=== PATIENT | female | born 1950 | race Caucasian/White ===

== ENCOUNTER 2024-06-01 09:15 | Day surgery (SDC) | payer MEDICARE, MEDICAID, SELFPAY ==
[2024-05-26 15:29] VITALS: BMI 18.2
[2024-05-27 08:31] VITALS: BMI 18.2
--- OUTSIDE RECORDS SUMMARY | 2024-06-01 09:17 | XMS_ITS | Continuity of Care Document ---
Author Organization [facility] Address [address] [place] [id number]- Care Team Providers Care [employer] History Teacher Name Role Phone Chaparro Mann MD Primary Care Physician Encounter [facility] [place] Date(s): 10/27/20 - 11/03/20 [facility] [address] [place] [id number] Attending Physician: Otto Gamino MD Admitting Physician: Otto Gamino MD Allergies, Adverse Reactions, Alerts Substance Reaction Severity Status carbamazepine double vision. vertigo Acti ve Haldol Active Immunizations Given and Recorded Vaccine Date Status Refusal Reason Influenza Virus Vaccine (oldterm) 08/21/06 Given influenza virus vaccine, inactivated 07/17/05 Give n tetanus-diphtheria toxoids (Td) 11/04/00 Given Medications Abilify 15 mg oral tablet 15 mg, 1, tablet, By Mouth, Daily, # 30 tablet, Refills 0, Maintenance, 04/14/19 17:11:10 EDT, at nightime Start Date: 04/14/19 Status: Ordered aspirin 81 mg oral delayed release tablet 81 mg, 1, tablet, By Mouth, Daily, Refills 0, Maintenance, 06/01/20 9:13:00 EDT Start Date: 06/01/20 Status: Ordered atorvastatin 10 mg oral tablet 1 tablet = 10 mg, By Mouth, Daily, # 30 tablet, 0 Refills, Maintenance, 06/10/19 11:51:22 EDT Start Date: 06/10/19 Status: Ordered buPROPion 100 mg/12 hours (SR) oral tablet, extended release 2 tablet = 200 mg, By Mouth, Daily, 0 Refills, Maintenance, 04/14/19 17:10:34 EDT Start Date: 04/14/19 Status: Ordered Duoneb Inhalation Solution 1, vials, Neb, Every 4 hours, PRN, Refills 0, Maintenance, 04/17/19 13:02:10 EDT, Inhalation Solution Start Date: 04/17/19 Status: Ordered elppa CoQ10 = 120 mg, By Mouth, Daily, 0 Refills, Maintenance, 03/07/15 14:21:56 EDT Start Date: 03/07/15 Status: Ordered Fish Oil 1200 mg oral capsule 1 capsule = 1,200 mg, By Mouth, Daily, 0 Refills, Maintenance, 03/07/15 14:23:59 EDT Start Date: 03/07/15 Status: Ordered Icaps AREDS By Mouth, Daily, 0 Refills, Maintenance, 10/27/20 15:50:00 EST, Partial fill upon patient request if the prescription is for a schedule II opioid drug. Start Date: 10/27/20 Status: Ordered Incruse Ellipta 62.5 mcg/inh inhalation powder 1 each, Inhalation, Every 24 hours, doses should be taken at least 24 hours apart, # 30 each, 0 Refills, Maintenance, 04/18/19 8:04:04 EDT, Powder Start Date: 04/18/19 Status: Ordered isosorbide mononitrate 30 mg oral tablet, extended release 30 mg, 1, tablet, By Mouth, Daily in AM, # 90 tablet, Refills 1, Tot. Refills 1, Maintenance, 08/16/20 15:10:00 EST, Route to Pharmacy Electronically, [facility]/pharmacy #[id number], Partial fill upon patient request, 159, cm, 07/08/20 6:37:00 EDT, Height, 49, kg... Start Date: 08/16/20 Stop Date: 02/12/21 Status: Ordered Metamucil 3.4 gm/5.2 gm oral powder for reconstitution = 3.4 Gm, By Mouth, Daily, 0 Refills, Maintenance, 03/25/20 8:37:00 EDT Start Date: 03/25/20 Status: Ordered metoprolol 25 mg oral tablet 12.5 mg, 0.5, tablet, By Mouth, 2 times a day, Dispense Tartrate, # 90 tablet, Refills 3, Tot. Refills 3, Maintenance, 11/25/19 10:23:00 EDT, Route to Pharmacy Electronically, [facility]/pharmacy #[id number], 162, cm, 09/21/19 15:36:00 EST, Height, 48.8, kg, 04/24... Start Date: 11/25/19 Stop Date: 11/19/20 Status: Ordered Myrbetriq 25 mg oral tablet, extended release 1 tablet = 25 mg, By Mouth, Daily, do not crush or chew, # 30 tablet, 0 Refills, Maintenance, 09/21/19 15:39:00 EST, ER Tablet Start Date: 09/21/19 Status: Ordered risperiDONE 1 mg oral tablet 1.5 mg, By Mouth, Daily at bedtime, Refills 0, Maintenance, 04/17/19 14:26:18 EDT Start Date: 04/17/19 Status: Ordered Synthroid 0.112 mg oral tablet 1 tablet = 112 mcg, By Mouth, Daily, NAME BRAND ONLY, # 90 tablet, 0 Refills, Maintenance, 07/21/1913:41:30 EST, Tablet Start Date: 07/21/19 Status: Ordered TEGretol XR 100 mg oral tablet, extended release 200 mg, By Mouth, 2 times a day, Refills 0, Maintenance, 04/20/19 15:28:29 EDT Start Date: 04/20/19 Status: Ordered TEGretol XR 400 mg oral tablet, extended release 400 mg, By Mouth, Daily at bedtime, Refills 0, Maintenance, 04/20/19 15:28:40 EDT Start Date: 04/20/19 Status: Ordered Problem List Condition Effective Dates Status Health Status Inform ant Bipolar depression(Confirmed) Active Chronic obstructive airway disease(Confirmed) Active CKD (chronic kidney disease)(Confirmed) Active Diabetes mellitus - adult onset(Confirmed) Active ParaplannerJuan Jose Villanueva(Confirmed) Active Hypothyroidism(Confirmed) Active Osteoporosis(Confirmed) Active Systolic dysfunction(Confirmed) Active PVCs (premature ventricular contractions)(Confirmed) Active Vital Signs Most recent to oldest [Reference Range]: 1 Height 162.5 cm (10/27/20 3:17 PM) Weight 51 kg (10/27/20 3:17 PM) Pulse Rate [55-90 bpm] 64 bpm (10/27/20 3:17 PM) Body Mass Index [18.5-24.99] 19.31 (10/27/20 3:17 PM) Blood Pressure [90-138/55-84 mm Hg] 124/ 70mm Hg (10/27/20 3:17 PM) Mode of Delivery (Oxygen) Room air (10/27/20 3:17 PM) Blood pressure sites Arm, left (10/27/20 3:17 PM) Weight Obtained Via Patient/family state d (10/27/20 3:17 PM) Social History Social History Type Response Smoking Status Former smoker, quit more than 30 days ago; Other: quit 5 yrs ago 04/19/2015; entered on: 05/12/20 Sex
--- OUTSIDE RECORDS SUMMARY | 2024-06-01 09:17 | XMS_ITS | Continuity of Care Document ---
Author Organization [facility] Address [address] [place] [address]- Care Team Providers Care Title Examiner Name Role Phone Chaparro Mann MD Primary Care Physician Encounter [facility] [place] Date(s): 08/13/23 - 09/12/23 [facility] [address] [place] [address]- Attending Physician: Vikram Pierce Admitting Physician: Vikram Pierce Referring Physician: Vikram Pierce Allergies, Adverse Reactions, Alerts Substance Reaction Severity Status carbamazepine double vision. vertigo Acti ve Haldol Active Immunizations Given and Recorded Vaccine Date Status Refusal Reason hepatitis B adult vaccine 09/13/22 Recorded hepatitis B adult vaccine 08/13/22 Recorded [id number] 12y+ bivalent booster vax 07/13/22 Recorded SARS-CoV-2 (COVID-19) mRNA BNT-162b2 vac 12/27/21 Recorded SARS-CoV-2 (COVID-19) mRNA BNT-162b2 vac 08/04/21 Recorded SARS-CoV-2 (COVID-19) mRNA BNT-162b2 vac 12/21/20 Recorded SARS-CoV-2 (COVID-19) mRNA BNT-162b2 vac 11/29/20 Recorded Influenza Virus Vaccine (oldterm) 08/21/06 Given influenza virus vaccine, inactivated 07/17/05 Give n tetanus-diphtheria toxoids (Td) 11/04/00 Given Medications Abilify 15 mg oral tablet 15 mg, 1, tablet, By Mouth, Daily, # 30 tablet, Refills 0, Maintenance, 04/14/19 17:11:10 EDT, at nightime Start Date: 04/14/19 Status: Ordered Albuterol (Eqv-ProAir HFA) 90 mcg/inh inhalation aerosol 2 puffs, Inhalation, Every 6 hours, PRN Wheezing/Shortness of Breath, # 6.7 Gm, 11 Refills, Maintenance, 03/04/23 11:27:00 EDT, [facility]/pharmacy #[id number], Partial fill upon patient request if the prescription is for a schedule II opioid drug., 2 puffs Inhala... Start Date: 03/04/23 Status: Ordered amLODIPine 5 mg oral tablet 5 mg, 1, tablet, By Mouth, Daily, # 30 tablet, Refills 0, Maintenance, 08/14/22 14:55:00 EST, Partial fill upon patient request if the prescription is for a schedule II opioid drug. Start Date: 08/14/22 Status: Ordered atorvastatin 10 mg oral tablet 1 tablet = 10 mg, By Mouth, Daily, # 30 tablet, 0 Refills, Maintenance, 06/10/19 11:51:22 EDT Start Date: 06/10/19 Status: Ordered azelastine 137 mcg/inh (0.1%) nasal spray 2 sprays, Nares, Both, Daily, PRN Other Allergies, # 30 mL, 11 Refills, Maintenance, 03/04/23 11:27:00 EDT, [place], [facility]/pharmacy #[id number], Partial fill upon patient request if the prescription is for aschedule II opioid drug., 2 sprays Nares, Both Kisha... Start Date: 03/04/23 Status: Ordered buPROPion 100 mg/12 hours (SR) oral tablet, extended release 2 tablet = 200 mg, By Mouth, Daily, 0 Refills, Maintenance, 04/14/19 17:10:34 EDT Start Date: 04/14/19 Status: Ordered elppa CoQ10 = 120 mg, By Mouth, Daily, 0 Refills, Maintenance, 03/07/15 14:21:56 EDT Start Date: 03/07/15 Status: Ordered Fish Oil 1200 mg oral capsule 1 capsule = 1,200 mg, By Mouth, Daily, 0 Refills, Maintenance, 03/07/15 14:23:59 EDT Start Date: 03/07/15 Status: Ordered Incruse Ellipta 62.5 mcg/inh inhalation powder 1 each = 62.5 mcg, Inhalation, Every 24 hours, doses should be taken at least 24 hours apart, # 1 each, 11 Refills, Maintenance, 03/04/23 11:28:00 EDT, Powder, [facility]/pharmacy #[id number], Partial fill upon patient request if the prescription is for a schedule... Start Date: 03/04/23 Status: Ordered metoprolol 25 mg oral tablet, extended release 25 mg, 1, tablet, By Mouth, Daily, # 90 tablet, Refills 3, Tot. Refills 3, Maintenance, 08/15/23 11:52:00 EST, [id number], 161, cm, 07/22/23 12:23:00 EST, Height, 46.6, kg, 07/15/23 16:43:00 EST, Dry Weight Start Date: 08/15/23 Stop Date: 08/09/24 Status: Ordered PreserVision AREDS 2 oral capsule By Mouth, Daily, BID, 0 Refills, Maintenance, 12/07/20 13:34:00 EDT, Partial fill upon patient request if the prescription is for a schedule II opioid drug. Start Date: 12/07/20 Status: Ordered Rayaldee 30 mcg oral capsule, extended release 1 capsule = 30 mcg, By Mouth, Daily at bedtime, 0 Refills, Maintenance, 03/23/22 13:47:00 EDT, Partial fill upon patient request if the prescription is for a schedule II opioid drug. Start Date: 03/23/22 Status: Ordered risperiDONE 1 mg oral tablet 1.5 mg, By Mouth, Daily at bedtime, Refills 0, Maintenance, 04/17/19 14:26:18 EDT Start Date: 04/17/19 Status: Ordered Synthroid 0.112 mg oral tablet 1 tablet = 112 mcg, By Mouth, Daily, NAME BRAND ONLY, # 90 tablet, 0 Refills, Maintenance, 07/21/1913:41:30 EST, Tablet Start Date: 07/21/19 Status: Ordered TEGretol XR 200 mg oral tablet, extended release 1 tablet = 200 mg, By Mouth, 2 times a day, brand name only, # 60 tablet, 5 Refills, Maintenance, 03/06/22 12:05:00 EDT, ER Tablet, Partial fill upon patient request if the prescription is for a schedule II opioid drug. Start Date: 03/06/22 Status: Ordered Problem List Condition Confirmation Course Effective Dates Status H ealth Status Informant Bipolar depression Confirmed Active Chronic obstructive airway disease Confirmed Active CKD (chronic kidney disease) Confirmed Active Diabetes mellitus - adult onset Confirmed Active Grazing Aide-Johanny Villanueva Confirmed Active Hypothyroidism Confirmed Active Osteoporosis Confirmed Active Systolic dysfunction Confirmed Active PVCs (premature ventricular contractions) Confirmed Active Social History Social History Type Response Smoking Status Former smoker, quit more than 30 days ago; Other: quit 5 yrs ago 04/19/2015; entered on: 05/12/20 Sex Patient Care team information Care Team Personnel Name: Vera Mccauley Position: [facility] Outreach Member Role: Lifetime Consulting Physician Name: Susan Smith RN Position: [facility] ED RN W/OE and Tasks Member Role: Primary Care Nurse Name: Juan Carlos Chapa RN Position: [facility] RN Member Role: Primary Care Nurse Name: Barbara Chapa RN Position: [facility] AMB Nurse Member Role: Primary Care Nurse Name: Maryuri Cesar MD Position: [facility] Renal MD Member Role: Lifetime Consulting Physician Address: Address: [address] [place] [address] [place] [address]- Name: Gaye Mondragon RN Position: [facility] RN Supv Member Role: Primary Care Nurse Name: Qi Ordaz RN Position: [facility] SN RN Member Role: Primary Care Nurse Name: Chaparro Mann MD Position: [facility] Physician - Primary Care Member Role: PCP Address: Address: [address] [place] [address], [place] [address]- Care Team Related Persons Name: SUSAN TAM Address: home [address] [place] [address] Name: NANCIE WELLS Address: [address] [place] [address]
--- OUTSIDE RECORDS SUMMARY | 2024-06-01 09:17 | XMS_ITS | Continuity of Care Document ---
Author Organization [facility] Address [address] [place] [address]- Care Team Providers Care Link Trainer Operator Name Role Phone Chaparro Mann MD Primary Care Physician [phone] Encounter [facility] [place] Date(s): 01/30/23 - 03/01/23 [facility] [address] [place] [address]- Attending Physician: Vikram Pierce Admitting Physician: AdmVikram gracia Referring Physician: Vikram Pierce Allergies, Adverse Reactions, Alerts Substance Reaction Severity Status carbamazepine double vision. vertigo Acti ve Haldol Active Immunizations Given and Recorded Vaccine Date Status Refusal Reason hepatitis B adult vaccine 09/13/22 Recorded hepatitis B adult vaccine 08/13/22 Recorded [id number] 12y+ bivalent booster vax 07/13/22 Recorded SARS-CoV-2 [...] at nightime Start Date: 04/14/19 Status: Ordered amLODIPine 5 mg oral tablet [...] EDT, Powder Start Date: 04/18/19 Status: Ordered metoprolol 25 mg oral tablet, extended release 25 mg, 1, tablet, By Mouth, Daily, # 90 tablet, Refills 3, Tot. Refills 3, Maintenance, 10/31/22 16:31:00 EST, Route to Pharmacy Electronically, [facility]/pharmacy #[id number], 161, cm, 08/15/22 8:56:00 EST, Height, 51, kg, 07/28/21 7:20:00 EST, Dry Weight Start Date: 10/31/22 Stop Date: 10/26/23 Status: Ordered PreserVision AREDS 2 oral capsule [...] Diabetes mellitus - adult onset Confirmed Active Daub Color Mixer-Johanny Villanueva Confirmed Active Hypothyroidism Confirmed Active Osteoporosis Confirmed Active Systolic dysfunction Confirmed Active PVCs (premature ventricular contractions) Confirmed Active Social History Social History Type Response Smoking Status Former smoker, quit more than 30 days ago; Other: quit 5 yrs ago 04/19/2015; entered on: 05/12/20 Sex EKG study * Event Display: EKG Authored Date: Patient Care team information Care Team Personnel Name: Vera Mccauley Position: [facility] Outreach Member Role: Lifetime Consulting Physician Name: Susna Smith RN Position: [facility] ED RN W/OE and Tasks Member Role: Primary Care Nurse Name: Teri Salazar RN Position: [facility] RN Member Role: Primary Care Nurse Name: Juan Carlos Chapa RN Position: [facility] RN Member Role: Primary Care Nurse Name: Barbara Chapa RN Position: [facility] RN Member Role: Primary Care Nurse Name: Gaye Mondragon RN Position: [facility] RN Supv Member Role: Primary Care Nurse Name: Qi Ordaz RN Position: [facility] SN RN Member Role: Primary Care Nurse Name: Chaparro Mann MD Position: [facility] Physician - Primary Care Member Role: PCP Address: Address: [address] [place] [id number]- Care Team Related Persons Name: SUSAN TAM Address: home [address] [place] [address] Name: NANCIE WELLS Address: [address] [place] [address]
--- OUTSIDE RECORDS SUMMARY | 2024-06-01 09:17 | XMS_ITS | Continuity of Care Document ---
Author Organization [facility] Address [address] [place] [address]- Care Team Providers Care Flat Sorting Machine Clerk Name Role Phone Chaparro Mann MD Primary Care Physician Encounter [facility] [place](s): 07/31/21 - 08/30/21 [facility] [address] [place] [id number]- [place] Allergies, Adverse Reactions, Alerts Substance Reaction Severity [...] EDT, Powder Start Date: 04/18/19 Status: Ordered Metamucil 3.4 gm/5.2 gm oral powder for reconstitution = 3.4 Gm, By Mouth, Daily, 0 Refills, Maintenance, 03/25/20 8:37:00 EDT Start Date: 03/25/20 Status: Ordered metoprolol 25 mg oral tablet 12.5 mg, 0.5, tablet, By Mouth, 2 times a day, Dispense Tartrate, # 90 tablet, Refills 3, Tot. Refills 3, Maintenance, 11/14/20 16:22:00 EST, Route to Pharmacy Electronically, [facility]/pharmacy #[id number], 162.5, cm, 10/27/20 15:17:00 EST, Height, 49, kg, 07/08... Start Date: 11/14/20 Stop Date: 11/09/21 Status: Ordered Myrbetriq 25 mg oral tablet, extended release 1 tablet = 25 mg, By Mouth, Daily, do not crush or chew, # 30 tablet, 0 Refills, Maintenance, 09/21/19 15:39:00 EST, ER Tablet Start Date: 09/21/19 Status: Ordered PreserVision AREDS 2 oral capsule By Mouth, Daily, BID, 0 Refills, Maintenance, 12/07/20 13:34:00 EDT, Partial fill upon patient request if the prescription is for a schedule II opioid drug. Start Date: 12/07/20 Status: Ordered Rayaldee 30 mcg oral capsule, extended release 1 capsule = 30 mcg, By Mouth, Daily, 0 Refills, Maintenance, 07/28/21 7:15:00 EST, Partial fill upon patient request if the prescription is for a schedule II opioid drug. Start Date: 07/28/21 Status: Ordered risperiDONE 1 mg oral tablet [...] 15:28:40 EDT Start Date: 04/20/19 Status: Ordered TEGretol XR 400 mg oral tablet, extended release 400 mg, 1, tablet, By Mouth, 2 times a day, pt takes 1 tab in the am ,1 tab in the after noon and 2tabs at night., Refills 0, Maintenance, 12/21/20 9:25:00 EDT, Partial fill upon patient request if the prescription is for a schedule II opioid drug. Start Date: 12/21/20 Status: Ordered Ubiquinone = 100 mg, By Mouth, Daily, 0 Refills, Maintenance, 12/07/20 13:34:00 EDT, Partial fill upon patientrequest if the prescription is for a schedule II opioid drug. Start Date: 12/07/20 Status: Ordered Problem List Condition Effective Dates Status Health Status Inform ant Bipolar depression(Confirmed) Active Chronic obstructive airway disease(Confirmed) Active CKD (chronic kidney disease)(Confirmed) Active Diabetes mellitus - adult onset(Confirmed) Active Vessel Traffic OfficerJuan Jose 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
--- OUTSIDE RECORDS SUMMARY | 2024-06-01 09:17 | XMS_ITS | Continuity of Care Document ---
Author Organization [facility] Address [address] [place] [address]- Care Team Providers Care Call Center Team Leader Name Role Phone Chaparro Mann MD Primary Care Physician Encounter [facility] [place] Date(s): 05/11/20 - 06/10/20 [facility] [address] [place] [id number]- [facility] Allergies, Adverse Reactions, Alerts Substance Reaction Severity [...] 17:10:34 EDT Start Date: 04/14/19 Status: Ordered calcium (as citrate)-vitamin D 200 mg-250 intl units oral tablet See Instructions, 1 tablet By Mouth daily, # 100 tablet, 6 Refills, Maintenance, 04/10/17 11:39:51,Tablet Start Date: 04/10/17 Status: Ordered Docusate 0 Refills, Maintenance, 06/01/20 9:13:00 EDT Start Date: 06/01/20 Status: Ordered Duoneb Inhalation Solution 1, vials, [...] EDT, Powder Start Date: 04/18/19 Status: Ordered Keppra 500 mg oral tablet = 500 mg, By Mouth, 2 times a day, 0 Refills, Maintenance, 04/20/19 15:28:56 EDT, Tablet Start Date: 04/20/19 Status: Ordered Metamucil 3.4 gm/5.2 gm oral powder for reconstitution = 3.4 Gm, By Mouth, Daily, 0 Refills, Maintenance, 03/25/20 8:37:00 EDT Start Date: 03/25/20 Status: Ordered metoprolol 25 mg oral tablet 12.5 mg, 0.5, tablet, By Mouth, 2 times a day, Dispense Tartrate, # 90 tablet, Refills 3, Tot. Refills 3, Maintenance, 11/25/19 10:23:00 EDT, Route to Pharmacy Electronically, [facility]/pharmacy #[id number], 162, cm, 09/21/19 15:36:00 EST, Height, 48.8, kg, 04/24... Start Date: 11/25/19 Stop Date: 11/19/20 Status: Ordered Myrbetriq 25 mg oral tablet, extended release 1 tablet = 25 mg, By Mouth, Daily, do not crush or chew, # 30 tablet, 0 Refills, Maintenance, 09/21/19 15:39:00 EST, ER Tablet Start Date: 09/21/19 Status: Ordered PrednisoLONE = 10 mg, By Mouth, Daily, 0 Refills, Maintenance, 03/25/20 8:34:00 EDT Start Date: 03/25/20 Status: Ordered PreserVision AREDS 2 oral capsule 1 capsule, By Mouth, 2 times a day, 0 Refills, Maintenance, 04/14/19 1:21:46 EDT Start Date: 04/14/19 Status: Ordered risperiDONE 1 mg oral tablet [...] Start Date: 04/20/19 Status: Ordered TEGretol XR 200 mg oral tablet, extended release 1 tablet = 200 mg, By Mouth, 4 times a day, 0 Refills, Maintenance, 03/25/20 8:35:00 EDT Start Date: 03/25/20 Status: Ordered TEGretol XR 400 mg oral tablet, extended release 400 mg, By Mouth, Daily at bedtime, Refills 0, Maintenance, 04/20/19 15:28:40 EDT Start Date: 04/20/19 Status: Ordered VESIcare 10 mg oral tablet 1 tablet = 10 mg, By Mouth, Daily, # 30 tablet, 0 Refills, Maintenance, 03/07/15 14:21:42, Tablet Start Date: 03/07/15 Status: Ordered Problem List Condition Effective Dates Status Health Status Inform ant Bipolar depression(Confirmed) Active Chronic obstructive airway disease(Confirmed) Active CKD (chronic kidney disease)(Confirmed) Active Diabetes mellitus - adult onset(Confirmed) Active 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
--- OUTSIDE RECORDS SUMMARY | 2024-06-01 09:17 | XMS_ITS | Continuity of Care Document ---
Author Organization [facility] Address [address] [place] [address]- Care Team Providers Care Knock Out Hand Name Role Phone Chaparro Mann MD Primary Care Physician [phone] Encounter [facility] [place] Date(s): 10/26/21 - 11/25/21 [facility] [address] [place] [id number]- Attending Physician: Vikram Pierce Admitting Physician: Vikram Pierce Referring Physician: Admtr, Ar8 Allergies, Adverse Reactions, Alerts Substance Reaction Severity [...] at nightime Start Date: 04/14/19 Status: Ordered atorvastatin 10 mg oral tablet [...] 8:37:00 EDT Start Date: 03/25/20 Status: Ordered Metoprolol Tartrate 25 mg oral tablet 0.5 tablet, By Mouth, 2 times a day, # 90 tablet, 3 Refills, [id number], 162.5, cm, 10/26/21 12:37:00 EST, Height, 51, kg, 07/28/21 7:20:00 EST, Dry Weight Start Date: 11/06/21 Status: Ordered Myrbetriq 25 mg oral tablet, [...] Active Diabetes mellitus - adult onset(Confirmed) Active 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
--- OUTSIDE RECORDS SUMMARY | 2024-06-01 09:17 | XMS_ITS | Continuity of Care Document ---
Author Organization [facility] Address [address] [place] [address]- Care Team Providers Care Air Drier Machine Operator Name Role Phone Chaparro Mann MD Primary Care Physician [phone] [place] [facility] [place](s[place] 10/29/23 - 11/28/23 [facility] [address] [place] [address]- [place] Allergies, Adverse Reactions, Alerts Substance Reaction Severity Status carbamazepine double vision. vertigo Acti ve Haldol Active Immunizations Given and Recorded Vaccine Date Status Refusal Reason hepatitis B adult vaccine 09/13/22 Recorded hepatitis B adult vaccine 08/13/22 Recorded [id number] 12y+ bivalent booster vax 07/13/22 Recorded SARS-CoV-2 [...] Gm, 11 Refills, Maintenance, 03/04/23 11:27:00 EDT, [facility]/pharmacy #[id number], Partial fill upon patient request if [...] mL, 11 Refills, Maintenance, 03/04/23 11:27:00 EDT, [place], [facility]/pharmacy #[id number], Partial fill upon patient request if [...] 11 Refills, Maintenance, 03/04/23 11:28:00 EDT, [place], [facility]/pharmacy #[id number], Partial fill upon patient request if the prescription is for a schedule... Start Date: 03/04/23 Status: Ordered metoprolol 25 mg oral tablet, extended release 25 mg, 1, tablet, By Mouth, Daily, # 90 tablet, Refills 3, Tot. Refills 3, Maintenance, 08/15/23 11:52:00 EST, Route to Pharmacy Electronically, [facility]/pharmacy #[id number], 161, cm, 07/22/23 12:23:00 EST, Height, [...] Diabetes mellitus - adult onset Confirmed Active Manager Inventory ControlJuan Jose Villanueva Confirmed Active Hypothyroidism Confirmed Active Osteoporosis Confirmed Active Systolic dysfunction Confirmed Active PVCs (premature ventricular contractions) Confirmed Active Social History Social History Type Response Smoking Status Former smoker, quit more than 30 days ago; Other: quit 5 yrs ago 04/19/2015; entered on: 05/12/20 Sex Patient Care team information Care Team Personnel Name: Vera Mccauley Position: [facility] Outreach Member Role: Lifetime Consulting Physician Name: Susan Smith RN Position: [facility] ED RN W/OE and Tasks Member Role: Primary Care Nurse Name: Martin Lopez RN Position: [facility] SN RN Member Role: Primary Care Nurse Name: Juan Carlos Chapa RN Position: [facility] RN Member Role: Primary Care Nurse Name: Barbara Chapa RN Position: [facility] AMB Nurse Member Role: Primary Care Nurse Name: Maryuri Cesar MD Position: [facility] Renal MD Member Role: Lifetime Consulting Physician Address: Address: [address] [place] [address] [place] [address]- Name: Gaye Mondragon RN Position: [facility] RN Supv Member Role: Primary Care Nurse Name: Qi Ordaz RN Position: [facility] SN RN Member Role: Primary Care Nurse Name: Chaparro Mann MD Position: [facility] Physician - Primary Care Member Role: PCP Address: Address: [address] [place] [address], [place] [address]- Care Team Related Persons Name: SUSAN TAM Address: home [address] [place] [address] Name: NANCIE WELLS Address: home [address] [place] [address]
--- OUTSIDE RECORDS SUMMARY | 2024-06-01 09:17 | XMS_ITS | Continuity of Care Document ---
Author Organization [facility] Address [address] [place] [address]- Care Team Providers Care Grid Inspector Name Role Phone Chaparro Mann MD Primary Care Physician [phone] Encounter [facility] [place] Date(s): 06/09/20 - 07/09/20 [facility] [address] [place] [address]- [facility] Allergies, Adverse Reactions, Alerts Substance Reaction [...] 11/25/19 10:23:00 EDT, Route to Pharmacy Electronically, [facility]/pharmacy #[id number], 162, cm, 09/21/19 15:36:00 EST, Height, 48.8, [...] Active Diabetes mellitus - adult onset(Confirmed) Active Toy Stuffer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
--- OUTSIDE RECORDS SUMMARY | 2024-06-01 09:18 | XMS_ITS | Continuity of Care Document ---
Author Organization [facility] Address [address] [place] [address]- Care Team Providers Care Ditching Machine Operator Name Role Phone Chaparro Mann MD Primary Care Physician [place] [facility] [place]15/23 - 09/14/23 [facility] [address] [place] [address]- Allergies, Adverse Reactions, Alerts Substance Reaction Severity Status carbamazepine double vision. vertigo Acti ve Haldol Active Immunizations Given and Recorded Vaccine Date Status Refusal Reason hepatitis B adult vaccine 09/13/22 Recorded hepatitis B adult vaccine 08/13/22 Recorded [id number] 12y+ bivalent booster vax 07/13/22 Recorded SARS-CoV-2 [...] Gm, 11 Refills, Maintenance, 03/04/23 11:27:00 EDT, [id number], Partial fill upon patient request if [...] mL, 11 Refills, Maintenance, 03/04/23 11:27:00 EDT, [place], [facility]/pharmacy #[id number], Partial fill upon patient request [...] 11 Refills, Maintenance, 03/04/23 11:28:00 EDT, [place], [facility]/pharmacy #[id number], Partial fill upon patient request if the prescription is for a schedule... Start Date: 03/04/23 Status: Ordered metoprolol 25 mg oral tablet, extended release 25 mg, 1, tablet, By Mouth, Daily, # 90 tablet, Refills 3, Tot. 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 Hypothyroidism Confirmed Active Osteoporosis Confirmed Active Systolic dysfunction Confirmed Active PVCs (premature ventricular contractions) Confirmed Active Social History Social History Type Response Smoking Status Former smoker, quit more than 30 days ago; Other: quit 5 yrs ago 04/19/2015; entered on: 05/12/20 Sex Patient Care team information Care Team Personnel Name: Vera Mccauley Position: [facility] Outreach Member Role: Lifetime Consulting Physician Name: Luis GUZMÁN, Susan Position: [facility] ED RN W/OE and Tasks Member Role: Primary Care Nurse Name: Juan Carlos Chapa RN Position: [facility] RN Member Role: Primary Care Nurse Name: Barbara Chapa RN Position: [facility] AMB Nurse Member Role: Primary Care Nurse Name: Maryuri Cesar MD Position: [facility] Renal MD Member Role: Lifetime Consulting Physician Address: Address: [address] [place] [address] Renal and Transplant [facility], [place] [address]- Name: Gaye Mondragon RN Position: [facility] RN Supv Member Role: Primary Care Nurse Name: Qi Ordaz RN Position: [facility] SN RN Member Role: Primary Care Nurse Name: Chaparro Mann MD Position: [facility] Physician - Primary Care Member Role: PCP Address: Address: [address] [place] [address], [place] [address]- Care Team Related Persons Name: SUSAN TAM Address: home [address] [place] [address] Name: NANCIE WELLS Address: [address] [place] [address]
--- OUTSIDE RECORDS SUMMARY | 2024-06-01 09:18 | XMS_ITS | Continuity of Care Document ---
Author Organization [facility] Address [address] [place] [address]- Care Team Providers Care Speech And Language Clinician Name Role Phone Johnathan CAMERON, Chaparro West Primary Care Physician [phone] [place] [facility] [place] - 04/20/21 [facility] [address] [place] [address] Allergies, Adverse Reactions, Alerts Substance Reaction Severity [...] 11/14/20 16:22:00 EST, Route to Pharmacy Electronically, [facility]/pharmacy #[id number], 162.5, cm, 10/27/20 15:17:00 EST, Height, [...] opioid drug. 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
--- OUTSIDE RECORDS SUMMARY | 2024-06-01 09:18 | XMS_ITS | Continuity of Care Document ---
Author Organization [facility] Address [address] [place] [address]- Care Team Providers Care Oil Well Logging Engineer Name Role Phone Chaparro Mann MD Primary Care Physician En[place] [facility] [place](s): 09/08/20 - 01/06/21 [facility] [address] [place] [id number] Attending Physician: Riky Garza MD Admitting Physician: Riky Garza MD Referring Physician: Chaparro Mann MD Allergies, Adverse Reactions, Alerts Substance Reaction [...] 08/16/20 15:10:00 EST, Route to Pharmacy Electronically, [facility]/pharmacy #[id number], Partial fill upon patient request, 159, cm, [...] 16:22:00 EST, Route to Pharmacy Electronically, [facility]/pharmacy #[id number], 162.5, cm, 10/27/20 15:17:00 EST, [...] Active Diabetes mellitus - adult onset(Confirmed) Active Log Buyer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
--- OUTSIDE RECORDS SUMMARY | 2024-06-01 09:18 | XMS_ITS | Continuity of Care Document ---
Author Organization [facility] Address [address] [place] [address]- Care Team Providers Care Research Physiologist Name Role Phone Chaparro Mann MD Primary Care Physician [place] [facility] [place]/04/21 - 08/03/[address] [address] Attending Physician: Admbasil, Vikram Admitting Physician: Admtr, Vikram Referring Physician: Admtr, Ar8 Allergies, Adverse Reactions, [...] 11/14/20 16:22:00 EST, Route to Pharmacy Electronically, [facility]/pharmacy #[id number], 162.5, cm, 10/27/20 15:17:00 EST, [...] Active Diabetes mellitus - adult onset(Confirmed) Active 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
--- OUTSIDE RECORDS SUMMARY | 2024-06-01 09:18 | XMS_ITS | Continuity of Care Document ---
Author Organization [facility] Address [address] [place] [address]- Care Team Providers Care Car Wash Attendant Name Role Phone Chaparro Mann MD Primary Care Physician Encounter [facility] [place] Date(s): 08/11/19 - 09/26/19 [facility] [address] [place] [address]- [facility] Attending Physician: Not on Staff, Attending MD Allergies, Adverse Reactions, Alerts Substance Reaction [...] 04/10/17 11:39:51,Tablet Start Date: 04/10/17 Status: Ordered Duoneb Inhalation Solution 1, vials, [...] EDT, Tablet Start Date: 04/20/19 Status: Ordered metoprolol succinate 50 mg oral capsule, extended release 1 capsule = 50 mg, By Mouth, Daily, # 30 capsule, 3 Refills, Maintenance, 08/13/19 9:25:00 EST, ER Capsule, Dry Weight Start Date: 08/13/19 Stop Date: 12/11/19 Status: Ordered Myrbetriq 25 mg oral tablet, [...] Effective Dates Status Health Status Inform ant Chronic obstructive airway disease(Confirmed) Active CKD (chronic kidney disease)(Confirmed) Active Diabetes mellitus - adult onset(Confirmed) Active Grain Manager-Johanny Villanueva(Confirmed) Active Hypothyroidism(Confirmed) Active Osteoporosis(Confirmed) Active Social History Social History Type Response Smoking Status Former smoker, quit more than 30 days ago entered on: 05/12/19 Sex
--- OUTSIDE RECORDS SUMMARY | 2024-06-01 09:18 | XMS_ITS | Continuity of Care Document ---
Author Organization [facility] Address [address] [place] [address]- Care Team Providers Care Tool Grinder Set Up Operator Gear Name Role Phone Chaparro Mann MD Primary Care Physician [phone] [place] [facility] [place] Date(s): 02/14/24 - 03/15/24 [facility] [address] [place] [address]- Attending Physician: Vikram Pierce Admitting Physician: AdmtrVikram Referring Physician: Admtr, Vikram Allergies, Adverse Reactions, Alerts Substance Reaction Severity Status carbamazepine double vision. vertigo Acti ve Haldol Active Immunizations Given and Recorded Vaccine Date Status Refusal Reason hepatitis B adult vaccine 09/13/22 Recorded hepatitis B adult vaccine 08/13/22 Recorded [id number] 12y+ bivalent booster vax 07/13/22 Recorded SARS-CoV-2 [...] Gm, 11 Refills, Maintenance, 03/04/23 11:27:00 EDT, [facility]/pharmacy #[id number], Partial fill upon patient request if the prescription is for a schedule II opioid drug., 2 puffs Inhala... Start Date: 03/04/23 Status: Ordered Albuterol (Eqv-Ventolin HFA) 90 mcg/inh inhalation aerosol 2 puffs, Inhalation, Every 6 hours, 0 Refills, Maintenance, 02/14/24 12:32:00 EDT, Partial fill upon patient request if the prescription is for a schedule II opioid drug. Start Date: 02/14/24 Status: Ordered amLODIPine 5 mg oral tablet [...] mL, 11 Refills, Maintenance, 03/04/23 11:27:00 EDT, [place], [facility]/pharmacy #[id number], Partial fill upon patient request if the prescription is for aschedule II opioid drug., 2 sprays Nares, Both Kisha... Start Date: 03/04/23 Status: Ordered buPROPion 100 mg/12 hours (SR) oral tablet, extended release 2 tablet = 200 mg, By Mouth, Daily, 0 Refills, Maintenance, 04/14/19 17:10:34 EDT Start Date: 04/14/19 Status: Ordered CoQ10 100 mg oral capsule 1 capsule = 100 mg, By Mouth, Daily, 0 Refills, Maintenance, 02/14/24 12:31:00 EDT, Partial fill upon patient request if the prescription is for a schedule II opioid drug. Start Date: 02/14/24 Status: Ordered elppa CoQ10 = 120 mg, [...] 11 Refills, Maintenance, 03/04/23 11:28:00 EDT, [place], [facility]/pharmacy #[id number], Partial fill upon patient request if the prescription is for a schedule... Start Date: 03/04/23 Status: Ordered metoprolol 25 mg oral tablet, extended release 25 mg, 1, tablet, By Mouth, Daily, # 90 tablet, Refills 3, Tot. Refills 3, Maintenance, 08/15/23 11:52:00 EST, Route to Pharmacy Electronically, [facility]/pharmacy #[id number], 161, cm, 07/22/23 12:23:00 EST, Height, [...] Status: Ordered risperiDONE 1 mg oral tablet 1 mg, 1, tablet, By Mouth, 2 times a day, Refills 0, Maintenance, 02/14/24 12:31:00 EDT, Partial fill upon patient request if the prescription is for a schedule II opioid drug. Start Date: 02/14/24 Status: Ordered risperiDONE 1 mg oral tablet [...] opioid drug. Start Date: 03/06/22 Status: Ordered Trelegy Ellipta Inhalation, Daily, 0 Refills, Maintenance, 02/14/24 12:31:00 EDT, Partial fill upon patient requestif the prescription is for a schedule II opioid drug. 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 Active Hypothyroidism Confirmed Active Osteoporosis Confirmed Active Systolic dysfunction Confirmed Active PVCs (premature ventricular contractions) Confirmed Active Social History Social History Type Response Smoking Status Former smoker, quit more than 30 days ago; Other: quit 5 yrs ago 04/19/2015; entered on: 05/12/20 Sex Patient Care team information Care Team Personnel Name: Vera Mccauley Position: [facility] Outreach Member Role: Lifetime Consulting Physician Name: Susan Smith RN Position: [facility] ED RN W/OE and Tasks Member Role: Primary Care Nurse Name: Martin Lopez RN Position: [facility] SN RN Member Role: Primary Care Nurse Name: Teri Salazar RN Position: [facility] SN RN Member Role: Primary Care Nurse Name: Juan Carlos Chapa RN Position: [facility] RN Member Role: Primary Care Nurse Name: Maryuri Cesar MD Position: [facility] Renal MD Member Role: Lifetime Consulting Physician Address: Address: [address] [place] [address] [facility] [address] Name: Gaye Mondragon RN Position: S RN Supv Member Role: Primary Care Nurse Name: Qi Ordaz RN Position: S RN Member Role: Primary Care Nurse Name: Chaparro Mann MD Position: [facility] Physician - Primary Care Member Role: PCP Address: Address: [address] [place] [address]- Care Team Related Persons Name: SUSAN TAM Address: home [address] [place] [address] Name: NANCIE WELLS Address: [address] [place] [address]
--- OUTSIDE RECORDS SUMMARY | 2024-06-01 09:18 | XMS_ITS | Continuity of Care Document ---
Author Organization [facility] Address [address] [address]- Care Team Providers Care Commercial Relationship Manager Name Role Phone Chaparro Mann MD Primary Care Physician [phone] Encounter [facility] [place] Date(s): 03/17/24 - 04/16/24 [facility] [address] [place] [address] Attending Physician: AdmVikram gracia Admitting Physician: Admtr, Ar8 Referring Physician: Admtr, Ar8 Allergies, Adverse Reactions, Alerts Substance Reaction Severity Status carbamazepine double vision. vertigo Acti ve Haldol Active Immunizations Given and Recorded Vaccine Date Status Refusal Reason hepatitis B adult vaccine 09/13/22 Recorded hepatitis B adult vaccine 08/13/22 Recorded [id number] 12y+ bivalent booster vax 07/13/22 Recorded SARS-CoV-2 [...] Gm, 11 Refills, Maintenance, 03/04/23 11:27:00 EDT, [facility]/pharmacy #[id number], Partial fill upon patient request [...] mL, 11 Refills, Maintenance, 03/04/23 11:27:00 EDT, [place], [facility]/pharmacy #[id number], Partial fill upon patient request [...] 11 Refills, Maintenance, 03/04/23 11:28:00 EDT, [place], [facility]/pharmacy #[id number], Partial fill upon patient request if the prescription is for a schedule... Start Date: 03/04/23 Status: Ordered metoprolol 25 mg oral tablet, extended release 25 mg, 1, tablet, By Mouth, Daily, # 90 tablet, Refills 3, Tot. 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 Hypothyroidism Confirmed Active Osteoporosis Confirmed Active Systolic dysfunction Confirmed Active PVCs (premature ventricular contractions) Confirmed Active Social History Social History Type Response Smoking Status Former smoker, quit more than 30 days ago; Other: quit 5 yrs ago 04/19/2015; entered on: 05/12/20 Sex Radiology * Event Display: CT Scan Abdomen, Non- Authored Date: Patient Care team information Care Team Personnel Name: Garrick , Vera Position: [facility] Outreach Member Role: Lifetime Consulting Physician Name: Charli Smith RN Position: [facility] ED RN W/OE and Tasks Member Role: Primary Care Nurse Name: Martin Lopez RN Position: [facility] SN RN Member Role: Primary Care Nurse Name: Teri Salazar RN Position: [facility] SN RN Member Role: Primary Care Nurse Name: Juan Carlos Chapa RN Position: [facility] RN Member Role: Primary Care Nurse Name: Tali CAMERON, Maryuri Position: [facility] Renal MD Member Role: Lifetime Consulting Physician Address: Address: [address] [facility] [place] [address]- Name: Gaye Mondragon RN Position: [facility] RN Supv Member Role: Primary Care Nurse Name: Sushma GUZMÁN, Qi Position: [facility] SN RN Member Role: Primary Care Nurse Name: Chaparro Mann MD Position: [facility] Physician - Primary Care Member Role: PCP Address: Address: [address] [place] [address]- Care Team Related Persons Name: YONATAN CHARLI Address: [address] [place] [address] Name: NANCIE WELLS Address: home [address] [place] [address]
--- OUTSIDE RECORDS SUMMARY | 2024-06-01 09:18 | XMS_ITS | Continuity of Care Document ---
Author Organization [facility] Address [address] [place] [address]- Care Team Providers Care Staff Development Manager Name Role Phone Chaparro Mann MD Primary Care Physician En[place] [facility] [place] Date(s): 06/16/21 - 07/16/21 [facility] [address] [place] [address]- [place] Allergies, Adverse Reactions, Alerts Substance Reaction [...] 11/14/20 16:22:00 EST, Route to Pharmacy Electronically, [facility]/pharmacy #[id number], 162.5, cm, 10/27/20 15:17:00 EST, [...] Active Diabetes mellitus - adult onset(Confirmed) Active 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
--- OUTSIDE RECORDS SUMMARY | 2024-06-01 09:18 | XMS_ITS | Continuity of Care Document ---
Author Organization [facility] Address [address] [place] [address]- Care Team Providers Care Supervisor Drawing Name Role Phone Chaparro Mann MD Primary Care Physician [place] [facility] [place] 02[place]/20 [facility] [address] [place] [address]- [facility] Attending Physician: Vikram Pierce Admitting Physician: AdmtrVikram Referring Physician: AdmtrVikram Allergies, Adverse Reactions, Alerts Substance Reaction Severity [...] Tablet Start Date: 04/20/19 Status: Ordered metoprolol 25 mg oral tablet 12.5 mg, 0.5, tablet, By Mouth, 2 times a day, Dispense Tartrate, # 90 tablet, Refills 3, Tot. Refills 3, Maintenance, 11/25/19 10:23:00 EDT, Route to Pharmacy Electronically, [facility]/pharmacy #[id number], 162, cm, 09/21/19 15:36:00 EST, Height, [...] Active Diabetes mellitus - adult onset(Confirmed) Active Heliarc WelderJuan Jose Villanueva(Confirmed) Active Hypothyroidism(Confirmed) Active Osteoporosis(Confirmed) Active Systolic dysfunction(Confirmed) Active PVCs (premature ventricular contractions)(Confirmed) Active Social History Social History Type Response Smoking Status Former smoker, quit more than 30 days ago entered on: 05/12/19 Sex
--- OUTSIDE RECORDS SUMMARY | 2024-06-01 09:18 | XMS_ITS | Continuity of Care Document ---
Author Organization [facility] Address [address] [place] [address]- Care Team Providers Care Signal Operator Name Role Phone Chaparro Mann MD Primary Care Physician [phone] [place] [facility] [place] - 09/04/[address] [address] Attending Physician: AdmVikram gracia Admitting Physician: Admtr, Joshua8 Referring Physician: Admtr, Ar8 Allergies, Adverse Reactions, Alerts Substance Reaction Severity Status carbamazepine double vision. vertigo Acti ve Haldol Active Immunizations Given and Recorded Vaccine Date Status Refusal Reason hepatitis B adult vaccine 09/13/22 Recorded hepatitis B adult vaccine 08/13/22 Recorded [id number] 12y+ bivalent booster vax 07/13/22 Recorded SARS-CoV-2 [...] Gm, 11 Refills, Maintenance, 03/04/23 11:27:00 EDT, [facility]/pharmacy #[id number], Partial fill upon patient request [...] mL, 11 Refills, Maintenance, 03/04/23 11:27:00 EDT, [place], [facility]/pharmacy #[id number], Partial fill upon patient request [...] 11 Refills, Maintenance, 03/04/23 11:28:00 EDT, [place], [facility]/pharmacy #[id number], Partial fill upon patient request if the prescription is for a schedule... Start Date: 03/04/23 Status: Ordered metoprolol 25 mg oral tablet, extended release 25 mg, 1, tablet, By Mouth, Daily, # 90 tablet, Refills 3, Tot. Refills 3, Maintenance, 08/15/23 11:52:00 EST, Route to Pharmacy Electronically, [facility]/pharmacy #[id number], 161, cm, 07/22/23 12:23:00 EST, Height, 46.6, [...] Diabetes mellitus - adult onset Confirmed Active Diamond Sizer-Johanny Villanueva Confirmed Active Hypothyroidism Confirmed Active Osteoporosis Confirmed Active Systolic dysfunction Confirmed Active PVCs (premature ventricular contractions) Confirmed Active Social History Social History Type Response Smoking Status Former smoker, quit more than 30 days ago; Other: quit 5 yrs ago 04/19/2015; entered on: 05/12/20 Sex Patient Care team information Care Team Personnel Name: Vera Mccauley Position: [facility] Outreach Member Role: Lifetime Consulting Physician Name: Susan Smith RN Position: [facility] ED RN W/OE and Tasks Member Role: Primary Care Nurse Name: Juan Carlos Chapa RN Position: [facility] RN Member Role: Primary Care Nurse Name: Barbara Chapa RN Position: [facility] AMB Nurse Member Role: Primary Care Nurse Name: Maryuri Cesar MD Position: [facility] Renal MD Member Role: Lifetime Consulting Physician Address: Address: [address] [place] [address] [place] [address]- Name: Gaye Mondragon RN Position: [facility] RN Supv Member Role: Primary Care Nurse Name: Qi Ordaz RN Position: [facility] SN RN Member Role: Primary Care Nurse Name: Chaparro Mann MD Position: [facility] Physician - Primary Care Member Role: PCP Address: Address: [address] [place] [address]- Care Team Related Persons Name: SUSAN TAM Address: [address] [place] [address] Name: NANCIE WELLS Address: home [address] [place] [address]
--- OUTSIDE RECORDS SUMMARY | 2024-06-01 09:18 | XMS_ITS | Continuity of Care Document ---
Author Organization [facility] Address [address] [place] [address]- Care Team Providers Care Activities Officer Name Role Phone Chaparro Mann MD Primary Care Physician [phone] [place] [facility] [place] Date(s): 02/05/24 - 03/06/24 [facility] [address] [place] [id number] Allergies, Adverse Reactions, Alerts Substance Reaction Severity Status carbamazepine double vision. vertigo Acti ve Haldol Active Immunizations Given and Recorded Vaccine Date Status Refusal Reason hepatitis B adult vaccine 09/13/22 Recorded hepatitis B adult vaccine 08/13/22 Recorded [id number] 12y+ bivalent booster vax 07/13/22 Recorded SARS-CoV-2 [...] Gm, 11 Refills, Maintenance, 03/04/23 11:27:00 EDT, [facility]/pharmacy #[id number], Partial fill upon patient [...] mL, 11 Refills, Maintenance, 03/04/23 11:27:00 EDT, [place], [facility]/pharmacy #[id number], Partial fill upon patient [...] 11 Refills, Maintenance, 03/04/23 11:28:00 EDT, [place], [facility]/pharmacy #[id number], Partial fill upon patient request if the prescription is for a schedule... Start Date: 03/04/23 Status: Ordered metoprolol 25 mg oral tablet, extended release 25 mg, 1, tablet, By Mouth, Daily, # 90 tablet, Refills 3, Tot. 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 Hypothyroidism Confirmed Active Osteoporosis Confirmed Active Systolic dysfunction Confirmed Active PVCs (premature ventricular contractions) Confirmed Active Social History Social History Type Response Smoking Status Former smoker, quit more than 30 days ago; Other: quit 5 yrs ago 04/19/2015; entered on: 05/12/20 Sex Patient Care team information Care Team Personnel Name: Garrick Vera Position: [facility] Outreach Member Role: Lifetime Consulting Physician Name: Susan Smith RN Position: [facility] ED RN W/OE and Tasks Member Role: Primary Care Nurse Name: Martin Lopez RN Position: [facility] SN RN Member Role: Primary Care Nurse Name: Teri Salazar RN Position: [facility] SN RN Member Role: Primary Care Nurse Name: Juan Carlos Chapa RN Position: [facility] RN Member Role: Primary Care Nurse Name: Maryuri Cesar MD Position: [facility] Renal MD Member Role: Lifetime Consulting Physician Address: Address: [address] [place] [address] [facility] [address] Name: Gaye Mondragon RN Position: S RN Supv Member Role: Primary Care Nurse Name: Sushma GUZMÁN, Qi Position: S SN RN Member Role: Primary Care Nurse Name: Chaparro Mann MD Position: [facility] Physician - Primary Care Member Role: PCP Address: Address: [address] [place] [address]- Care Team Related Persons Name: YONATANSUSAN Address: home [address] [place] [address] Name: NANCIE WELLS Address: home [address] [place] [address]
--- OUTSIDE RECORDS SUMMARY | 2024-06-01 09:18 | XMS_ITS | Continuity of Care Document ---
Author Organization [facility] Address [address] [place] [address]- Care Team Providers Care Cruise Staff Member Name Role Phone Chaparro Mann MD Primary Care Physician Encounter [facility] [place] Date(s): 09/21/20 - 10/21/20 [facility] [address] [place], [place] [address] Attending Physician: Vikram Pierce Admitting Physician: AdmtrVikram Referring Physician: Admtr, Ar8 Allergies, Adverse Reactions, [...] 15:10:00 EST, Route to Pharmacy Electronically, [facility]/pharmacy #[id number], Partial fill upon patient request, 159, cm, [...] 11/25/19 10:23:00 EDT, Route to Pharmacy Electronically, [facility]/pharmacy #[id number], 162, cm, 09/21/19 15:36:00 [...] Active Diabetes mellitus - adult onset(Confirmed) Active Pressure Tester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
--- OUTSIDE RECORDS SUMMARY | 2024-06-01 09:18 | XMS_ITS | Continuity of Care Document ---
Author Organization [facility] Address [address] [place] [address]- Care Team Providers Care Employment Director Name Role Phone Chaparro Mann MD Primary Care Physician [place] [facility] [place] - 04/29/24 [facility] [address] [place] [id number] Allergies, Adverse Reactions, Alerts Substance Reaction Severity Status carbamazepine double vision. vertigo Acti ve Haldol Active Immunizations Given and Recorded Vaccine Date Status Refusal Reason hepatitis B adult vaccine 09/13/22 Recorded hepatitis B adult vaccine 08/13/22 Recorded [id number] 12y+ bivalent booster vax 07/13/22 Recorded SARS-CoV-2 [...] Gm, 11 Refills, Maintenance, 03/04/23 11:27:00 EDT, [facility]/pharmacy #[id number], Partial fill upon patient [...] mL, 11 Refills, Maintenance, 03/04/23 11:27:00 EDT, [place], [facility]/pharmacy #[id number], Partial fill upon patient [...] 11 Refills, Maintenance, 03/04/23 11:28:00 EDT, [place], [facility]/pharmacy #[id number], Partial fill upon patient request if the prescription is for a schedule... Start Date: 03/04/23 Status: Ordered metoprolol 25 mg oral tablet, extended release 25 mg, 1, tablet, By Mouth, Daily, # 90 tablet, Refills 3, Tot. 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 Outreach Member Role: Lifetime Consulting Physician Name: Susan Smith RN Position: [facility] ED RN W/OE and Tasks Member Role: Primary Care Nurse Name: Martin Lopez RN Position: [facility] SN RN Member Role: Primary Care Nurse Name: Teri Salazar RN Position: [facility] SN RN Member Role: Primary Care Nurse Name: Juan Carlos Chapa RN Position: [facility] RN Member Role: Primary Care Nurse Name: Maryuri Cesar MD Position: [facility] Renal MD Member Role: Lifetime Consulting Physician Address: Address: [address] [place] [address] [facility] [address] Name: Gaye Mondragon RN Position: [facility] RN Supv Member Role: Primary Care Nurse Name: Qi Ordaz RN Position: S RN Member Role: Primary Care Nurse Name: Chaparro Mann MD Position: [facility] Physician - Primary Care Member Role: PCP Address: Address: [address] [place] [address]- Care Team Related Persons Name: SUSAN TAM Address: home [address] [place] [address] Name: NANCIE WELLS Address: [address] [place] [address]
--- OUTSIDE RECORDS SUMMARY | 2024-06-01 09:18 | XMS_ITS | Continuity of Care Document ---
Author Organization [facility] Address [address] [place] [address]- Care Team Providers Care Retail Sales Advisor Name Role Phone Chaparro Mann MD Primary Care Physician [phone] [place] [facility] [place] 08/05/21 [facility] [address] [place] [address]- Attending Physician: Otto Gamino MD Admitting Physician: [...] 16:22:00 EST, Route to Pharmacy Electronically, [facility]/pharmacy #[id number], 162.5, cm, 10/27/20 15:17:00 EST, Height, [...] Active Diabetes mellitus - adult onset(Confirmed) Active Facility AssistantJuan Jose 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
--- OUTSIDE RECORDS SUMMARY | 2024-06-01 09:18 | XMS_ITS | Continuity of Care Document ---
Author Organization [facility] Address [address] [place] [address]- Care Team Providers Care Metal Tester Name Role Phone Chaparro Mann MD Primary Care Physician [phone] Encounter [facility] [place] Date(s): 01/09/24 - 02/08/[address] [address] Attending Physician: AdmVikram gracia Admitting Physician: Admtr, Joshua8 Referring Physician: Admtr, Ar8 Allergies, Adverse Reactions, Alerts Substance Reaction Severity Status carbamazepine double vision. vertigo Acti ve Haldol Active Immunizations Given and Recorded Vaccine Date Status Refusal Reason hepatitis B adult vaccine 09/13/22 Recorded hepatitis B adult vaccine 08/13/22 Recorded [id number] 12y+ bivalent booster vax 07/13/22 Recorded SARS-CoV-2 [...] Gm, 11 Refills, Maintenance, 03/04/23 11:27:00 EDT, [facility]/pharmacy #[id number], Partial fill upon patient request if [...] mL, 11 Refills, Maintenance, 03/04/23 11:27:00 EDT, [place], [facility]/pharmacy #[id number], Partial fill upon patient request if [...] 11 Refills, Maintenance, 03/04/23 11:28:00 EDT, [place], [facility]/pharmacy #[id number], Partial fill upon patient request if the prescription is for a schedule... Start Date: 03/04/23 Status: Ordered metoprolol 25 mg oral tablet, extended release 25 mg, 1, tablet, By Mouth, Daily, # 90 tablet, Refills 3, Tot. Refills 3, Maintenance, 08/15/23 11:52:00 EST, Route to Pharmacy Electronically, [facility]/pharmacy #[id number], 161, cm, 07/22/23 12:23:00 EST, Height, 46.6, [...] Diabetes mellitus - adult onset Confirmed Active Gang Rider-Johanny Villanueva Confirmed Active Hypothyroidism Confirmed Active Osteoporosis Confirmed Active Systolic dysfunction Confirmed Active PVCs (premature ventricular contractions) Confirmed Active Social History Social History Type Response Smoking Status Former smoker, quit more than 30 days ago; Other: quit 5 yrs ago 04/19/2015; entered on: 05/12/20 Sex Patient Care team information Care Team Personnel Name: Vera Mccauley Position: [facility] Outreach Member Role: Lifetime Consulting Physician Name: Susan Smith RN Position: [facility] ED RN W/OE and Tasks Member Role: Primary Care Nurse Name: Martin Lopez RN Position: [facility] SN RN Member Role: Primary Care Nurse Name: Teri Salazar RN Position: [facility] SN RN Member Role: Primary Care Nurse Name: Juan Carlos Chapa RN Position: [facility] RN Member Role: Primary Care Nurse Name: Maryuri Cesar MD Position: [facility] Renal MD Member Role: Lifetime Consulting Physician Address: Address: [address] [place] [address] [place] [address]- Name: Gaye Mondragon RN Position: [facility] RN Supv Member Role: Primary Care Nurse Name: Qi Ordaz RN Position: [facility] SN RN Member Role: Primary Care Nurse Name: Chaparro Mann MD Position: [facility] Physician - Primary Care Member Role: PCP Address: Address: [address] [place] [address], [place] [address]- Care Team Related Persons Name: SUSAN TAM Address: home [address] [place] [address] Name: NANICE WELLS Address: [address] [place] [address]
--- OUTSIDE RECORDS SUMMARY | 2024-06-01 09:18 | XMS_ITS | Continuity of Care Document ---
Author Organization [facility] Address [address] [place] [address]- Care Team Providers Care Allied Health Instructor Name Role Phone Chaparro Mann MD Primary Care Physician [phone] Encounter [facility] [place] Date(s): 09/13/20 - 09/14/[address] [address] Discharge Disposition: A-D/C Home Attending Physician: Otto Gamino MD Admitting Physician: Otto Gamino MD Referring Physician: Otto Gamino MD Allergies, Adverse Reactions, [...] 08/16/20 15:10:00 EST, Route to Pharmacy Electronically, [facility]/pharmacy #[id number], Partial fill upon patient request, 159, cm, 07/08/20 6:37:00 EDT, Height, 49, kg... Start Date: 08/16/20 Stop Date: 02/12/21 Status: Ordered Metamucil 3.4 gm/5.2 gm oral powder for reconstitution = 3.4 Gm, By Mouth, Daily, 0 Refills, Maintenance, 03/25/20 8:37:00 EDT Start Date: 03/25/20 Status: Ordered metoprolol 25 mg oral tablet 12.5 mg, Tablet, By Mouth, 09/14/20 9:00:00 EST Start Date: 09/14/20 Stop Date: 09/14/20 Status: Completed metoprolol 25 mg oral tablet 12.5 mg, 0.5, tablet, By Mouth, 2 times a day, Dispense Tartrate, # 90 tablet, Refills 3, Tot. Refills 3, Maintenance, 11/25/19 10:23:00 EDT, Route to Pharmacy Electronically, [facility]/pharmacy #[id number], 162, cm, 09/21/19 15:36:00 EST, Height, [...] Active Diabetes mellitus - adult onset(Confirmed) Active Head Baggage PorterJuan Jose Villanueva(Confirmed) Active Hypothyroidism(Confirmed) Active Osteoporosis(Confirmed) Active Systolic dysfunction(Confirmed) Active PVCs (premature ventricular contractions)(Confirmed) Active Vital Signs Most recent to oldest [Reference Range]: 1 2 3 Height 162.5 cm (09/14/20 8:21 AM) 162.5 cm (09/14/20 4:02 AM) 162.5 cm (09/13/20 8:00 PM) Weight 49.5 kg (09/13/20 1:08 PM) 50 kg (09/13/20 6:15 AM) Oxygen Saturation [94-100 %] 96 % (09/14/20 8:21 AM) 97 % (09/14/20 4:02 AM) 97 % (09/13/20 8:00 PM) Pulse Rate [55-90 bpm] 87 bpm (09/14/20 10:05 AM) 94 bpm *H* (09/14/20 8:21 AM) 93 bpm *H* (09/14/20 4:02 AM) Blood Pressure [90-138/55-84 mm Hg] 130/64mm Hg (09/14/20 10:05 AM) 130/64mm Hg (09/14/20 8:21 AM) 128/75mm Hg (09/14/20 4:02 AM) Respiratory Rate [16-30 br/min] 18 br/min (09/14/20 8:21 AM) 16 br/min (09/14/20 4:02 AM) 16 br/min (09/13/20 8:00 PM) Temperature [96.8-100.4 DegF] 98.6 DegF (09/14/20 8:21 AM) 98.8 DegF (09/14/20 4:02 AM) 98.2 DegF (09/13/20 8:00 PM) Mode of Delivery (Oxygen) Room air (09/14/20 8:21 AM) Room air (09/14/20 4:02 AM) Room air (09/13/20 8:00 PM) Blood pressure sites Arm, right (09/14/20 8:21 AM) Arm, right (09/14/20 4:02 AM) Arm, right (09/13/20 8:00 PM) Temperature Route Temporal (09/14/20 8:21 AM) Temporal (09/14/20 4:02 AM) Temporal (09/13/20 8:00 PM) Social History Social History Type Response Smoking Status Former smoker, quit more than 30 days ago; Other: quit 5 yrs ago 04/19/2015; entered on: 05/12/20 Sex
--- OUTSIDE RECORDS SUMMARY | 2024-06-01 09:19 | XMS_ITS | Continuity of Care Document ---
Author Organization [facility] Address [address] [place] [address]- Care Team Providers Care Pole Setter Name Role Phone Chaparro Mann MD Primary Care Physician [place] [facility] [place]04[place]23 - 04/03/23 [facility] [address] [place] [id number] Allergies, Adverse Reactions, Alerts Substance Reaction Severity Status carbamazepine double vision. vertigo Acti ve Haldol Active Immunizations Given and Recorded Vaccine Date Status Refusal Reason hepatitis B adult vaccine 09/13/22 Recorded hepatitis B adult vaccine 08/13/22 Recorded [id number] 12y+ bivalent booster vax 07/13/22 Recorded SARS-CoV-2 [...] Gm, 11 Refills, Maintenance, 03/04/23 11:27:00 EDT, [facility]/pharmacy #[id number], Partial fill upon patient request [...] mL, 11 Refills, Maintenance, 03/04/23 11:27:00 EDT, [place], [facility]/pharmacy #[id number], Partial fill upon patient request [...] 11 Refills, Maintenance, 03/04/23 11:28:00 EDT, [place], [facility]/pharmacy #[id number], Partial fill upon patient request if the prescription is for a schedule... Start Date: 03/04/23 Status: Ordered metoprolol 25 mg oral tablet, extended release 25 mg, 1, tablet, By Mouth, Daily, # 90 tablet, Refills 3, Tot. 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 Hypothyroidism Confirmed Active Osteoporosis [...] Care Nurse Name: Teri Salazar RN Position: [facility] RN Member Role: Primary Care Nurse Name: Juan Carlos Chapa RN Position: [facility] RN Member Role: Primary Care Nurse Name: Barbara Chapa RN Position: [facility] AMB Nurse Member Role: Primary Care Nurse Name: Gaye Mondragon RN Position: [facility] RN Supv Member Role: Primary Care Nurse Name: Qi Ordaz RN Position: [facility] SN RN Member Role: Primary Care Nurse Name: Chaparro Mann MD Position: [facility] Physician - Primary Care Member Role: PCP Address: Address: [address] [place] [address], [place] [address]- Care Team Related Persons Name: SUSAN TAM Address: [address] [place] [address] Name: NANCIE WELLS Address: [address] [place] [address]
--- OUTSIDE RECORDS SUMMARY | 2024-06-01 09:19 | XMS_ITS | Continuity of Care Document ---
Author Organization [facility] Address [address] [place] [id number]- Care Team Providers Care Folded Cloth Taper Name Role Phone Chaparro Mann MD Primary Care Physician [phone] Encounter [facility] [place] Date(s): 11/14/20 - 12/14/20 [facility] [address] [place] [id number] Allergies, Adverse Reactions, Alerts Substance Reaction Severity [...] 08/16/20 15:10:00 EST, Route to Pharmacy Electronically, [facility]/pharmacy #[id number], Partial fill upon patient request, 159, cm, [...] 11/14/20 16:22:00 EST, Route to Pharmacy Electronically, [facility]/pharmacy #[id number], 162.5, cm, 10/27/20 15:17:00 EST, Height, 49, [...] 15:28:40 EDT Start Date: 04/20/19 Status: Ordered Ubiquinone = 100 mg, By Mouth, Daily, 0 Refills, Maintenance, 12/07/20 13:34:00 EDT, Partial fill upon patientrequest if the prescription is for a schedule II opioid drug. Start Date: 12/07/20 Status: Ordered Problem List Condition Effective Dates Status Health Status Inform ant Bipolar depression(Confirmed) Active Chronic obstructive airway disease(Confirmed) Active CKD (chronic kidney disease)(Confirmed) Active Diabetes mellitus - adult onset(Confirmed) Active Car SupervisorJuan Jose 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
--- OUTSIDE RECORDS SUMMARY | 2024-06-01 09:19 | XMS_ITS | Continuity of Care Document ---
Author Organization [facility] Address [address] [place] [id number]- Care Team Providers Care Geriatric Nursing Assistant Name Role Phone Chaparro Mann MD Primary Care Physician [place] [facility] [place] 10[place]/19 [facility] [address] [place] [address]- [facility] Attending Physician: Admtr, Joshua8 Admitting Physician: Admtr, Ar8 Referring Physician: Admtr, [...] Active Diabetes mellitus - adult onset(Confirmed) Active Senior Reservoir EngineerJuan Jose Villanueva(Confirmed) Active Hypothyroidism(Confirmed) Active Osteoporosis(Confirmed) Active Social History Social History Type Response Smoking Status Former smoker, quit more than 30 days ago entered on: 05/12/19 Sex
--- OUTSIDE RECORDS SUMMARY | 2024-06-01 09:19 | XMS_ITS | Continuity of Care Document ---
Author Organization [facility] Address [address] [place] [address]- Care Team Providers Care Sludge Control Operator Name Role Phone Chaparro Mann MD Primary Care Physician [place] [facility] [place](s): 06/05/21 - 07/05/21 [facility] [address] [place] [id number] Attending Physician: Vikram Pierce Admitting Physician: AdmVikram gracia Referring Physician: AdmtrVikram Allergies, Adverse Reactions, Alerts [...] 11/14/20 16:22:00 EST, Route to Pharmacy Electronically, [facility]/pharmacy #[id number], 162.5, cm, 10/27/20 15:17:00 EST, Height, 49, [...] Active Diabetes mellitus - adult onset(Confirmed) Active Janitor Head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
--- OUTSIDE RECORDS SUMMARY | 2024-06-01 09:19 | XMS_ITS | Continuity of Care Document ---
Author Organization [facility] Address [address] [place] [id number]- Care Team Providers Care Diesel Service Technician Name Role Phone Chaparro Mann MD Primary Care Physician Encounter [facility] [place] Date(s): 11/03/21 - 12/03/[address] [address] Attending Physician: Admtr, Vikram Admitting Physician: Admtr, Ar8 Referring Physician: Admtr, [...] a day, # 90 tablet, 3 Refills, [id number], 162.5, cm, 10/26/21 12:37:00 EST, Height, 51, [...] Active Diabetes mellitus - adult onset(Confirmed) Active Pediatric Intensive PhysicianJuan Jose 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
--- OUTSIDE RECORDS SUMMARY | 2024-06-01 09:19 | XMS_ITS | Continuity of Care Document ---
Author Organization [facility] Address [address] [place] [address] [address]ra cobos, [address] [place] [address]- Care Team Providers Care Jerker Name Role Phone Johnathan CAMERON, Chaparro West Primary Care Physician Encounter [facility] Date(s): 05/29/19 - 09/25/19 [facility] [address] [place] [address] Drive, [address] [place] [address]- [facility] Attending Physician: Ganesh Arguello MD Referring Physician: Gideon Buck Allergies, Adverse Reactions, Alerts Substance Reaction Severity [...] Active Diabetes mellitus - adult onset(Confirmed) Active 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
--- OUTSIDE RECORDS SUMMARY | 2024-06-01 09:19 | XMS_ITS | Continuity of Care Document ---
Author Organization [facility] Address [address] [place] [address]- Care Team Providers Care Bottom Cementer Name Role Phone Chaparro Mann MD Primary Care Physician [place] [facility] [place](s[place] 11/24/20 - 12/24/[address] [address] Attending Physician: Admbasil, Vikram Admitting Physician: Admtr, [...] 08/16/20 15:10:00 EST, Route to Pharmacy Electronically, [facility]/pharmacy #[id number], Partial fill upon patient request, 159, cm, [...] 11/14/20 16:22:00 EST, Route to Pharmacy Electronically, [facility]/pharmacy #[id number], 162.5, cm, 10/27/20 15:17:00 EST, Height, [...] Active Diabetes mellitus - adult onset(Confirmed) Active 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
--- OUTSIDE RECORDS SUMMARY | 2024-06-01 09:19 | XMS_ITS | Continuity of Care Document ---
Author Organization [employer] ter Address [address] [place] [address]- Care Team Providers Care Ticket Puller Name Role Phone Johnathan CAMERON, [place] Primary Care Physician [phone] [place]counter [facility] [place](s): 07/15/23 - 07/15/[address] [address] Discharge Disposition: A-D/C Home Attending Physician: Willis Benton MD Admitting Physician: Willis Benton MD Referring Physician: Willis Benton MD Allergies, Adverse Reactions, Alerts Substance Reaction Severity Status carbamazepine double vision. vertigo Acti ve Haldol Active Immunizations Given and Recorded Vaccine Date Status Refusal Reason hepatitis B adult vaccine 09/13/22 Recorded hepatitis B adult vaccine 08/13/22 Recorded [id number] 12y+ bivalent booster vax 07/13/22 Recorded SARS-CoV-2 [...] mL, 11 Refills, Maintenance, 03/04/23 11:27:00 EDT, [place], [facility]/pharmacy #[id number], Partial fill [...] 11 Refills, Maintenance, 03/04/23 11:28:00 EDT, [id number] Partial fill upon patient request if the prescription is for a schedule... Start Date: 03/04/23 Status: Ordered metoprolol 25 mg oral tablet, extended release 25 mg, 1, tablet, By Mouth, Daily, # 90 tablet, Refills 3, Tot. Refills 3, Maintenance, 10/31/22 16:31:00 EST, [id number], 161, cm, 08/15/22 8:56:00 EST, Height, [...] Diabetes mellitus - adult onset Confirmed Active Marketing Segment ManagerJuan Jose Villanueva Confirmed Active Hypothyroidism Confirmed Active Osteoporosis Confirmed Active Systolic dysfunction Confirmed Active PVCs (premature ventricular contractions) Confirmed Active Vital Signs Most recent to oldest [Reference Range]: 1 2 3 Weight 46.6 kg (07/15/23 4:10 PM) Oxygen Saturation [94-100 %] 96 % (07/15/23 7:15 PM) 96 % (07/15/23 7:00 PM) 98 % (07/15/23 6:45 PM) Pulse Rate [55-90 bpm] 78 bpm (07/15/23 5:45 PM) 79 bpm (07/15/23 5:15 PM) 73 bpm (07/15/23 4:10 PM) Blood Pressure [90-138/55-84 mm Hg] 150/68mm Hg *H* (07/15/23 6:45 PM) 150/68mm Hg *H* (07/15/23 6:30 PM) 154/65mm Hg *H* (07/15/23 6:15 PM) Respiratory Rate [16-30 br/min] 12 br/min *L* (07/15/23 7:15 PM) 12 br/min *L* (07/15/23 7:00 PM) 15 br/min *L* (07/15/23 6:45 PM) Temperature [96.8-100.4 DegF] 97.8 DegF (07/15/23 6:15 PM) 99.5 DegF (07/15/23 4:10 PM) Liters per Minute 6 L/min (07/15/23 5:45 PM) 4 L/min (07/15/23 5:30 PM) 6 L/min (07/15/23 5:19 PM) Mode of Delivery (Oxygen) Room air (07/15/23 4:10 PM) Blood pressure sites Arm, left (07/15/23 6:30 PM) Arm, left (07/15/23 6:15 PM) Arm, left (07/15/23 5:30 PM) Temperature Route Temporal (07/15/23 6:15 PM) Temporal (07/15/23 4:10 PM) Dry Weight 46.6 kg (07/15/23 4:10 PM) Weight Obtained Via Standing scale (07/15/23 4:10 PM) Dry Weight Obtained Via Standing scale (07/15/23 4:10 PM) Social History Social History Type Response Smoking Status Former smoker, quit more than 30 days ago; Other: quit 5 yrs ago 04/19/2015; entered on: 05/12/20 Sex Note * Jayleen Harrell RN: PERFORM Event Display: Discharge/Transfer Note Hospital Authored Date: [id number] Nursing Discharge Note Entered On: 07/15/2023 19:35 EST Performed On: 07/15/2023 19:35 EST by Jayleen Harrell RN Nursing Discharge Note 2 Discharge Time : 07/15/2023 19:26 EST Discharge Level of Care at Discharge : Home/Long-Term/Foster Care Patient Left Unit Via : Wheelchair Patient Accompanied Off Unit with : Responsible adult DC Instructions Provided & Signed by Pt : Yes Patient Understands D/C Instructions : Yes Patient Instructions Discharge Signed : Yes Did Pt have Specialty Bed or Wound Vac : No Jayleen Harrell RN - 07/15/2023 19:35 EST * Carmela Campos RN: PERFORM Event Display: Patient Education/Instruction Authored Date: [id number] Surgery Adult Discharge Instructions [place] [id number] Name: OZZIE RICK : 1950?? Visit: 07/15/2023 14:51?? Current Date: 07/15/2023 18:35 ?? Account: [id number]?? Surgery Discharge Instructions We would like to thank you for allowing us to assist you with your healthcare needs. The following includes patient education materials and information regarding your injury/illness. Our entire staffstrives to provide an excellent experience for our patients and their families. PLEASE ENSURE YOU FOLLOW-UP PER THE INSTRUCTIONS BELOW! ?? YOUR OPINION IS IMPORTANT TO US! Please complete the survey you may receive by mail or email. Your feedback will be used to make improvements to the healthcare experiences of our patients and their families. Surveys are administered by [employer] ?? If further treatment with your primary care physician or another doctor is recommended, it is important for you to keep the appointment. Call your primary care physician or return to the Emergency Department immediately if your condition worsens, fails to improve, or new symptoms develop. If you need to find a doctor, you can call [facility] Link for a referral at [phone] or toll free at [phone]) or log in to [email or web address].. ?? [facility], in keeping with [facility] guidance, no longer requires face masks for staff, patientsor visitors in most situations. Similiar to time spent indoors at other locations, there is the chance that you were exposed to repiratory viruses during your time with us (such as flu or COVID-19). If you develop symptoms concerning for a viral respiratory infection, please seek testing (and treatment if indicated) from your medical provider or home test kit. ?? You can view and manage your care through the patient portal or by using a health care ivonne of your choosing. [employer] is a website that allows you to securely view your medical information including your hospital discharge summary, office visit summaries, medications and follow-up visits. You can also request appointments, renew medications, and request access to your medical information using a health care ivonne of your choosing, or just ask a question. You are entitled to know the individuals who participated in your treatment. This information is available within your medical record and will be provided upon your request. You can enroll at [email or web address] or register d uring your next office visit. You have been discharged from [facility]. If you have any questions regarding these instructions after you leave, please call us and we will be happy to assist you. [facility] Your Care Team Attending Physician Willis Benton MD?? Discharging Providers Willis Benton MD Reason for Admission RETINAL DETACHMENT VITRECTOMY DS CS Primary Care Provider Chaparro Mann MD? Advance Directive Health Care Proxy on File Yes - Health Care Proxy What to do next Instructions From Your Doctor ?? Orders?? Daystay Protocol, ??07/15/23 18:23:00 EST?? Instructions from your Care Team Eye shield and patch remain intact overnight ?? Food as tolerated ?? Bring eye drops to appointment tomorrow ?? Maintain position with nose facing the floor Scheduled Follow-Up Appointments Saturday 12:15 PM EST ?? With: Ale Swain NP Where: [facility] [address] [place] [address]- Status: Pending Saturday 10:00 AM EST ?? Where: Trans[facility] [address] [facility] [address] [place] [address]- Status: Pending You Need to Schedule the Following Appointments Follow Up with??Willis Benton MD When:??In 1 day 07/16/2023 EST Where: [address] [facility], [address] [facility], [place] [address]- Discharge Medications OZZIE RICK :1950 Visit Date:07/15/2023 Medications: Please continue your medications until treatment is completed or stopped by your provider. You may resume your daily prescription medications. Discuss any questions related to medications with your provider. What How Much When Instructions Next Dose Unchanged Albuterol (Albuterol (Eqv- ProAir HFA) 90 mcg/ inh inhalation aerosol) 2 puff(s) Inhalation Every 6 hours as needed for Wheezing/Shortness of Breath Unchanged Amlodipine (amLODIPine 5 mg oral tablet) 1 tab(s) Oral Daily Unchanged Aripiprazole (Abilify 15 mg oral tablet) 1 tab(s) Oral Daily Unchanged Atorvastatin (atorvastatin 10 mg oral tablet) 1 tab(s) Oral Daily Unchanged Azelastine Nasal (azelastine 137 mcg/ inh (0.1%) nasal spray) 2 spray(s) Nares, Both Daily as needed for Other Allergies Unchanged BuPROpion (buPROPion 100 mg/ 12 hours (SR) oral tablet, extended release) 2 tab(s) Oral Daily Unchanged Calcifediol (Rayaldee 30 mcg oral capsule, extended release) 1 capsule Oral Daily at Bedtime Unchanged Carbamazepine (TEGretol XR 200 mg oral tablet, extended release) 1 tab(s) Oral Twice a day brand name only ?? Unchanged Levothyroxine (Synthroid 0.112 mg oral tablet) 1 tab(s) Oral Daily NAME BRAND ONLY ?? Unchanged Metoprolol (metoprolol 25 mg oral tablet, extended release) 1 tab(s) Oral Daily Duration: 90 Days Unchanged Multivitamin With Minerals (PreserVision AREDS 2 oral capsule) Oral Daily BID ?? Unchanged Elliston-3 Polyunsaturated Fatty Acids (Fish Oil 1200 mg oral capsule) 1 capsule Oral Daily Unchanged Risperidone (risperiDONE 1 mg oral tablet) 1.5 Milligram Oral Daily at Bedtime Unchanged Ubiquinone (elppa CoQ10) 120 Milligram Oral Daily Unchanged umeclidinium (Incruse Ellipta 62.5 mcg/ inh inhalation powder) 1 Each Inhalation Every 24 hours doses should be taken at least 24 hours apart ?? Allergies (NKA means No Known Allergies) Haldol carbamazepine??(double vision. vertigo) Education Materials Below is the list of Educational Leaflet Providered with your Discharge Instructions. Surgery Medical Daystay Surgical Overnight Discharge Instructions?? Surgery Leg Bag and Joaquin Catheter Care Discharge Instructions?? Valuables and Belongings I fully understand and agree that [facility] accepts no responsibility for all my personal property including clothing, toilet articles, radios, jewelry, dentures, hearing aids, rings, money, or any other property that is in my possession or is brought to me after admission. I understand certain valuables may be placed in a hospital safe for a short period of time. I understand that the hospital is not liable for loss or damage due to accident, fire, or other natural occurrence while said property is in the safe. I accept full responsibility for any personal property that I keep with me, and will not hold the hospital responsible in case of loss or disappearance. I acknowledge that i have been encouraged to send valuables and belongings home. ?? Review of Valuable and Belonging List: With patient Date for Pt to Sign Valuables/Belongings: 07/15/23 16:10:00 ?? Valuables & Belongings ?? Clothes Electronic devices Jewelry Monetary Items Personal devices Miscellaneous Medications (Valuables) Valuables at Bedside Jacket, Pants, Shirt, Shoes Cell phone ?? Credit cards, Money, Wallet Dentures, partial plate, Dentures, upper, Glasses, Hearing aid, left, Hearing aid, right ? Valuables Sent Home ? Valuables Sent to Security ? Other Discharge Information ? Pulmonary Rehab Status?? Pulmonary Rehab Discharge Status?? Respiratory Rate: 16 br/min ? Common Emergency Awareness Tips IS IT A STROKE? Act FAST and Check for these signs: FACE Does the face look uneven? ARM Does one arm drift down? SPEECH Does their speech sound strange? TIME Call at any sign of stroke ?? Heart Attack Signs Chest discomfort: Most heart attacks involve discomfort in the center of the chest and lasts more than a few minutes, or goes away and comes back. It can feel like uncomfortable pressure, squeezing, fullness or pain. Discomfort in upper body: Symptoms can include pain or discomfort in one or both arms, back, neck, jaw or stomach. Shortness of breath: With or without discomfort. Other signs: Breaking out in a cold sweat, nausea, or lightheaded. Remember, MINUTES DO MATTER. If you experience any of these heart attack warning signs, call to get immediate medical attention! ?? Smoking can increase your chances of developing chronic health problems and can cause harmful effects to other family members in your house. If you smoke, you are strongly encouraged to quit. Please call [facility] Link at [phone] or 9-435-909Enclarity ([phone]) or log in to [email or web address] for referrals to smoking cessation programs. ?? The National Suicide Prevention Hotline is available 01/04 if you or someone you know needs to find a reason to keep living. By calling 0-005-473-Voltaix (7238) you'll be connected to a skilled, trained counselor at a crisis center in your area. SURGERY DISCHARGE INSTRUCTIONS SIGNATURE PAGE OZZIE RICK Location:[facility] Registration Date and Time:07/15/2023 14:51 EST Primary Care Physician: Chaparro Mann MD, Attending Physician: Willis Benton MD, I OZZIE RICK, have received the above patient education materials/instructions and have verbalized understanding. If ambulance or transport services are being used I further acknowledge being given a choice of service. ?? If you need to contact me, please call me at this number: . Patient/Pipeline Engineer Name:OZZIE RICK Patient/Pipeline Engineer Signature: Relationship to Patient: Witness Name/Signature: Date: * Carmela Campos RN: PERFORM Event Display: Patient Education Leaflets Authored Date: [id number] Surgery Medical Daystay Surgical Overnight Discharge Instructions ?? 295 Medical Daystay/Surgical Overnight Discharge Instructions ? Since your coordination and judgment may be altered by medication and/or anesthesia, a responsible adult must drive you home from the hospital. ? If you have received medication for pain or sedation while under our care, you should not drive, operate machinery, drink alcohol, or sign any legal documents for 24 hours.?? You should have someone with you at home tonight. ? Remain at home the day of discharge.?? You may be up and about unless otherwise instructed by your physician. ? You may resume your daily prescription medication schedule.?? Any depressant medication should be avoided for 24 hours unless otherwise instructed by your surgeon or anesthesiologist. ? Call your physician for a follow-up appointment.? If you experience unusual or severe pain not relied by your pain medication, excessive bleedingor drainage, persistent nausea and vomiting, excessive swelling or redness, foul odor from incisionsite or fever over 100.6F, you need to call your physician. ? A follow-up phone call by a nurse will be made the day after your procedure.?? If you have stayed with us over night, you will not be receiving a follow-up phone call. ? Nausea and vomiting are a common side effect of prescription pain medication.?? We recommend that pills are not taken on an empty stomach.?? While taking any prescription pain medication you should not drive or drink alcohol. ? * Aimee Dover RN: PERFORM Event Display: Patient Education Leaflets Authored Date: [id number] Surgery Leg Bag and Joaquin Catheter Care Discharge Instructions ?? 294 Leg Bag and Care of Your Joaquin Catheter ?? To keep the area clean, you should clean the catheter and the area where it enters your body with soap and water 3 times a day and as needed. ?? Make sure the catheter is securely attached to your thigh to prevent pulling and possible irritation of the urethra and bladder. ?? If you are using a leg bag, do not attach the rubber straps too tightly.?? Remember to check the skin around your leg for irritation. ?? Make sure tubing is not kinked so urine can flow freely.?? Empty the drainage bag regularly, leg bags should be emptied when they are 1/3 to ?? full and night bags at least every 8 hours, more frequently as needed. ?? Always keep the drainage bag lower than the level of your bladder. Keep night bags off the floor atall times to prevent contamination of the urine. ?? It is usually safest to hang the drainage bag on the outside of a small wastebasket.?? This prevents people and pets from tripping on the tubing if they walk by you. ?? Clean the drain ports an connection sites of the catheter and drainage bag with alcohol wipes when changing from leg bag to night bag and from night bag to leg bag. ?? Wash drainage bags (when not in use) with warm soapy water and rinse well.?? Allow to air dry completely, then reapply caps to ends to keep the bags clean until next use.?? Bags may be rinsed with vinegar and water to help remove odor when necessary. ?? Don???t hesitate to call your doctor or the unit you were discharged from if you have any questions. ? Patient Care team information Care Team Personnel Name: Vera Mccauley Position: [facility] Outreach Member Role: Lifetime Consulting Physician Name: Charli Smith RN Position: [facility] ED RN W/OE and Tasks Member Role: Primary Care Nurse Name: Juan Carlos Chapa RN Position: [facility] RN Member Role: Primary Care Nurse Name: Barbara Chapa RN Position: [facility] AMB Nurse Member Role: Primary Care Nurse Name: Maryuri Cesar MD Position: [facility] Renal MD Member Role: Lifetime Consulting Physician Address: Address: [address] [place] [address] [facility] [place] [address]- Name: Gaye Mondragon RN Position: [facility] RAMIREZ Supv Member Role: Primary Care Nurse Name: Qi Ordaz RN Position: [facility] SN RN Member Role: Primary Care Nurse Name: Chaparro Mann MD Position: [facility] Physician - Primary Care Member Role: PCP Address: Address: [address] [place] [address], [place] [address]- Care Team Related Persons Name: CHARLI TAM Address: home [address] [place] [address] Name: NANCIE WELLS Address: home [address] [place] [address]
--- OUTSIDE RECORDS SUMMARY | 2024-06-01 09:19 | XMS_ITS | Continuity of Care Document ---
Author Organization [facility] Address [address] [place] [address]- Care Team Providers Care Weight Reduction Specialist Name Role Phone Chaparro Mann MD Primary Care Physician [place] [facility] [place]20 [facility] [address] [place] [address]- 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
--- OUTSIDE RECORDS SUMMARY | 2024-06-01 09:19 | XMS_ITS | Continuity of Care Document ---
Author Organization [facility] Address [address] [place] [address]- Care Team Providers Care Piping Blocker Name Role Phone Chaparro Mann MD Primary Care Physician [place] [facility] [place] - 11/07/22 [facility] [address] [place] [address]- [place] Allergies, Adverse Reactions, Alerts Substance Reaction Severity Status carbamazepine double vision. vertigo Acti ve Haldol Active Immunizations Given and Recorded Vaccine Date Status Refusal Reason hepatitis B adult vaccine 09/13/22 Recorded hepatitis B adult vaccine 08/13/22 Recorded [id number] 12y+ bivalent booster vax 07/13/22 Recorded SARS-CoV-2 [...] 16:31:00 EST, Route to Pharmacy Electronically, [id number], 161, cm, 08/15/22 8:56:00 EST, Height, [...] opioid drug. Start Date: 03/06/22 Status: Ordered trospium chloride 20 mg oral tablet 1 tablet = 20 mg, By Mouth, Daily, # 30 tablet, 0 Refills, Maintenance, 08/14/22 14:55:00 EST, Tablet, Partial fill upon patient request if the prescription is for a schedule II opioid drug. 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 Worker-Johanny Villanueva Confirmed Active Hypothyroidism Confirmed Active Osteoporosis Confirmed Active Systolic dysfunction Confirmed Active Underweight Confirmed Active PVCs (premature ventricular contractions) Confirmed Active Social History Social History Type Response Smoking Status Former smoker, quit more than 30 days ago; Other: quit 5 yrs ago 04/19/2015; entered on: 05/12/20 Sex Patient Care team information Care Team Personnel Name: Vera Mccauley Position: [facility] Outreach Member Role: Lifetime Consulting Physician Name: Susan Smith RN Position: [facility] ED RN W/OE and Tasks Member Role: Primary Care Nurse Name: Martin Lopez RN Position: [facility] RN Supv Member Role: Primary Care Nurse Name: Teri Salazar RN Position: [facility] RN Member Role: Primary Care Nurse Name: Juan Carlos Chapa RN Position: [facility] RN Member Role: Primary Care Nurse Name: Barbara Chapa RN Position: [facility] RN Member Role: Primary Care Nurse Name: Gaye Mondragon RN Position: [facility] RN Supv Member Role: Primary Care Nurse Name: Qi Ordaz RN Position: [facility] RN Member Role: Primary Care Nurse Name: Chaparro Mann MD Position: [facility] Physician (General Medicine) Member Role: PCP Address: Address: [address] [place] [address]- Care Team Related Persons Name: SUSAN TAM Address: home [address] [place] [address] Name: NANCIE WELLS Address: home [address] [place] [address]
--- OUTSIDE RECORDS SUMMARY | 2024-06-01 09:19 | XMS_ITS | Continuity of Care Document ---
Author Organization [facility] Address [address] [address]- Care Team Providers Care Spreader Box Operator Name Role Phone Chaparro Mann MD Primary Care Physician Encounter [facility] Date(s): 03/23/22 - 04/22/22 [facility] [address] [facility] [address] [place] [id number] Attending Physician: Admtr, Ar8 Admitting Physician: Admtr, Ar8 Referring Physician: Admtr, Ar8 Allergies, Adverse Reactions, Alerts Substance Reaction Severity Status carbamazepine double vision. vertigo Acti ve Haldol Active Immunizations Given and Recorded Vaccine Date Status Refusal Reason SARS-CoV-2 (COVID-19) mRNA BNT-162b2 vac 12/27/21 Recorded [...] EDT, Powder Start Date: 04/18/19 Status: Ordered Metoprolol Tartrate 25 mg oral tablet 0.5 tablet, By Mouth, 2 times a day, # 90 tablet, 3 Refills, [id number], 162.5, cm, 10/26/21 12:37:00 EST, Height, 51, [...] opioid drug. Start Date: 03/23/22 Status: Ordered Rayaldee 30 mcg oral capsule, [...] 1 tablet = 200 mg, By Mouth, 3 times a day, pt takes 1 tab in the am ,1 tab in the after noon and 2tabs at night., # 60 tablet, 5 Refills, Maintenance, 03/06/22 12:05:00 EDT, ER Tablet, Partial fillupon patient request if the prescription is for a s... Start Date: 03/06/22 Status: Ordered Problem List Condition Effective Dates Status Health Status Inform ant Bipolar depression(Confirmed) Active Chronic obstructive airway disease(Confirmed) Active CKD (chronic kidney disease)(Confirmed) Active Diabetes mellitus - adult onset(Confirmed) Active Community Engagement LeaderJuan Jose 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
--- OUTSIDE RECORDS SUMMARY | 2024-06-01 09:19 | XMS_ITS | Continuity of Care Document ---
Author Organization [facility] Address [address] [place] [address]- Care Team Providers Care Camera Maker Name Role Phone Chaparro Mann MD Primary Care Physician Encounter [facility] Date(s): 11/10/19 - 11/20/19 [facility] [address] [place] [address]- [facility] Attending Physician: Vikram Pierce Admitting [...] tablet, Refills 3, Tot. Refills 3, Maintenance, 11/11/19 14:02:00 EST, Route to Pharmacy Electronically, [facility]/pharmacy #[id number], 162, cm, 09/21/19 15:36:00 EST, Height, 48.8, kg, 04/24... 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
--- OUTSIDE RECORDS SUMMARY | 2024-06-01 09:19 | XMS_ITS | Continuity of Care Document ---
Author Organization [facility] Address [address] [place] [address]- Care Team Providers Care Digital Imaging Specialist Name Role Phone Johnathan CAMERON, Chaparro West Primary Care Physician [phone] Encounter [facility] Date(s): 02/07/21 - 03/09/21 [facility] [address] [place] [id number] Allergies, Adverse Reactions, Alerts Substance [...] 11/14/20 16:22:00 EST, Route to Pharmacy Electronically, [facility]/pharmacy #[id number], 162.5, cm, 10/27/20 15:17:00 EST, Height, [...] Active Diabetes mellitus - adult onset(Confirmed) Active 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
--- OUTSIDE RECORDS SUMMARY | 2024-06-01 09:19 | XMS_ITS | Continuity of Care Document ---
Author Organization [facility] Address [address] [place] [address]- Care Team Providers Care Manager Web Name Role Phone Chaparro Mann MD Primary Care Physician En[place] [facility] Date(s): 04/14/20 - 05/14/20 [facility] [address] [place] [address]- [facility] Allergies, Adverse Reactions, Alerts Substance Reaction [...] 11/25/19 10:23:00 EDT, Route to Pharmacy Electronically, 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
--- OUTSIDE RECORDS SUMMARY | 2024-06-01 09:19 | XMS_ITS | Continuity of Care Document ---
Author Organization [facility] ter Address [address] [place] [address]- Care Team Providers Care Automobile Mechanic Supervisor Name Role Phone Chaparro Mann MD Primary Care Physician En[place] [facility] [place] Date(s): 07/28/21 - 07/29/[address] [address] Discharge Disposition: A-D/C Home Attending Physician: Otto [...] oral tablet 12.5 mg, Tablet, By Mouth, 07/29/21 9:00:00 EST Start Date: 07/29/21 Stop Date: 07/29/21 Status: Completed metoprolol 25 mg oral tablet 12.5 mg, 0.5, tablet, By Mouth, 2 times a day, Dispense Tartrate, # 90 tablet, Refills 3, Tot. Refills 3, Maintenance, 11/14/20 16:22:00 EST, Route to Pharmacy Electronically, 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 Hypothyroidism(Confirmed) Active Osteoporosis(Confirmed) Active Systolic dysfunction(Confirmed) Active PVCs (premature ventricular contractions)(Confirmed) Active Vital Signs Most recent to oldest [Reference Range]: 1 2 3 Height 162.5 cm (07/29/21 8:13 AM) 162.5 cm (07/29/21 3:40 AM) 162.5 cm (07/28/21 9:18 PM) Weight 51 kg (07/28/21 7:20 AM) Oxygen Saturation [94-100 %] 97 % (07/29/21 8:13 AM) 96 % (07/29/21 3:40 AM) 96 % (07/28/21 9:18 PM) Pulse Rate [55-90 bpm] 97 bpm *H* (07/29/21 8:49 AM) 97 bpm *H* (07/29/21 8:13 AM) 88 bpm (07/29/21 3:40 AM) Blood Pressure [90-138/55-84 mm Hg] 151/77mm Hg *H* (07/29/21 8:49 AM) 151/77mm Hg *H* (07/29/21 8:13 AM) 141/65mm Hg *H* (07/29/21 3:40 AM) Respiratory Rate [16-30 br/min] 18 br/min (07/29/21 3:40 AM) 18 br/min (07/28/21 9:18 PM) 20 br/min (07/28/21 4:02 PM) Temperature [96.8-100.4 DegF] 98.8 DegF (07/29/21 8:13 AM) 98.6 DegF (07/29/21 3:40 AM) 99.3 DegF (07/28/21 9:18 PM) Mode of Delivery (Oxygen) Room air (07/29/21 8:13 AM) Room air (07/29/21 3:40 AM) Room air (07/28/21 9:18 PM) Blood pressure sites Arm, right (07/29/21 8:13 AM) Arm, right (07/29/21 3:40 AM) Arm, right (07/28/21 9:18 PM) Temperature Route Oral (07/29/21 8:13 AM) Oral (07/29/21 3:40 AM) Oral (07/28/21 9:18 PM) Dry Weight 51 kg (07/28/21 7:20 AM) Social History Social History Type Response Smoking Status Former smoker, quit more than 30 days ago; Other: quit 5 yrs ago 04/19/2015; entered on: 05/12/20 Sex
--- OUTSIDE RECORDS SUMMARY | 2024-06-01 09:19 | XMS_ITS | Continuity of Care Document ---
Author Organization [facility] Address [address] [place] [address]- Care Team Providers Care Crematory Attendant Name Role Phone Chaparro Mann MD Primary Care Physician [place] [facility] [place] 07/05/21 [facility] [address] [place] [id number] Attending Physician: Benson KERN, Edith Avila Admitting Physician: Benson KERN, Edith Avila Referring Physician: Chaparro Mann MD Allergies, Adverse [...] 16:22:00 EST, Route to Pharmacy Electronically, [facility]/pharmacy #[id number], 162.5, cm, 10/27/20 15:17:00 EST, [...] Active Diabetes mellitus - adult onset(Confirmed) Active 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
--- OUTSIDE RECORDS SUMMARY | 2024-06-01 09:19 | XMS_ITS | Continuity of Care Document ---
Author Organization [facility] Address [address] [place] [address]- Care Team Providers Care Fitness Manager Name Role Phone Chaparro Mann MD Primary Care Physician Encounter [facility] Date(s): 01/20/21 - 02/19/21 [facility] [address] [place] [id number] Attending Physician: Vikram Pierce Admitting Physician: AdmVikram [...] 11/14/20 16:22:00 EST, Route to Pharmacy Electronically, [facility]/pharmacy #[id number], 162.5, cm, 10/27/20 15:17:00 EST, Height, 49, [...] Active Diabetes mellitus - adult onset(Confirmed) Active 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
--- OUTSIDE RECORDS SUMMARY | 2024-06-01 09:19 | XMS_ITS | Continuity of Care Document ---
Author Organization [facility] Address [address] [place] [address]- Care Team Providers Care Assessment Manager Name Role Phone Chaparro Mann MD Primary Care Physician [place] [facility] [place] Date(s): 03/20/23 - 04/19/[address] [address] Attending Physician: AdmVikram gracia Admitting Physician: Admtr, Ar8 Referring Physician: Admtr, Ar8 Allergies, Adverse Reactions, Alerts Substance Reaction Severity Status carbamazepine double vision. vertigo Acti ve Haldol Active Immunizations Given and Recorded Vaccine Date Status Refusal Reason hepatitis B adult vaccine 09/13/22 Recorded hepatitis B adult vaccine 08/13/22 Recorded [id number] 12y+ bivalent booster vax 07/13/22 Recorded SARS-CoV-2 [...] Gm, 11 Refills, Maintenance, 03/04/23 11:27:00 EDT, [facility]/pharmacy #[id number], Partial fill upon [...] mL, 11 Refills, Maintenance, 03/04/23 11:27:00 EDT, [place], [facility]/pharmacy #[id number], Partial fill upon [...] 11 Refills, Maintenance, 03/04/23 11:28:00 EDT, [place], [facility]/pharmacy #[id number], Partial fill upon patient request if the prescription is for a schedule... Start Date: 03/04/23 Status: Ordered metoprolol 25 mg oral tablet, extended release 25 mg, 1, tablet, By Mouth, Daily, # 90 tablet, Refills 3, Tot. Refills 3, Maintenance, 10/31/22 16:31:00 EST, [id number], 161, cm, 08/15/22 8:56:00 EST, Height, [...] Diabetes mellitus - adult onset Confirmed Active Access Assoc-Johanny Villanueva Confirmed Active Hypothyroidism Confirmed Active Osteoporosis Confirmed Active Systolic dysfunction Confirmed Active PVCs (premature ventricular contractions) Confirmed Active Social History Social History Type Response Smoking Status Former smoker, quit more than 30 days ago; Other: quit 5 yrs ago 04/19/2015; entered on: 05/12/20 Sex Patient Care team information Care Team Personnel Name: Garrick Vera Position: [facility] Outreach Member Role: Lifetime Consulting Physician Name: Susan Smith RN Position: [facility] ED RN W/OE and Tasks Member Role: Primary Care Nurse Name: Teri Salazar RN Position: [facility] RN Member Role: Primary Care Nurse Name: Juan Carlos Chapa RN Position: [facility] RN Member Role: Primary Care Nurse Name: Barbara Chapa RN Position: [facility] RN Member Role: Primary Care Nurse Name: Gaye Mondragon RN Position: [facility] RN Supv Member Role: Primary Care Nurse Name: Qi Ordaz RN Position: [facility] SN RN Member Role: Primary Care Nurse Name: Chaparro Mann MD Position: [facility] Physician - Primary Care Member Role: PCP Address: Address: [address] [place] [address], [place] [address]- Care Team Related Persons Name: SUSAN TAM Address: [address] [place] [address] Name: NANCIE WELLS Address: home [address] [place] [address]
--- OUTSIDE RECORDS SUMMARY | 2024-06-01 09:19 | XMS_ITS | Continuity of Care Document ---
Author Organization [facility] Address [address] [place] [address]- Care Team Providers Care Field Marketing Lead Name Role Phone Chaparro Mann MD Primary Care Physician [phone] Encounter [facility] Date(s): 06/15/20 - 07/15/20 [facility] [address] [place] [id number] Allergies, Adverse Reactions, Alerts Substance Reaction [...] 11/25/19 10:23:00 EDT, [id number], 162, cm, 09/21/19 15:36:00 EST, [...] Active Diabetes mellitus - adult onset(Confirmed) Active 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
--- OUTSIDE RECORDS SUMMARY | 2024-06-01 09:19 | XMS_ITS | Continuity of Care Document ---
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
--- OUTSIDE RECORDS SUMMARY | 2024-06-01 09:19 | XMS_ITS | Continuity of Care Document ---
Author Organization [facility] Address [address] [place] [id number]- Care Team Providers Care Experience Designer Name Role Phone Chaparro Mann MD Primary Care Physician Encounter [facility] Date(s): 02/14/24 - 02/21/24 [facility] [address] [place] [address]- Attending Physician: Daisy Ramos Referring Physician: Chaparro Mann MD Allergies, Adverse Reactions, Alerts Substance Reaction Severity Status carbamazepine double vision. vertigo Acti ve Haldol Active Immunizations Given and Recorded Vaccine Date Status Refusal Reason hepatitis B adult vaccine 09/13/22 Recorded hepatitis B adult vaccine 08/13/22 Recorded [id number] 12y+ bivalent booster vax 07/13/22 Recorded SARS-CoV-2 [...] Gm, 11 Refills, Maintenance, 03/04/23 11:27:00 EDT, [facility]/pharmacy #[id number], Partial fill upon [...] mL, 11 Refills, Maintenance, 03/04/23 11:27:00 EDT, [place], [facility]/pharmacy #[id number], Partial fill upon [...] 11 Refills, Maintenance, 03/04/23 11:28:00 EDT, [place], [facility]/pharmacy #[id number], Partial fill upon patient request if the prescription is for a schedule... Start Date: 03/04/23 Status: Ordered metoprolol 25 mg oral tablet, extended release 25 mg, 1, tablet, By Mouth, Daily, # 90 tablet, Refills 3, Tot. Refills 3, Maintenance, 08/15/23 11:52:00 EST, Route to Pharmacy Electronically, [facility]/pharmacy #[id number], 161, cm, 07/22/23 [...] Diabetes mellitus - adult onset Confirmed Active Vice President Medical AffairsJuan Jose Villanueva Confirmed Active Hypothyroidism Confirmed Active Osteoporosis Confirmed Active Systolic dysfunction Confirmed Active Underweight Confirmed Active PVCs (premature ventricular contractions) Confirmed Active Vital Signs Most recent to oldest [Reference Range]: 1 2 Height 161 cm (02/14/24 12:57 PM) 161 cm (02/14/24 12:23 PM) Weight 47.5 kg (02/14/24 12:23 PM) Oxygen Saturation [94-100 %] 95 % (02/14/24 12:23 PM) Pulse Rate [55-90 bpm] 71 bpm (02/14/24 12:23 PM) Body Mass Index [18.5-24.99 kg/m2] 18.32 kg/m2 *L* (02/14/24 12:23 PM) Blood Pressure [90-138/55-84 mm Hg] 128/ 70mm Hg (02/14/24 12:57 PM) 136/70mm Hg (02/14/24 12:23 PM) Mode of Delivery (Oxygen) Room air (02/14/24 12:23 PM) Blood pressure sites Arm, left (02/14/24 12:23 PM) Weight Obtained Via Bed scale (02/14/24 12:23 PM) Social History Social History Type Response Smoking Status Former smoker, quit more than 30 days ago; Other: quit 5 yrs ago 04/19/2015; entered on: 05/12/20 Sex Cardiology Outpatient Note * Delio COFFMAN, Daisy Berrios: PERFORM Event Display: Cardiology Note Office Authored Date: [id number] Patient: ??OZZIE RICK ? Age:??73 Years?Sex:??Female?:??1950?? Patient Hx Cardiology Shared Clinical Summary PVC ablation July 2021 Dr. 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 Has shortness of breath, unchanged. Denies chest pain, palpitations, orthopnea??PND or lower extremity edema. Exercises twice a week, senior boot camp.?? Blood pressures at home??consistently??110s to 120s Review of Systems Pertinent positives in HPI Physical Exam Vitals & Measurements HR:??71??(Peripheral)?? BP:??128/70?? SpO2:??95%?? HT:??161??cm?? WT:??47.5??kg?? BMI:??18.32?? Weight lb/oz: 104 lb 11 oz GENERAL: ??Alert and oriented x3, no acute distress.?? HEENT: no pallor or scleral icterus NECK: ??Supple. No JVD, HJR, carotid bruits. ??Normal carotid upstrokes.?? LUNGS: Clear to auscultation bilaterally. ??No crackles, wheezing, rhonchi. ?? HEART: RRR. ??No murmurs, rubs, or gallops.?? ABDOMEN: Positive bowel sounds, soft, nontender, nondistended. ? EXTREMITIES: ??No cyanosis, clubbing or edema. ??Pulses were symmetric. ?? Assessment/Plan 1. ??Chronic obstructive airway disease primarily due to tobacco use 2. ??Advanced CKD (chronic kidney disease, followed by??Dr. Terry.?? 3. ??PVCs (premature ventricular contractions) s/p ablation 4. ??Systolic dysfunction recent echo revealed improved but still reduced LVEF 35-40% ?? She has no cardiac complaints. ??She is euvolemic on exam today. ??She continues to see renal, withplan for potential renal transplant in the future.? Plan continue current regimen follow up with me in 6 months, Dr. Garza??next available??which is likely??December 2024 Allergies Haldol carbamazepine??(double vision. vertigo) Home Medications Abilify 15 mg oral tablet, 15 mg= 1 tablet, By Mouth, Daily Albuterol (Eqv-ProAir HFA) 90 mcg/inh inhalation aerosol, 2 puffs, Inhalation, Every 6 hours, PRN, 11 refills Albuterol (Eqv-Ventolin HFA) 90 mcg/inh inhalation aerosol, 2 puffs, Inhalation, Every 6 hours amLODIPine 5 mg oral tablet, 5 mg= 1 tablet, By Mouth, Daily atorvastatin 10 mg oral tablet, 10 mg= 1 tablet, By Mouth, Daily azelastine 137 mcg/inh (0.1%) nasal spray, 2 sprays, Nares, Both, Daily, PRN, 11 refills buPROPion 100 mg/12 hours (SR) oral tablet, extended release, 200 mg= 2 tablet, By Mouth, Daily CoQ10 100 mg oral capsule, 100 mg= 1 capsule, By Mouth, Daily elppa CoQ10, 120 mg, By Mouth, Daily Fish Oil 1200 mg oral capsule, 1200 mg= 1 capsule, By Mouth, Daily Incruse Ellipta 62.5 mcg/inh inhalation powder, 62.5 mcg= 1 each, Inhalation, Every 24 hours, 11 refills metoprolol 25 mg oral tablet, extended release, 25 mg= 1 tablet, By Mouth, Daily, 3 refills PreserVision AREDS 2 oral capsule, By Mouth, Daily Rayaldee 30 mcg oral capsule, extended release, 30 mcg= 1 capsule, By Mouth, Daily at bedtime risperiDONE 1 mg oral tablet, 1 mg= 1 tablet, By Mouth, 2 times a day risperiDONE 1 mg oral tablet, 1.5 mg, By Mouth, Daily at bedtime Synthroid 0.112 mg oral tablet, 112 mcg= 1 tablet, By Mouth, Daily TEGretol XR 200 mg oral tablet, extended release, 200 mg= 1 tablet, By Mouth, 2 times a day Trelegy Ellipta, Inhalation, Daily Lab Results Cardiology Labs WBC: 7 k/mm3 (07/29/23) RBC:??4.04 m/mm3??Low (07/29/23) Hgb: 12.6 Gm/dL (07/29/23) Hct: 40 % (07/29/23) MCV: 99 femtoliters (07/29/23) MCH: 31.2 pg (07/29/23) MCHC:??31.5 g/dL??Low (07/29/23) Platelet Count: 172 k/mm3 (07/29/23) RDW-SD:??48.8 femtoliters??High (07/29/23) Nucleated RBC (Automated): 0 #/100 WBC'S (07/29/23) Abs. Neut: 5 k/mm3 (07/29/23) Abs. Lymph: 1.1 k/mm3 (07/29/23) Abs. Bowman: 0.6 k/mm3 (07/29/23) Abs. Eo: 0.2 k/mm3 (07/29/23) Abs. Baso: 0.1 k/mm3 (07/29/23) Neut %: 72 % (07/29/23) Bowman %: 8.4 % (07/29/23) Eos %: 2.3 % (07/29/23) Baso %: 1 % (07/29/23) Imm Gran: 0.3 % (07/29/23) Abs. Imm Gran: 0 k/mm3 (07/29/23) INR: 1 (04/18/23) Protime (PT): 11 seconds (04/18/23) APTT: 26.5 seconds (04/18/23) Sodium: 143 mmol/L (10/29/23) Potassium: 4.7 mmol/L (10/29/23) Chloride:??108 mmol/L??High (10/29/23) Bicarbonate Level: 23 mmol/L (10/29/23) Glucose Level: 90 mg/dL (10/29/23) Hemoglobin A1C (Monitoring):??5.7 %??High (07/29/23) BUN:??46 mg/dL??High (10/29/23) Creatinine-Blood:??2.4 mg/dL??High (10/29/23) Calcium: 8.9 mg/dL (10/29/23) ALT (SGPT): 18 units/L (07/29/23) Cholesterol: 153 mg/dL (07/29/23) Triglycerides: 79 mg/dL (07/29/23) HDL Cholesterol: 88 mg/dL (07/29/23) LDL Cholesterol: 49 mg/dL (07/29/23) Non HDL Cholesterol: 65 mg/dL (07/29/23) TSH: 0.7 uIU/mL (07/29/23) Diagnostic Impression MRI MRI Cardiac W+W/O Contrast ?? 12:41:55 IMPRESSION: ?? Normal size left ventricle with global hypokinesia, severe hypokinesis at the apex. No abnormal enhancement to suggest cardiomyopathy or infarct. The ejection fraction cannot be reliably assessed due to arrhythmia artifact. The LVEF is approximately between 20-30%. ?? Normal size right ventricle with global hypokinesia. RVEF is approximately between 30-40%. ? WSN: [id number] ? Ordering Physician: Joann Raines ?? Signed By: Marisabel Brice MD Stress Test NM Myocard Perf SPECT Multi ?? 11:30:00 Summary 1. Myocardial perfusion imaging is abnormal showing mild intensity fixed perfusion defects in the distal anteroseptal wall and apex, suggestive of scar. No reversible perfusion defect after Regadenoson infusion. 2. LV function is borderline with an E.F. of 49% at rest and 55% after IV administration of Regadenoson with mild global hypokinesis, more pronounced in the distal anteroseptal wall. 3. EKG portion of the stress test is reported separately. ?? Signatures _ _ ?? Signed By: Holden Mcneil MD Echo Echocardiogram - Complete ?? 11:19:38 Summary The left ventricular size is normal. Left ventricular wall thickness is normal. Apical images are off axis. The LV systolic function is mildly to moderately reduced. The left ventricular ejection fraction is 35-40%. There is moderate global hypokinesis with regional variation. Grade I, mild diastolic dysfunction with impaired LV relaxation. The aortic valve is trileaflet. There is no aortic stenosis. There is mild aortic insufficiency. The mitral valve appears mildly thickened. There is mild prolapse of the anterior leaflet. There is mild to moderate mitral regurgitation. The mitral regurgitation jet is posteriorly directed. The right ventricle is normal in size and function. There is no significant pericardial effusion. ?? Comparison Comparison is made to the study of November 28, 2021. Images not available. ?? Signature ?? Signed By: Giuliana Fuentes MD Problem List/Past Medical History Ongoing Bipolar depression Chronic obstructive airway disease CKD (chronic kidney disease) Diabetes mellitus - adult onset Vice President Medical Affairs-Johanny Villanueva Hypothyroidism Osteoporosis PVCs (premature ventricular contractions) Systolic dysfunction Underweight Procedure/Surgical History Mammogram: 05/23/06 Subdural hematoma Eye care Social History Alcohol Use: Current. Frequency: 1-2 times per year. Employment/School Status: Retired. Exercise Other: rehab. Regular exercise: Yes. Exercise frequency: 1-2 times/week. Home/Environment Living situation: Home/Independent. Lives with: friend. Nutrition/Health Caffeine intake amount: 1 cup of coffee. Feels highly stressed: No. Substance Abuse Use: Never. Tobacco Use: Former smoker, quit more than 30 days ago. Other: quit 5 yrs ago 04/19/2015. Family History Mother: Cancer of breast; Crohn's disease Father: Ulcer Note * Kierra Saez: PERFORM Event Display: Patient Education/Instruction Authored Date: [id number] Ambulatory Adult Visit Summary [facility] [address] [place] [address] Name: OZZIE RICK : 1950?? Visit: 02/14/2024 11:52?? Ambulatory Visit Instructions ?? Your Care Team Primary Care Provider Johnathan CAMERON, Chaparro West? This Visit Provider Delio COFFMAN, Daisy Berrios Vitals Signs Pulse Rate: 71 bpm Height: 161 cm Systolic Blood Pressure: 128 mm Hg Weight: 47.5 kg Diastolic Blood Pressure: 70 mm Hg Body Mass Index:??18.32 kg/m2??Low Oxygen Saturation: 95 % Body surface area: 1.46 What to do next Scheduled Follow-Up Appointments 2023 10:00 AM EDT ?? Where: [facility] [address] [address]- Status: Pending Saturday 9:00 AM EDT ?? With: Shankar Carpenter MD, Wilman Aguilera Where: [facility] [address] [place] [address]- Status: Pending Medications The list below reflects the information in our records and provided by you today along with any changes made during this visit. Please continue your medications until treatment is completed or stopped by your provider. If this is different from the information you have or there are other questions,please contact the prescribing provider. What How Much When Instructions Unchanged Amlodipine (amLODIPine 5 mg oral tablet) 1 tab(s) Oral Daily Unchanged Atorvastatin (atorvastatin 10 mg oral tablet) 1 tab(s) Oral Daily Unchanged Metoprolol (metoprolol 25 mg oral tablet, extended release) 1 tab(s) Oral Daily Duration: 90 Days Unchanged Albuterol (Albuterol (Eqv-ProAir HFA) 90 mcg/ inh inhalation aerosol) 2 puff(s) Inhalation Every 6 hours as needed for Wheezing/Shortness of Breath Contact prescribing physician if questions or concerns ?? Unchanged Albuterol (Albuterol (Eqv-Ventolin HFA) 90 mcg/ inh inhalation aerosol) 2 puff(s) Inhalation Every 6 hours Contact prescribing physician if questions or concerns ?? Unchanged Aripiprazole (Abilify 15 mg oral tablet) 1 tab(s) Oral Daily Contact prescribing physician if questions or concerns ?? Unchanged Azelastine Nasal (azelastine 137 mcg/ inh (0.1%) nasal spray) 2 spray(s) Nares, Both Daily as needed for Other Allergies Contact prescribing physician if questions or concerns ?? Unchanged BuPROpion (buPROPion 100 mg/ 12 hours (SR) oral tablet, extended release) 2 tab(s) Oral Daily Contact prescribing physician if questions or concerns ?? Unchanged Calcifediol (Rayaldee 30 mcg oral capsule, extended release) 1 capsule Oral Daily at Bedtime Contact prescribing physician if questions or concerns ?? Unchanged Carbamazepine (TEGretol XR 200 mg oral tablet, extended release) 1 tab(s) Oral Twice a day brand name only Contact prescribing physician if questions or concerns ?? Unchanged fluticasone/ umeclidinium/ vilanterol (Trelegy Ellipta) Inhalation Daily Contact prescribing physician if questions or concerns ?? Unchanged Levothyroxine (Synthroid 0.112 mg oral tablet) 1 tab(s) Oral Daily NAME BRAND ONLY Contact prescribing physician if questions or concerns ?? Unchanged Multivitamin With Minerals (PreserVision AREDS 2 oral capsule) Oral Daily BID Contact prescribing physician if questions or concerns ?? Unchanged [place]-3 Polyunsaturated Fatty Acids (Fish Oil 1200 mg oral capsule) 1 capsule Oral Daily Contact prescribing physician if questions or concerns ?? Unchanged Risperidone (risperiDONE 1 mg oral tablet) 1 tab(s) Oral Twice a day Contact prescribing physician if questions or concerns ?? Unchanged Risperidone (risperiDONE 1 mg oral tablet) 1.5 Milligram Oral Daily at Bedtime Contact prescribing physician if questions or concerns ?? Unchanged Ubiquinone (CoQ10 100 mg oral capsule) 1 capsule Oral Daily Contact prescribing physician if questions or concerns ?? Unchanged Ubiquinone (elppa CoQ10) 120 Milligram Oral Daily Contact prescribing physician if questions or concerns ?? Unchanged umeclidinium (Incruse Ellipta 62.5 mcg/ inh inhalation powder) 1 Each Inhalation Every 24 hours doses should be taken at least 24 hours apart Contact prescribing physician if questions or concerns ?? Medications and Immunizations Administered Medications Given During Visit No medications given during this visit.?? Allergies (NKA means No Known Allergies) Haldol carbamazepine??(double vision. vertigo) Common Emergency Awareness Tips IS IT A [...] are strongly encouraged to quit. Please call [employer] [facility] at [phone] or [phone] ([phone]) or log in to [email or web address] for referrals to smoking cessation programs. ?? The National Suicide Prevention Hotline is available 01/04 if you or someone you know needs to find a reason to keep living. By calling 0-905-382-Genasys (5656) you'll be connected to a skilled, trained counselor at a crisis center in your area. [facility] Portal You can view and manage your care through the patient portal or by using a health care ivonne of your choosing. [employer] is a website that allows you to securely view your medical information including your hospital discharge summary, office visit summaries, medications and follow-up visits. You can also request appointments, renew medications, and request access to your medical information using a health care ivonne of your choosing, or just ask a question. You can enroll at [email or web address] or register during your next office visit. [facility], in keeping with [facility] guidance, no longer requires face masks [...] medical provider or home test kit. ?? Disclaimer: The information provided is of a general nature and is intended to be used in conjunction with the recommendations and advice of your health care practitioner. Every effort has been made to ensure that the information provided is accurate and complete at the time it is provided to you however, as your needs change, or, as new information becomes available, different or additional instructions may be required. ?? If you have questions, please consult with your primary care provider or pharmacist, as appropriate. This information is not intended to serve as substitution for assessment and evaluation by a qualified health care provider. If you do not have a primary care provider, you may find a [facility] provider by calling [facility] at [phone]. * Kierra Saez: PERFORM Event Display: Patient Education/Instruction Authored Date: [id number] Ambulatory Adult Visit Summary [facility] [address] [place] [address] [address] [place] [address] Name: OZZIE RICK : 1950?? Visit: 02/14/2024 11:52?? Ambulatory Visit Instructions ?? Your Care Team Primary Care Provider Johnathan CAMERON, Chaparro West? This Visit Provider Daisy Ramos Vitals Signs Pulse Rate: 71 bpm Height: 161 cm Systolic Blood Pressure: 128 mm Hg Weight: 47.5 kg Diastolic Blood Pressure: 70 mm Hg Body Mass Index:??18.32 kg/m2??Low Oxygen Saturation: 95 % Body surface area: 1.46 What to do next Scheduled Follow-Up Appointments 2023 10:00 AM EDT ?? Where: Transplant Pre [address] [place] [address]- Status: Pending Saturday 9:00 AM EDT ?? With: Shankar Carpenter MD, Wilman Aguilera Where: [facility] [place] [address]- Status: Pending Medications The list below reflects the information in our records and provided by you today along with any changes made during this visit. Please continue your medications until treatment is completed or stopped by your provider. If this is different from the information you have or there are other questions,please contact the prescribing provider. What How Much When Instructions Unchanged Amlodipine (amLODIPine 5 mg oral tablet) 1 tab(s) Oral Daily Unchanged Atorvastatin (atorvastatin 10 mg oral tablet) 1 tab(s) Oral Daily Unchanged Metoprolol (metoprolol 25 mg oral tablet, extended release) 1 tab(s) Oral Daily Duration: 90 Days Unchanged Albuterol (Albuterol (Eqv-ProAir HFA) 90 mcg/ inh inhalation aerosol) 2 puff(s) Inhalation Every 6 hours as needed for Wheezing/Shortness of Breath Contact prescribing physician if questions or concerns ?? Unchanged Albuterol (Albuterol (Eqv-Ventolin HFA) 90 mcg/ inh inhalation aerosol) 2 puff(s) Inhalation Every 6 hours Contact prescribing physician if questions or concerns ?? Unchanged Aripiprazole (Abilify 15 mg oral tablet) 1 tab(s) Oral Daily Contact prescribing physician if questions or concerns ?? Unchanged Azelastine Nasal (azelastine 137 mcg/ inh (0.1%) nasal spray) 2 spray(s) Nares, Both Daily as needed for Other Allergies Contact prescribing physician if questions or concerns ?? Unchanged BuPROpion (buPROPion 100 mg/ 12 hours (SR) oral tablet, extended release) 2 tab(s) Oral Daily Contact prescribing physician if questions or concerns ?? Unchanged Calcifediol (Rayaldee 30 mcg oral capsule, extended release) 1 capsule Oral Daily at Bedtime Contact prescribing physician if questions or concerns ?? Unchanged Carbamazepine (TEGretol XR 200 mg oral tablet, extended release) 1 tab(s) Oral Twice a day brand name only Contact prescribing physician if questions or concerns ?? Unchanged fluticasone/ umeclidinium/ vilanterol (Trelegy Ellipta) Inhalation Daily Contact prescribing physician if questions or concerns ?? Unchanged Levothyroxine (Synthroid 0.112 mg oral tablet) 1 tab(s) Oral Daily NAME BRAND ONLY Contact prescribing physician if questions or concerns ?? Unchanged Multivitamin With Minerals (PreserVision AREDS 2 oral capsule) Oral Daily BID Contact prescribing physician if questions or concerns ?? Unchanged [place]-3 Polyunsaturated Fatty Acids (Fish Oil 1200 mg oral capsule) 1 capsule Oral Daily Contact prescribing physician if questions or concerns ?? Unchanged Risperidone (risperiDONE 1 mg oral tablet) 1 tab(s) Oral Twice a day Contact prescribing physician if questions or concerns ?? Unchanged Risperidone (risperiDONE 1 mg oral tablet) 1.5 Milligram Oral Daily at Bedtime Contact prescribing physician if questions or concerns ?? Unchanged Ubiquinone (CoQ10 100 mg oral capsule) 1 capsule Oral Daily Contact prescribing physician if questions or concerns ?? Unchanged Ubiquinone (elppa CoQ10) 120 Milligram Oral Daily Contact prescribing physician if questions or concerns ?? Unchanged umeclidinium (Incruse Ellipta 62.5 mcg/ inh inhalation powder) 1 Each Inhalation Every 24 hours doses should be taken at least 24 hours apart Contact prescribing physician if questions or concerns ?? Medications and Immunizations Administered Medications Given During Visit No medications given during this visit.?? Allergies (NKA means No Known Allergies) Haldol carbamazepine??(double vision. vertigo) Common Emergency Awareness Tips IS IT A [...] are strongly encouraged to quit. Please call [employer] [facility] at [phone] or [phone] ([phone]) or log in to [email or web address] for referrals to smoking cessation programs. ?? The National Suicide Prevention Hotline is available 01/04 if you or someone you know needs to find a reason to keep living. By calling 2-018-826-bnhb (3064) you'll be connected to a skilled, trained counselor at a crisis center in your area. [facility] Portal You can view and manage your care through the patient portal or by using a health care ivonne of your choosing. [employer] is a website that allows you to securely view your medical information including your hospital discharge summary, office visit summaries, medications and follow-up visits. You can also request appointments, renew medications, and request access to your medical information using a health care ivonne of your choosing, or just ask a question. You can enroll at [email or web address] or register during your next office visit. [facility], in keeping with [facility] guidance, no longer requires face masks [...] medical provider or home test kit. ?? Disclaimer: The information provided is of a general nature and is intended to be used in conjunction with the recommendations and advice of your health care practitioner. Every effort has been made to ensure that the information provided is accurate and complete at the time it is provided to you however, as your needs change, or, as new information becomes available, different or additional instructions may be required. ?? If you have questions, please consult with your primary care provider or pharmacist, as appropriate. This information is not intended to serve as substitution for assessment and evaluation by a qualified health care provider. If you do not have a primary care provider, you may find a [facility] provider by calling [facility] at [phone]. Patient Care team information Care Team Personnel Name: Vera Mccauley Position: [facility] Outreach Member Role: Lifetime Consulting Physician Name: Charli Smith RN Position: [facility] ED RN W/OE and Tasks Member Role: Primary Care Nurse Name: Martin Lopez RN Position: [facility] SN RN Member Role: Primary Care Nurse Name: Teri Salazar RN Position: [facility] SN RN Member Role: Primary Care Nurse Name: Sammi GUZMÁN, Juan Carlos Maradiaga Position: S RN Member Role: Primary Care Nurse Name: Tali CAMERON, Maryuri Position: [facility] Renal MD Member Role: Lifetime Consulting Physician Address: Address: [address] [place] [address] [place] [address]- Name: Gyae Mondragon RN Position: [facility] RN Supv Member Role: Primary Care Nurse Name: Qi Ordaz RN Position: [facility] SN RN Member Role: Primary Care Nurse Name: Chaparro Mann MD Position: [facility] Physician - Primary Care Member Role: PCP Address: Address: [address] [place] [address]- Care Team Related Persons Name: YONATAN CHARLI Address: home [address] [place] [address] Name: JOANN WELLS Address: home [address] [place] [address]
--- OUTSIDE RECORDS SUMMARY | 2024-06-01 09:20 | XMS_ITS | Continuity of Care Document ---
Author Organization [facility] Address [address] [place] [address]- Care Team Providers Care Apartment Maintenance Name Role Phone Chaparro Mann MD Primary Care Physician [place] [facility] [place] Date(s): 01/21/20 - 02/20/[address] [address]- [facility] Attending Physician: Joshua Pierce8 Admitting Physician: AdmVikram gracia Referring Physician: Admtr, Ar8 Allergies, Adverse Reactions, [...] 11/25/19 10:23:00 EDT, Route to Pharmacy Electronically, [facility]/pharmacy #[id number], 162, cm, 09/21/19 15:36:00 EST, Height, [...] Active Diabetes mellitus - adult onset(Confirmed) Active Telephone Solicitor Supervisor-Johanny Villanueva(Confirmed) Active Hypothyroidism(Confirmed) Active Osteoporosis(Confirmed) Active Systolic dysfunction(Confirmed) Active PVCs (premature ventricular contractions)(Confirmed) Active Social History Social History Type Response Smoking Status Former smoker, quit more than 30 days ago entered on: 05/12/19 Sex
--- OUTSIDE RECORDS SUMMARY | 2024-06-01 09:20 | XMS_ITS | Continuity of Care Document ---
Author Organization [facility] ter Address [address] [place] [address]- Care Team Providers Care Toy Stuffer Name Role Phone Chaparro Mann MD Primary Care Physician [place] [facility] [place] 06/01/20 - 06/01/[address] [address]- [facility] Discharge Disposition: A-D/C Home Attending Physician: Kevin Middleton MD Admitting Physician: Kevin Middleton MD Referring Physician: Otto Gamino MD Allergies, [...] 10:23:00 EDT, Route to Pharmacy Electronically, [facility]/pharmacy #[id number], 162, cm, 09/21/19 15:36:00 [...] Active Diabetes mellitus - adult onset(Confirmed) Active Engineering SurveyorJuan Jose Villanueva(Confirmed) Active Hypothyroidism(Confirmed) Active Osteoporosis(Confirmed) Active Systolic dysfunction(Confirmed) Active PVCs (premature ventricular contractions)(Confirmed) Active Vital Signs Most recent to oldest [Reference Range]: 1 2 3 Height 159 cm (06/01/20 6:33 AM) 159 cm (06/01/20 6:32 AM) Weight 49.3 kg (06/01/20 6:33 AM) 49.3 kg (06/01/20 6:32 AM) Oxygen Saturation [94-100 %] 98 % (06/01/20 2:00 PM) 98 % (06/01/20 1:30 PM) 92 % *L* (06/01/20 1:00 PM) Pulse Rate [55-90 bpm] 79 bpm (06/01/20 6:33 AM) Body Mass Index [18.5-24.99] 19.5 (06/01/20 6:33 AM) Blood Pressure [90-138/55-84 mm Hg] 146/75mm Hg *H* (06/01/20 1:30 PM) 127/65mm Hg (06/01/20 1:00 PM) 129/51mm Hg (06/01/20 12:30 PM) Respiratory Rate [16-30 br/min] 17 br/min (06/01/20 2:00 PM) 22 br/min (06/01/20 1:30 PM) 29 br/min (06/01/20 1:00 PM) Temperature [96.8-100.4 DegF] 98 DegF (06/01/20 11:37 AM) 97.5 DegF (06/01/20 6:33 AM) Mode of Delivery (Oxygen) Room air (06/01/20 11:37 AM) Room air (06/01/20 6:33 AM) Room air (06/01/20 6:30 AM) Blood pressure sites Arm, left (06/01/20 11:37 AM) Arm, left (06/01/20 6:33 AM) Temperature Route Temporal (06/01/20 11:37 AM) Temporal (06/01/20 6:33 AM) Social History Social History Type Response Smoking Status Former smoker, quit more than 30 days ago; Other: quit 5 yrs ago 04/19/2015; entered on: 05/12/20 Sex
--- OUTSIDE RECORDS SUMMARY | 2024-06-01 09:20 | XMS_ITS | Continuity of Care Document ---
Author Organization [facility] Address [address] [place] [address]- Care Team Providers Care Machine Repairer Maintenance Name Role Phone Chaparro Mann MD Primary Care Physician Encounter [facility] [place] Date(s): 02/05/23 - 04/06/23 [facility] [address] [place] [address]- Attending Physician: Connor Orozco MD Admitting Physician: Connor Orozco MD Allergies, Adverse Reactions, Alerts Substance Reaction Severity Status carbamazepine double vision. vertigo Acti ve Haldol Active Immunizations Given and Recorded Vaccine Date Status Refusal Reason hepatitis B adult vaccine 09/13/22 Recorded hepatitis B adult vaccine 08/13/22 Recorded [id number] 12y+ bivalent booster vax 07/13/22 Recorded SARS-CoV-2 [...] 11 Refills, Maintenance, 03/04/23 11:27:00 EDT, [facility]/pharmacy #[id number], Partial fill upon patient request [...] mL, 11 Refills, Maintenance, 03/04/23 11:27:00 EDT, [place], [facility]/pharmacy #[id number], Partial fill upon patient request [...] Refills, Maintenance, 03/04/23 11:28:00 EDT, [place], [facility]/pharmacy #[id number], Partial fill upon patient request if the prescription is for a schedule... Start Date: 03/04/23 Status: Ordered metoprolol 25 mg oral tablet, extended release 25 mg, 1, tablet, By Mouth, Daily, # 90 tablet, Refills 3, Tot. Refills 3, Maintenance, 10/31/22 16:31:00 EST, Route to Pharmacy Electronically, [facility]/pharmacy #[id number], 161, cm, 08/15/22 8:56:00 EST, [...] Diabetes mellitus - adult onset Confirmed Active Labor Economist-Johanny Villanueva Confirmed Active Hypothyroidism Confirmed Active Osteoporosis Confirmed Active Systolic dysfunction Confirmed Active PVCs (premature ventricular contractions) Confirmed Active Social History Social History Type Response Smoking Status Former smoker, quit more than 30 days ago; Other: quit 5 yrs ago 04/19/2015; entered on: 05/12/20 Sex Patient Care team information Care Team Personnel Name: Vera Mccauley Position: [facility] Outreach Member Role: Lifetime Consulting Physician Name: Susan Smith RN Position: [facility] ED RN W/OE and Tasks Member Role: Primary Care Nurse Name: Teri Salazar RN Position: [facility] RN Member Role: Primary Care Nurse Name: Juan Carlos Chapa RN Position: [facility] RN Member Role: Primary Care Nurse Name: Barbara Chapa RN Position: [facility] AMB Nurse Member Role: Primary Care Nurse Name: Gaye Mondragon RN Position: [facility] RN Supv Member Role: Primary Care Nurse Name: Qi Ordaz RN Position: [facility] SN RN Member Role: Primary Care Nurse Name: Chaparro Mann MD Position: [facility] Physician - Primary Care Member Role: PCP Address: Address: [address] [place] [address], [place] [address]- Care Team Related Persons Name: SUSAN TAM Address: home [address] [place] [address] Name: NANCIE WELLS Address: home [address] [place] [address]
--- OUTSIDE RECORDS SUMMARY | 2024-06-01 09:20 | XMS_ITS | Continuity of Care Document ---
Author Organization [facility] Address [address] [place] [address]- Care Team Providers Care Product Managent Intern Name Role Phone Chaparro Mann MD Primary Care Physician Encounter [facility] [place] Date(s): 06/14/20 - 07/14/20 [facility] [address] [place] [address] Allergies, Adverse Reactions, Alerts Substance [...] 11/25/19 10:23:00 EDT, Route to Pharmacy Electronically, [facility]/pharmacy #[id number], 162, cm, 09/21/19 15:36:00 EST, Height, 48.8, [...] Active Diabetes mellitus - adult onset(Confirmed) Active Edging Supervisor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
--- OUTSIDE RECORDS SUMMARY | 2024-06-01 09:20 | XMS_ITS | Continuity of Care Document ---
Author Organization [facility] Address [address] [place] [address] [address], [address] [place] [address]- Care Team Providers Care Restrooms Or Lounges Maid Name Role Phone Johnathan CAMERON, Chaparro West Primary Care Physician Encounter [facility] [place] Date(s): 08/26/19 - 09/02/19 [facility] [address] [place] [address] Drive, [address] [place] [address]- [facility] Attending Physician: Saundra CAMERON, Ganesh Monteiro Allergies, Adverse Reactions, Alerts Substance Reaction Severity [...] Date: 04/17/19 Status: Ordered elppa CoQ10 = 200 mg, By Mouth, Daily, 0 Refills, Maintenance, 03/07/15 14:21:56 Start Date: 03/07/15 Status: Ordered Fish Oil [...] Date: 08/13/19 Stop Date: 12/11/19 Status: Ordered PreserVision AREDS 2 oral capsule [...] Active Diabetes mellitus - adult onset(Confirmed) Active Health WorkerJuan Jose Villanueva(Confirmed) Active Hypothyroidism(Confirmed) Active Osteoporosis(Confirmed) Active Vital Signs Most recent to oldest [Reference Range]: 1 Height 162 cm (08/26/19 11:22 AM) Weight 49.3 kg (08/26/19 11:22 AM) Body Mass Index [18.5-24.99] 18.79 (08/26/19 11:22 AM) Social History Social History Type Response Smoking Status Former smoker, quit more than 30 days ago entered on: 05/12/19 Sex
--- OUTSIDE RECORDS SUMMARY | 2024-06-01 09:20 | XMS_ITS | Continuity of Care Document ---
Author Organization [facility] Address [address] [place] [address]- Care Team Providers Care Gymnasium Teacher Name Role Phone Chaparro Mann MD Primary Care Physician [place] [facility] [place](s): 05/13/20 - 06/12/20 [facility] [address] [place] [address]- [facility] Allergies, Adverse Reactions, Alerts Substance Reaction [...] 11/25/19 10:23:00 EDT, Route to Pharmacy Electronically, [facility]/pharmacy #[id number], 162, cm, 09/21/19 15:36:00 EST, Height, 48.8, [...] Active Diabetes mellitus - adult onset(Confirmed) Active Block Mechanic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
--- OUTSIDE RECORDS SUMMARY | 2024-06-01 09:20 | XMS_ITS | Continuity of Care Document ---
Author Organization [facility] Address Unknown Care Team Providers Care Grinder Chipper Name Role Phone Chaparro Mann MD Primary Care Physician Encounter [facility] [place] Date(s): 03/05/22 - 04/04/22 [facility] Attending Physician: Vikram Pierce Admitting Physician: Vikram [...] a day, # 90 tablet, 3 Refills, [facility], 162.5, cm, 10/26/21 12:37:00 EST, Height, 51, [...] Diabetes mellitus - adult onset(Confirmed) Active Environmental Engineering Aide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
--- OUTSIDE RECORDS SUMMARY | 2024-06-01 09:20 | XMS_ITS | Continuity of Care Document ---
Author Organization [facility] Address [address] [place] [address]- Care Team Providers Care Top Frame Fitter Name Role Phone Chaparro Mann MD Primary Care Physician En[place] [facility] [place] Date(s): 07/08/20 - 07/08/[address] [address]- [facility] Discharge Disposition: A-D/C Home Attending Physician: Otto [...] 10:23:00 EDT, Route to Pharmacy Electronically, [facility]/pharmacy #[id number], 162, cm, 09/21/19 15:36:00 EST, Height, 48.8, [...] Active Diabetes mellitus - adult onset(Confirmed) Active Hot Water Heater InstallerJuan Jose Villanueva(Confirmed) Active Hypothyroidism(Confirmed) Active Osteoporosis(Confirmed) Active Systolic dysfunction(Confirmed) Active PVCs (premature ventricular contractions)(Confirmed) Active Vital Signs Most recent to oldest [Reference Range]: 1 2 3 Height 159 cm (07/08/20 6:37 AM) 159 cm (07/08/20 6:23 AM) 159 cm (07/08/20 6:11 AM) Weight 49 kg (07/08/20 6:37 AM) 49 kg (07/08/20 6:11 AM) Oxygen Saturation [94-100 %] 100 % (07/08/20 6:23 AM) Pulse Rate [55-90 bpm] 41 bpm *L* (07/08/20 6:23 AM) Blood Pressure [90-138/55-84 mm Hg] 142/60mm Hg *H* (07/08/20 6:23 AM) Respiratory Rate [16-30 br/min] 18 br/min (07/08/20 6:23 AM) Temperature [96.8-100.4 DegF] 97.6 DegF (07/08/20 6:23 AM) Mode of Delivery (Oxygen) Room air (07/08/20 6:23 AM) Blood pressure sites Arm, right (07/08/20 6:23 AM) Temperature Route Oral (07/08/20 6:23 AM) Dry Weight 49 kg (07/08/20 6:11 AM) Social History Social History Type Response Smoking Status Former smoker, quit more than 30 days ago; Other: quit 5 yrs ago 04/19/2015; entered on: 05/12/20 Sex
--- OUTSIDE RECORDS SUMMARY | 2024-06-01 09:20 | XMS_ITS | Continuity of Care Document ---
Author Organization [facility] Address [address] [place] [address]- Care Team Providers Care Field Talent Qualification Specialist Name Role Phone Chaparro Mann MD Primary Care Physician Encounter [facility] [place] Date(s): 04/11/21 - 05/11/21 [facility] [address] [place] [address]- [place] Allergies, Adverse Reactions, Alerts Substance Reaction [...] 11/14/20 16:22:00 EST, Route to Pharmacy Electronically, [facility]/pharmacy #[id number], 162.5, cm, 10/27/20 15:17:00 [...] Active Diabetes mellitus - adult onset(Confirmed) Active Clay Products Machine OperatorJuan Jose 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
--- OUTSIDE RECORDS SUMMARY | 2024-06-01 09:20 | XMS_ITS | Continuity of Care Document ---
Author Organization [facility] Address [address] [place] [address]- Care Team Providers Care Nitrocellulose Maker Name Role Phone Chaparro Mann MD Primary Care Physician [phone] [place] [facility] [place] Date(s): 06/17/19 - 08/28/19 [facility] [address] [place] [address]- Attending Physician: Mark Patel MD Admitting Physician: Mark Patel MD Allergies, Adverse Reactions, Alerts Substance Reaction [...] Active Diabetes mellitus - adult onset(Confirmed) Active Chopped Strand Operator-Johanny Villanueva(Confirmed) Active Hypothyroidism(Confirmed) Active Osteoporosis(Confirmed) Active Social History Social History Type Response Smoking Status Former smoker, quit more than 30 days ago entered on: 05/12/19 Sex
--- OUTSIDE RECORDS SUMMARY | 2024-06-01 09:20 | XMS_ITS | Continuity of Care Document ---
Author Organization [facility] Address [address] [place] [address]- Care Team Providers Care Land Leasing Examiner Name Role Phone Chaparro Mann MD Primary Care Physician Encounter [facility] [place] Date(s): 04/13/20 - 05/13/20 [facility] [address] [place] [address]- [facility] Attending Physician: AdmJoshua [id number] Admitting Physician: Admtr, Joshua8 Referring Physician: Admtr, [...] 11/25/19 10:23:00 EDT, Route to Pharmacy Electronically, [facility]/pharmacy #[id number], 162, cm, 09/21/19 15:36:00 EST, [...] Active Diabetes mellitus - adult onset(Confirmed) Active Cco & PresidentJuan Jose 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
--- OUTSIDE RECORDS SUMMARY | 2024-06-01 09:20 | XMS_ITS | Continuity of Care Document ---
Author Organization [facility] Address [address] [place] [address]- Care Team Providers Care Matrix Drier Tender Name Role Phone Chaparro Mann MD Primary Care Physician [place] [facility] [place] 09/19/20 - 10/19/20 [facility] [address] [place] [address] Allergies, Adverse Reactions, Alerts Substance Reaction [...] 08/16/20 15:10:00 EST, Route to Pharmacy Electronically, [facility]/pharmacy #[id number], Partial fill upon patient request, 159, cm, [...] 11/25/19 10:23:00 EDT, Route to Pharmacy Electronically, [facility]/pharmacy #[id number], 162, cm, 09/21/19 15:36:00 EST, Height, 48.8, kg, 16... Start Date: 11/25/19 Stop Date: 11/19/20 Status: [...] Active Diabetes mellitus - adult onset(Confirmed) Active Director Of Strategic ProgramsJuan Jose 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
--- OUTSIDE RECORDS SUMMARY | 2024-06-01 09:20 | XMS_ITS | Continuity of Care Document ---
Author Organization [facility] ter Address [address] [place] [address]- Care Team Providers Care Door Furring Installer Name Role Phone Chaparro Mann MD Primary Care Physician Encounter [facility] [place] Date(s): 09/25/19 - 10/02/[address] [address]- [facility] Attending Physician: Chaparro Mann MD Allergies, Adverse Reactions, [...] Active Diabetes mellitus - adult onset(Confirmed) Active Claims Supervisor-Johanny Villanueva(Confirmed) Active Hypothyroidism(Confirmed) Active Osteoporosis(Confirmed) Active Social History Social History Type Response Smoking Status Former smoker, quit more than 30 days ago entered on: 05/12/19 Sex
--- OUTSIDE RECORDS SUMMARY | 2024-06-01 09:20 | XMS_ITS | Continuity of Care Document ---
Author Organization [facility] Address [address] [place] [address]- Care Team Providers Care Associate Professor Of Psychology Name Role Phone Chaparro Mann MD Primary Care Physician [place] [facility] [place](s): 02/04/24 - 03/05/24 [facility] [address] [place] [address] Allergies, Adverse Reactions, Alerts Substance Reaction Severity Status carbamazepine double vision. vertigo Acti ve Haldol Active Immunizations Given and Recorded Vaccine Date Status Refusal Reason hepatitis B adult vaccine 09/13/22 Recorded hepatitis B adult vaccine 08/13/22 Recorded [id number] 12y+ bivalent booster vax 07/13/22 Recorded SARS-CoV-2 [...] 11 Refills, Maintenance, 03/04/23 11:27:00 EDT, [facility]/pharmacy #[id number], Partial fill upon patient request if [...] mL, 11 Refills, Maintenance, 03/04/23 11:27:00 EDT, [place], [facility]/pharmacy #[id number], Partial fill upon patient request if [...] Refills, Maintenance, 03/04/23 11:28:00 EDT, [place], [facility]/pharmacy #[id number], Partial fill upon patient request if the prescription is for a schedule... Start Date: 03/04/23 Status: Ordered metoprolol 25 mg oral tablet, extended release 25 mg, 1, tablet, By Mouth, Daily, # 90 tablet, Refills 3, Tot. Refills 3, Maintenance, 08/15/23 11:52:00 EST, Route to Pharmacy Electronically, [facility]/pharmacy #[id number], 161, cm, 07/22/23 12:23:00 EST, Height, [...] Diabetes mellitus - adult onset Confirmed Active Cash Office Worker-Johanny Villanueva Confirmed Active Hypothyroidism Confirmed Active Osteoporosis Confirmed Active Systolic dysfunction Confirmed Active PVCs (premature ventricular contractions) Confirmed Active Social History Social History Type Response Smoking Status Former smoker, quit more than 30 days ago; Other: quit 5 yrs ago 04/19/2015; entered on: 05/12/20 Sex Patient Care team information Care Team Personnel Name: Garrick Vera Position: [facility] Outreach Member Role: Lifetime Consulting Physician Name: Susan Smith RN Position: [facility] ED RN W/OE and Tasks Member Role: Primary Care Nurse Name: Martin Lopez RN Position: [facility] SN RN Member Role: Primary Care Nurse Name: Teri Salazar RN Position: [facility] SN RN Member Role: Primary Care Nurse Name: Juan Carlos Chapa RN Position: [facility] RN Member Role: Primary Care Nurse Name: Maryuri Cesar MD Position: [facility] Renal MD Member Role: Lifetime Consulting Physician Address: Address: [address] [place] [address] [facility] [address] Name: Gaye Mondragon RN Position: S RN Supv Member Role: Primary Care Nurse Name: Qi Ordaz RN Position: S SN RN Member Role: Primary Care Nurse Name: Chaparro Mann MD Position: [facility] Physician - Primary Care Member Role: PCP Address: Address: [address] [place] [address]- Care Team Related Persons Name: YONATAN SUSAN Address: [address] [place] [address] Name: NANCIE WELLS Address: home [address] [place] [address]
--- OUTSIDE RECORDS SUMMARY | 2024-06-01 09:20 | XMS_ITS | Continuity of Care Document ---
Author Organization [facility] ed[facility] Address [address] [place] [address]- Care Team Providers Care Potato Seed Cutter Name Role Phone Chaparro Mann MD Primary Care Physician Encounter [facility] [place] Date(s): 11/22/23 - 12/22/23 [facility] [address] [place] [id number] Allergies, Adverse Reactions, Alerts Substance Reaction Severity Status carbamazepine double vision. vertigo Acti ve Haldol Active Immunizations Given and Recorded Vaccine Date Status Refusal Reason hepatitis B adult vaccine 09/13/22 Recorded hepatitis B adult vaccine 08/13/22 Recorded [id number] 12y+ bivalent booster vax 07/13/22 Recorded SARS-CoV-2 [...] Gm, 11 Refills, Maintenance, 03/04/23 11:27:00 EDT, [facility]/pharmacy #[id number], Partial fill upon patient [...] mL, 11 Refills, Maintenance, 03/04/23 11:27:00 EDT, [place], [facility]/pharmacy #[id number], Partial fill upon patient [...] 11 Refills, Maintenance, 03/04/23 11:28:00 EDT, [place], [facility]/pharmacy #[id number], Partial fill upon patient request if the prescription is for a schedule... Start Date: 03/04/23 Status: Ordered metoprolol 25 mg oral tablet, extended release 25 mg, 1, tablet, By Mouth, Daily, # 90 tablet, Refills 3, Tot. Refills 3, Maintenance, 08/15/23 11:52:00 EST, Route to Pharmacy Electronically, [facility]/pharmacy #[id number], 161, cm, 07/22/23 12:23:00 EST, [...] Diabetes mellitus - adult onset Confirmed Active Contract Lead-Johanny Villanueva Confirmed Active Hypothyroidism Confirmed Active Osteoporosis Confirmed Active Systolic dysfunction Confirmed Active PVCs (premature ventricular contractions) Confirmed Active Social History Social History Type Response Smoking Status Former smoker, quit more than 30 days ago; Other: quit 5 yrs ago 04/19/2015; entered on: 05/12/20 Sex Patient Care team information Care Team Personnel Name: Vera Mccauley Position: [facility] Outreach Member Role: Lifetime Consulting Physician Name: Susan Smith RN Position: [facility] ED RN W/OE and Tasks Member Role: Primary Care Nurse Name: John GUZMÁN, Martin Bryan Position: [facility] SN RN Member Role: Primary Care Nurse Name: Sammi GUZMÁN, Juan Carlos Maradiaga Position: [facility] RN Member Role: Primary Care Nurse Name: Maryuri Cesar MD Position: [facility] Renal MD Member Role: Lifetime Consulting Physician Address: Address: [address] [place] [address] [place] [address]- Name: Gaye Mondragon RN Position: [facility] RN Supv Member Role: Primary Care Nurse Name: Qi Ordaz RN Position: [facility] SN RN Member Role: Primary Care Nurse Name: Chaparro Mann MD Position: [facility] Physician - Primary Care Member Role: PCP Address: Address: [address] [place] [address], [place] [address]- Care Team Related Persons Name: SUSAN TAM Address: home [address] [place] [address] Name: NANCIE WELLS Address: home [address] [place] [address]
--- OUTSIDE RECORDS SUMMARY | 2024-06-01 09:20 | XMS_ITS | Continuity of Care Document ---
Author Organization [facility] Address Unknown Care Team Providers Care Talent Management Specialist Name Role Phone Johnathan CAMERON, Chaparro West Primary Care Physician Encounter [facility] Date(s): 05/25/21 - 06/24/21 [facility] Allergies, Adverse Reactions, Alerts Substance Reaction Severity [...] 11/14/20 16:22:00 EST, Route to Pharmacy Electronically, [facility]/pharmacy #[id number], 162.5, cm, 10/27/20 15:17:00 EST, [...] Active Diabetes mellitus - adult onset(Confirmed) Active Cloth Shrinking Machine Operator Helper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
--- OUTSIDE RECORDS SUMMARY | 2024-06-01 09:20 | XMS_ITS | Continuity of Care Document ---
Author Organization [facility] ed[facility] Address [address] [place] [address]- Care Team Providers Care Autos Disassembler Name Role Phone Chaparro Mann MD Primary Care Physician [phone] [place] [facility] [place] 04/02/23 - 05/02/23 [facility] [address] [place] [id number] Allergies, Adverse Reactions, Alerts Substance Reaction Severity Status carbamazepine double vision. vertigo Acti ve Haldol Active Immunizations Given and Recorded Vaccine Date Status Refusal Reason hepatitis B adult vaccine 09/13/22 Recorded hepatitis B adult vaccine 08/13/22 Recorded [id number] 12y+ bivalent booster vax 07/13/22 Recorded SARS-CoV-2 [...] 11 Refills, Maintenance, 03/04/23 11:27:00 EDT, [facility]/pharmacy #[id number], Partial fill upon patient [...] mL, 11 Refills, Maintenance, 03/04/23 11:27:00 EDT, [place], [facility]/pharmacy #[id number], Partial fill upon patient [...] Refills, Maintenance, 03/04/23 11:28:00 EDT, [place], [facility]/pharmacy #[id number], Partial fill upon patient request if the prescription is for a schedule... Start Date: 03/04/23 Status: Ordered metoprolol 25 mg oral tablet, extended release 25 mg, 1, tablet, By Mouth, Daily, # 90 tablet, Refills 3, Tot. Refills 3, Maintenance, 10/31/22 16:31:00 EST, Route to Pharmacy Electronically, [facility]/pharmacy #[id number], 161, cm, 08/15/22 8:56:00 EST, [...] Diabetes mellitus - adult onset Confirmed Active Field Services Director-Johanny Villanueva Confirmed Active Hypothyroidism Confirmed Active Osteoporosis Confirmed Active Systolic dysfunction Confirmed Active PVCs (premature ventricular contractions) Confirmed Active Social History Social History Type Response Smoking Status Former smoker, quit more than 30 days ago; Other: quit 5 yrs ago 04/19/2015; entered on: 05/12/20 Sex Patient Care team information Care Team Personnel Name: Vear Mccauley Position: [facility] Outreach Member Role: Lifetime Consulting Physician Name: Susan Smith RN Position: [facility] ED RN W/OE and Tasks Member Role: Primary Care Nurse Name: Teri Salazar RN Position: [facility] RN Member Role: Primary Care Nurse Name: Juan Carlos Chapa RN Position: [facility] RN Member Role: Primary Care Nurse Name: Barbara Chapa RN Position: [facility] RN Member Role: Primary Care Nurse Name: Maryuri Cesar MD Position: [facility] Renal MD Member Role: Lifetime Consulting Physician Address: Address: [address] [place] [address] [place] [address]- Name: Gaye Mondragon RN Position: [facility] RN Supv Member Role: Primary Care Nurse Name: Qi Ordaz RN Position: [facility] SN RN Member Role: Primary Care Nurse Name: Chaparro Mann MD Position: [facility] Physician - Primary Care Member Role: PCP Address: Address: [address] [place] [address], [place] [address]- Care Team Related Persons Name: SUSAN TAM Address: home [address] [place] [address] Name: NANCIE WELLS Address: home [address] [place] [address]
--- OUTSIDE RECORDS SUMMARY | 2024-06-01 09:20 | XMS_ITS | Continuity of Care Document ---
Author Organization [facility] Address [address] [place] [address]- Care Team Providers Care Transitional Kindergarten Teacher Name Role Phone Chaparro Mann MD Primary Care Physician [phone] Encounter [facility] [place] Date(s): 07/29/20 - 08/28/20 [facility] [address] [place] [phone] Allergies, Adverse Reactions, Alerts [...] 08/16/20 15:10:00 EST, Route to Pharmacy Electronically, [facility]/pharmacy #[id number], Partial fill upon patient request, 159, cm, [...] 11/25/19 10:23:00 EDT, Route to Pharmacy Electronically, [facility]/pharmacy #[id number], 162, cm, 09/21/19 15:36:00 EST, [...] Active Diabetes mellitus - adult onset(Confirmed) Active Employment Recruiter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
--- OUTSIDE RECORDS SUMMARY | 2024-06-01 09:20 | XMS_ITS | Continuity of Care Document ---
Author Organization [facility] Address [address] [place] [address]- Care Team Providers Care Functional Director Name Role Phone Chaparro Mann MD Primary Care Physician Encounter [facility] [place] Date(s): 10/27/20 - 11/26/20 [facility] [address] [place] [email or web address] Attending Physician: AdmVikram gracia Admitting Physician: Admtr, [...] 08/16/20 15:10:00 EST, Route to Pharmacy Electronically, [facility]/pharmacy #[id number], Partial fill upon patient request, 159, cm, [...] 11/14/20 16:22:00 EST, Route to Pharmacy Electronically, [facility]/pharmacy #[id number], 162.5, cm, 10/27/20 15:17:00 EST, [...] Active Diabetes mellitus - adult onset(Confirmed) Active Chemistry SpecialistJuan Jose 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
--- OUTSIDE RECORDS SUMMARY | 2024-06-01 09:20 | XMS_ITS | Continuity of Care Document ---
Author Organization [facility] Address [address] [place] [address]- Care Team Providers Care Shot Tube Machine Tender Name Role Phone Chaparro Mann MD Primary Care Physician [phone] [place] [facility] [place] 08/11/21 - 09/10/21 [facility] [address] [place] [address]- [place] Allergies, Adverse Reactions, Alerts Substance Reaction [...] 16:22:00 EST, Route to Pharmacy Electronically, [facility]/pharmacy #[id number], 162.5, cm, 10/27/20 15:17:00 [...] Active Diabetes mellitus - adult onset(Confirmed) Active Diabetes NurseJuan Jose 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
--- OUTSIDE RECORDS SUMMARY | 2024-06-01 09:20 | XMS_ITS | Continuity of Care Document ---
Author Organization [facility] Address [address] [place] [address]- Care Team Providers Care Philosophy Instructor Name Role Phone Chaparro Mann MD Primary Care Physician [place] [facility] [place](s): 12/19/20 - 01/18/21 [facility] [address] [place] [id number] Allergies, Adverse Reactions, Alerts Substance Reaction [...] Route to Pharmacy Electronically, [facility]/pharmacy #[id number], Partial fill upon patient request, 159, cm, [...] Route to Pharmacy Electronically, [facility]/pharmacy #[id number], 162.5, cm, 10/27/20 15:17:00 EST, Height, 49, [...] Active Diabetes mellitus - adult onset(Confirmed) Active Critical Care Paramedic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
--- OUTSIDE RECORDS SUMMARY | 2024-06-01 09:20 | XMS_ITS | Continuity of Care Document ---
Author Organization [facility] Address [address] [place] [address]- Care Team Providers Care Dray Driver Name Role Phone Chaparro Mann MD Primary Care Physician [phone] Encounter [facility] [place] Date(s): 11/07/21 - 12/07/21 [facility] [address] [place] [address]- [place] Allergies, Adverse Reactions, Alerts Substance Reaction [...] a day, # 90 tablet, 3 Refills, [id number], 162.5, cm, 10/26/21 12:37:00 EST, Height, 51, [...] Active Diabetes mellitus - adult onset(Confirmed) Active Dial PainterJuan Jose 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
--- OUTSIDE RECORDS SUMMARY | 2024-06-01 09:20 | XMS_ITS | Continuity of Care Document ---
Author Organization [facility] Address Unknown Care Team Providers Care Superintendent Track Name Role Phone Chaparro Mann MD Primary Care Physician [phone] Encounter [facility] Date(s): 10/23/21 - 11/22/21 [facility] Allergies, Adverse Reactions, Alerts Substance Reaction [...] a day, # 90 tablet, 3 Refills, [id number], 162.5, cm, 10/26/21 12:37:00 EST, Height, 51, [...] Active Diabetes mellitus - adult onset(Confirmed) Active Tape Folding Machine Operator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
--- OUTSIDE RECORDS SUMMARY | 2024-06-01 09:20 | XMS_ITS | Continuity of Care Document ---
Author Organization [facility] Address [address] [place] [address]- Care Team Providers Care Eligibility Specialist Name Role Phone Chaparro Mann MD Primary Care Physician [place] [facility] [place]24 - 04/24/24 [facility] [address] [place] [address] Allergies, Adverse Reactions, Alerts Substance Reaction Severity Status carbamazepine double vision. vertigo Acti ve Haldol Active Immunizations Given and Recorded Vaccine Date Status Refusal Reason hepatitis B adult vaccine 09/13/22 Recorded hepatitis B adult vaccine 08/13/22 Recorded [id number] 12y+ bivalent booster vax 07/13/22 Recorded SARS-CoV-2 [...] 11 Refills, Maintenance, 03/04/23 11:27:00 EDT, [facility]/pharmacy #[id number], Partial fill upon [...] mL, 11 Refills, Maintenance, 03/04/23 11:27:00 EDT, [place], [facility]/pharmacy #[id number], Partial fill upon [...] Refills, Maintenance, 03/04/23 11:28:00 EDT, [place], [facility]/pharmacy #[id number], Partial fill upon patient request if the prescription is for a schedule... Start Date: 03/04/23 Status: Ordered metoprolol 25 mg oral tablet, extended release 25 mg, 1, tablet, By Mouth, Daily, # 90 tablet, Refills 3, Tot. 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 Automatic-Johanny Villanueva Confirmed Active Hypothyroidism Confirmed Active Osteoporosis Confirmed Active Systolic dysfunction Confirmed Active PVCs (premature ventricular contractions) Confirmed Active Social History Social History Type Response Smoking Status Former smoker, quit more than 30 days ago; Other: quit 5 yrs ago 04/19/2015; entered on: 05/12/20 Sex Patient Care team information Care Team Personnel Name: Vera Mccauley Position: [facility] Outreach Member Role: Lifetime Consulting Physician Name: Susan Smith RN Position: [facility] ED RN W/OE and Tasks Member Role: Primary Care Nurse Name: Martin Lopez RN Position: [facility] SN RN Member Role: Primary Care Nurse Name: Teri Salazar RN Position: [facility] SN RN Member Role: Primary Care Nurse Name: Juan Carlos Chapa RN Position: [facility] RN Member Role: Primary Care Nurse Name: Maryuri Cesar MD Position: [facility] Renal MD Member Role: Lifetime Consulting Physician Address: Address: [address] [place] [address] [facility] [address] Name: Gaye Mondragon RN Position: S RN Supv Member Role: Primary Care Nurse Name: Qi Ordaz RN Position: S RN Member Role: Primary Care Nurse Name: Chapraro Mann MD Position: [facility] Physician - Primary Care Member Role: PCP Address: Address: [address] [place] [address]- Care Team Related Persons Name: SUSAN TAM Address: home [address] [place] [address] Name: NANCIE WELLS Address: [address] [place] [address]
--- OUTSIDE RECORDS SUMMARY | 2024-06-01 09:20 | XMS_ITS | Continuity of Care Document ---
Author Organization [facility] Address [address] [place] [address] [address]os, [address] [place] [address]- Care Team Providers Care Guillotine Trimmer Name Role Phone Chaparro Mann MD Primary Care Physician Encounter [facility] [place] Date(s): 08/26/19 - 09/05/19 [facility] [address] [place] [address], [address] [place] [address]- [facility] Attending Physician: Admbasil, Joshua8 Admitting Physician: Admtr, Vikram Referring Physician: Admtr, [...] Active Diabetes mellitus - adult onset(Confirmed) Active Dorr OperatorJuan Jose Villanueva(Confirmed) Active Hypothyroidism(Confirmed) Active Osteoporosis(Confirmed) Active Social History Social History Type Response Smoking Status Former smoker, quit more than 30 days ago entered on: 05/12/19 Sex
--- OUTSIDE RECORDS SUMMARY | 2024-06-01 09:21 | XMS_ITS | Continuity of Care Document ---
Author Organization [facility] Address [address] [address]- Care Team Providers Care Medical Artist Name Role Phone Chaparro Mann MD Primary Care Physician [place] [facility] [place] 11/[place]22 - 03/23/23 [facility] [address] [address] Attending Physician: Shankar Carpenter MD, Wilman Aguilera Admitting Physician: Shankar Carpenter MD, Wilman Aguilera Allergies, Adverse Reactions, Alerts Substance Reaction Severity Status carbamazepine double vision. vertigo Acti ve Haldol Active Immunizations Given and Recorded Vaccine Date Status Refusal Reason hepatitis B adult vaccine 09/13/22 Recorded hepatitis B adult vaccine 08/13/22 Recorded [id number] 12y+ bivalent booster vax 07/13/22 Recorded SARS-CoV-2 [...] Gm, 11 Refills, Maintenance, 03/04/23 11:27:00 EDT, [facility]/pharmacy #[id number], Partial fill upon patient request [...] mL, 11 Refills, Maintenance, 03/04/23 11:27:00 EDT, [place], [facility]/pharmacy #[id number], Partial fill upon patient request [...] 11 Refills, Maintenance, 03/04/23 11:28:00 EDT, [place], [facility]/pharmacy #[id number], Partial fill upon patient request if the prescription is for a schedule... Start Date: 03/04/23 Status: Ordered metoprolol 25 mg oral tablet, extended release 25 mg, 1, tablet, By Mouth, Daily, # 90 tablet, Refills 3, Tot. 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 Member-Johanny Villanueva Confirmed Active Hypothyroidism Confirmed Active Osteoporosis Confirmed Active Systolic dysfunction Confirmed Active PVCs (premature ventricular contractions) Confirmed Active Social History Social History Type Response Smoking Status Former smoker, quit more than 30 days ago; Other: quit 5 yrs ago 04/19/2015; entered on: 05/12/20 Sex Patient Care team information Care Team Personnel Name: Garrick Vera Position: [facility] Outreach Member Role: Lifetime Consulting Physician Name: Susan Smith RN Position: [facility] ED RN W/OE and Tasks Member Role: Primary Care Nurse Name: Teri Salazar RN Position: [facility] RN Member Role: Primary Care Nurse Name: Juan Carlos Chapa RN Position: [facility] RN Member Role: Primary Care Nurse Name: Barbara Chapa RN Position: [facility] RN Member Role: Primary Care Nurse Name: Gaye Mondragon RN Position: [facility] RN Supv Member Role: Primary Care Nurse Name: Qi Ordaz RN Position: [facility] SN RN Member Role: Primary Care Nurse Name: Chaparro Mann MD Position: [facility] Physician - Primary Care Member Role: PCP Address: Address: [address] [place] [address], [place] [address]- Care Team Related Persons Name: SUSAN TAM Address: home [address] [place] [address] Name: NANCIE WELLS Address: home [address] [place] [address]
--- OUTSIDE RECORDS SUMMARY | 2024-06-01 09:21 | XMS_ITS | Continuity of Care Document ---
Author Organization [facility] Address [address] [place] [address]- Care Team Providers Care Lumber Racker Name Role Phone Chaparro Mann MD Primary Care Physician Encounter [facility] [place] Date(s): 01/20/20 - 01/27/20 [facility] [address] [place] [address]- [facility] Encounter Diagnosis PVCs (premature ventricular contractions)(Discharge Diagnosis) - 01/20/20 Attending Physician: Riky Garza MD Referring Physician: Chaparro [...] EDT, Route to Pharmacy Electronically, [facility]/pharmacy #[id number], 162, cm, 09/21/19 15:36:00 [...] Active Diabetes mellitus - adult onset(Confirmed) Active Respiratory Care Program DirectorJuan Jose Villanueva(Confirmed) Active Hypothyroidism(Confirmed) Active Osteoporosis(Confirmed) Active Systolic dysfunction(Confirmed) Active PVCs (premature ventricular contractions)(Confirmed) Active Diagnosis Diagnosis Type Effective Dates Health Status Clinical Service Informant PVCs (premature ventricular contractions) Discharge Diagnosis 01/20/20 Social History Social History Type Response Smoking Status Former smoker, quit more than 30 days ago entered on: 05/12/19 Sex
--- OUTSIDE RECORDS SUMMARY | 2024-06-01 09:21 | XMS_ITS | Continuity of Care Document ---
Author Organization [facility] Address [address] [place] [address]- Care Team Providers Care Operations Leader Name Role Phone Chaparro Mann MD Primary Care Physician [phone] Encounter [facility] Date(s): 05/17/21 - 06/16/[address] [address] Attending Physician: Admbasil, Vikram Admitting Physician: AdmtrVikram Referring Physician: Admtr, Ar8 [...] 11/14/20 16:22:00 EST, Route to Pharmacy Electronically, [facility]/pharmacy #[id number], 162.5, cm, 10/27/20 15:17:00 EST, Height, 49, [...] Active Diabetes mellitus - adult onset(Confirmed) Active Manager Assisted Living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
--- OUTSIDE RECORDS SUMMARY | 2024-06-01 09:21 | XMS_ITS | Continuity of Care Document ---
Author Organization [facility] Address [address] [address]- Care Team Providers Care Asic Engineer Name Role Phone Chaparro Mann MD Primary Care Physician Encounter [facility] Date(s): 03/04/23 - 04/03/23 [facility] [address] [place] [address] Attending Physician: AdmVikram gracia Admitting Physician: Admtr, ArJess Referring Physician: Admtr, Ar8 Allergies, Adverse Reactions, Alerts Substance Reaction Severity Status carbamazepine double vision. vertigo Acti ve Haldol Active Immunizations Given and Recorded Vaccine Date Status Refusal Reason hepatitis B adult vaccine 09/13/22 Recorded hepatitis B adult vaccine 08/13/22 Recorded [id number] 12y+ bivalent booster vax 07/13/22 Recorded SARS-CoV-2 [...] Gm, 11 Refills, Maintenance, 03/04/23 11:27:00 EDT, [facility]/pharmacy #[id number], Partial fill upon patient [...] mL, 11 Refills, Maintenance, 03/04/23 11:27:00 EDT, [place], [facility]/pharmacy #[id number], Partial fill upon patient [...] 11 Refills, Maintenance, 03/04/23 11:28:00 EDT, [place], [facility]/pharmacy #[id number], Partial fill upon patient request if the prescription is for a schedule... Start Date: 03/04/23 Status: Ordered metoprolol 25 mg oral tablet, extended release 25 mg, 1, tablet, By Mouth, Daily, # 90 tablet, Refills 3, Tot. 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 Traffic Systems Technician-Johanny Villanueva Confirmed Active Hypothyroidism Confirmed Active Osteoporosis [...] Care Team Personnel Name: Vera Mccauley Position: [facility] Outreach Member Role: Lifetime Consulting Physician Name: Susan Smith RN Position: [facility] ED RN W/OE and Tasks Member Role: Primary Care Nurse Name: Teri Salazar RN Position: [facility] RN Member Role: Primary Care Nurse Name: Juan Carlos Chapa RN Position: [facility] RN Member Role: Primary Care Nurse Name: Barbara Chapa RN Position: [facility] AMB Nurse Member Role: Primary Care Nurse Name: Gaye Mondragon RN Position: [facility] RN Supv Member Role: Primary Care Nurse Name: Qi Ordaz RN Position: [facility] SN RN Member Role: Primary Care Nurse Name: Chaparro Mann MD Position: [facility] Physician - Primary Care Member Role: PCP Address: Address: [address] [place] [address]- Care Team Related Persons Name: YONATAN SUSAN Address: home [address] [place] [address] Name: NANCIE WELLS Address: home [address] [place] [address]
--- OUTSIDE RECORDS SUMMARY | 2024-06-01 09:21 | XMS_ITS | Continuity of Care Document ---
Author Organization [facility] Address [address] [place] [address]- Care Team Providers Care Human Resources Hr Generalist Name Role Phone Chaparro Mann MD Primary Care Physician Encounter [facility] Date(s): 07/22/23 - 08/21/23 [facility] [address] [place] [address]- Attending Physician: Vikram Pierce Admitting Physician: Admtr, Vikram Referring Physician: Admtr, [id number] Allergies, Adverse Reactions, Alerts Substance Reaction Severity Status carbamazepine double vision. vertigo Acti ve Haldol Active Immunizations Given and Recorded Vaccine Date Status Refusal Reason hepatitis B adult vaccine 09/13/22 Recorded hepatitis B adult vaccine 08/13/22 Recorded [id number] 12y+ bivalent booster vax 07/13/22 Recorded SARS-CoV-2 [...] Gm, 11 Refills, Maintenance, 03/04/23 11:27:00 EDT, [facility]/pharmacy #[id number], Partial fill upon patient request if [...] mL, 11 Refills, Maintenance, 03/04/23 11:27:00 EDT, [place], [facility]/pharmacy #[id number], Partial fill upon patient request if [...] 11 Refills, Maintenance, 03/04/23 11:28:00 EDT, [place], [facility]/pharmacy #[id number], Partial fill upon patient request if the prescription is for a schedule... Start Date: 03/04/23 Status: Ordered metoprolol 25 mg oral tablet, extended release 25 mg, 1, tablet, By Mouth, Daily, # 90 tablet, Refills 3, Tot. Refills 3, Maintenance, 08/15/23 11:52:00 EST, Route to Pharmacy Electronically, 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 Hypothyroidism Confirmed Active Osteoporosis [...] Care Team Personnel Name: Vera Mccauley Position: [facility] Outreach Member Role: Lifetime Consulting Physician Name: Susan Smith RN Position: [facility] ED RN W/OE and Tasks Member Role: Primary Care Nurse Name: Juan Carlos Chapa RN Position: [facility] RN Member Role: Primary Care Nurse Name: Barbara Chapa RN Position: [facility] RN Member Role: Primary Care Nurse Name: Maryuri Cesar MD Position: [facility] Renal MD Member Role: Lifetime Consulting Physician Address: Address: [address] [place] [address] [place] [address]- Name: Gaye Mondragon RN Position: [facility] RN Supv Member Role: Primary Care Nurse Name: Qi Ordaz RN Position: [facility] SN RN Member Role: Primary Care Nurse Name: Chaparro Mann MD Position: [facility] Physician - Primary Care Member Role: PCP Address: Address: [address] [place] [address]- Care Team Related Persons Name: SUSAN TAM Address: home [address] [place] [address] Name: NANCIE WELLS Address: home [address] [place] [address]
--- OUTSIDE RECORDS SUMMARY | 2024-06-01 09:21 | XMS_ITS | Continuity of Care Document ---
Author Organization [facility] Address [address] [place] [address]- Care Team Providers Care Regroover Name Role Phone Chaparro Mann MD Primary Care Physician [phone] Encounter [facility] Date(s): 06/21/21 - 07/21/21 [facility] [address] [place] [address]- [place] Allergies, Adverse Reactions, Alerts Substance Reaction [...] 11/14/20 16:22:00 EST, Route to Pharmacy Electronically, [facility]/pharmacy #[id number], 162.5, cm, 10/27/20 15:17:00 EST, Height, [...] Active Diabetes mellitus - adult onset(Confirmed) Active Shop HandJuan Jose 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
--- OUTSIDE RECORDS SUMMARY | 2024-06-01 09:21 | XMS_ITS | Continuity of Care Document ---
Author Organization [facility] Address [address] [place] [address]- Care Team Providers Care Prepress Operator Name Role Phone Chaparro Mann MD Primary Care Physician Encounter [facility] Date(s): 02/27/23 - 04/06/23 [facility] [address] [place] [address]- Attending Physician: Connor Orozco MD Admitting Physician: Connor Orozco MD Allergies, Adverse Reactions, Alerts Substance Reaction Severity Status carbamazepine double vision. vertigo Acti ve Haldol Active Immunizations Given and Recorded Vaccine Date Status Refusal Reason hepatitis B adult vaccine 09/13/22 Recorded hepatitis B adult vaccine 08/13/22 Recorded [id number] 12y+ bivalent booster vax 07/13/22 Recorded SARS-CoV-2 [...] Refills, Maintenance, 03/04/23 11:27:00 EDT, [facility]/pharmacy #[id number], Partial fill upon patient request if [...] mL, 11 Refills, Maintenance, 03/04/23 11:27:00 EDT, [place], [facility]/pharmacy #[id number], Partial fill upon patient request if [...] Maintenance, 03/04/23 11:28:00 EDT, [place], [facility]/pharmacy #[id number], Partial fill upon patient request if the prescription is for a schedule... Start Date: 03/04/23 Status: Ordered metoprolol 25 mg oral tablet, extended release 25 mg, 1, tablet, By Mouth, Daily, # 90 tablet, Refills 3, Tot. Refills 3, Maintenance, 10/31/22 16:31:00 EST, Route to Pharmacy Electronically, [facility]/pharmacy #[id number], 161, cm, 08/15/22 8:56:00 EST, Height, [...] mellitus - adult onset Confirmed Active Manager Developmental-Johanny Villanueva Confirmed Active Hypothyroidism Confirmed Active Osteoporosis Confirmed Active Systolic dysfunction Confirmed Active PVCs (premature ventricular contractions) Confirmed Active Social History Social History Type Response Smoking Status Former smoker, quit more than 30 days ago; Other: quit 5 yrs ago 04/19/2015; entered on: 05/12/20 Sex Patient Care team information Care Team Personnel Name: Vera Mccauley Position: [facility] Outreach Member Role: Lifetime Consulting Physician Name: Susan Smith RN Position: [facility] ED RN W/OE and Tasks Member Role: Primary Care Nurse Name: Teri Salazar RN Position: [facility] RN Member Role: Primary Care Nurse Name: Juan Carlos Chapa RN Position: [facility] RN Member Role: Primary Care Nurse Name: Barbara Chapa RN Position: [facility] AMB Nurse Member Role: Primary Care Nurse Name: Gaye Mondragon RN Position: [facility] RN Supv Member Role: Primary Care Nurse Name: Qi Ordaz RN Position: [facility] SN RN Member Role: Primary Care Nurse Name: Chaparro Mann MD Position: [facility] Physician - Primary Care Member Role: PCP Address: Address: [address] [place] [address], [place] [address]- Care Team Related Persons Name: SUSAN TAM Address: [address] [place] [address] Name: NANCIE WELLS Address: home [address] [place] [address]
--- OUTSIDE RECORDS SUMMARY | 2024-06-01 09:21 | XMS_ITS | Continuity of Care Document ---
Author Organization [facility] Address [address] [place] [address]- Care Team Providers Care Gravity Prospector Name Role Phone Chaparro Mann MD Primary Care Physician Encounter [facility] Date(s): 09/11/22 - 10/11/[address] [email or web address] Attending Physician: Vikram Pierce Admitting Physician: Admtr, Ar8 Referring Physician: Admtr, Ar8 Allergies, Adverse Reactions, Alerts Substance Reaction Severity Status carbamazepine double vision. vertigo Acti ve Haldol Active Immunizations Given and Recorded Vaccine Date Status Refusal Reason hepatitis B adult vaccine 09/13/22 Recorded hepatitis B adult vaccine 08/13/22 Recorded [id number] 12y+ bivalent booster vax 07/13/22 Recorded SARS-CoV-2 [...] 10/31/22 16:31:00 EST, Route to Pharmacy Electronically, [facility]/pharmacy #[id number], 161, cm, 08/15/22 8:56:00 EST, Height, 51, kg, 07/28/21 7:20:00 EST, Dry Weight Start Date: 10/31/22 Stop Date: 10/26/23 Status: Ordered metoprolol 25 mg oral tablet, extended release 25 mg, 1, tablet, By Mouth, Daily, for 30 days, # 30 tablet, Refills 5, Tot. Refills 5, Hard Stop 10/31/22 16:31:00 EST, 05/04/22 16:31:00 EDT, Route to Pharmacy Electronically, [facility]/pharmacy #[id number], discontinue metoprolol tartrate, 162.56, cm, 03/23/22... 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 Machine OperatorJuan Jose Villanueva Confirmed Active Hypothyroidism Confirmed Active Osteoporosis Confirmed Active Systolic dysfunction Confirmed Active Underweight Confirmed Active PVCs (premature ventricular contractions) Confirmed Active Social History Social History Type Response Smoking Status Former smoker, quit more than 30 days ago; Other: quit 5 yrs ago 04/19/2015; entered on: 05/12/20 Sex Patient Care team information Care Team Personnel Name: Vera Mccauley Position: [facility] Outreach Member Role: Lifetime Consulting Physician Name: Susan Smith RN Position: [facility] ED RN W/OE and Tasks Member Role: Primary Care Nurse Name: Martin Lopez RN Position: [facility] RN Supv Member Role: Primary Care Nurse Name: Sarai Card RN Position: [facility] RN Member Role: Primary Care Nurse Name: Teri Salazar RN Position: [facility] RN Member Role: Primary Care Nurse Name: Juan Carlos Chapa RN Position: [facility] RN Member Role: Primary Care Nurse Name: Barbara Chapa RN Position: [facility] RN Member Role: Primary Care Nurse Name: Gaye Mondragon RN Position: [facility] RN Supv Member Role: Primary Care Nurse Name: Qi Ordaz RN Position: [facility] SN RN Member Role: Primary Care Nurse Name: Chaparro Mann MD Position: [facility] Physician (General Medicine) Member Role: PCP Address: Address: [address] [place] [address], [place] [address]- Care Team Related Persons Name: SUSAN TAM Address: home [address] [place] [address] Name: NANCIE WELLS Address: [address] [place] [address]
--- OUTSIDE RECORDS SUMMARY | 2024-06-01 09:21 | XMS_ITS | Continuity of Care Document ---
Author Organization [facility] Address [address] [place] [address]- Care Team Providers Care Grinder Mill Operator Name Role Phone Chaparro Mann MD Primary Care Physician [phone] [place] [facility] Date(s): 04/12/20 - 05/12/20 [facility] [address] [place] [address]- [facility] Allergies, Adverse Reactions, Alerts Substance Reaction Severity [...] 11/25/19 10:23:00 EDT, Route to Pharmacy Electronically, [facility]/pharmacy #[id number], 162, cm, 09/21/19 15:36:00 EST, Height, 48.8, [...] Active Diabetes mellitus - adult onset(Confirmed) Active Hospital 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
--- OUTSIDE RECORDS SUMMARY | 2024-06-01 09:21 | XMS_ITS | Continuity of Care Document ---
Author Organization [facility] Address [address] [place] [address]- Care Team Providers Care Kitchen Operator Name Role Phone Chaparro Mann MD Primary Care Physician ([facility])[phone] [place] [facility] [place] 12/25/23 - 03/29/24 [facility] [address] [place] [address]- Attending Physician: Ale Swain NP Admitting Physician: Brynn KERN, Ale Referring Physician: Chaparro Mann MD Allergies, Adverse Reactions, Alerts Substance Reaction Severity Status carbamazepine double vision. vertigo Acti ve Haldol Active Immunizations Given and Recorded Vaccine Date Status Refusal Reason hepatitis B adult vaccine 09/13/22 Recorded hepatitis B adult vaccine 08/13/22 Recorded [id number] 12y+ bivalent booster vax 07/13/22 Recorded SARS-CoV-2 [...] mL, 11 Refills, Maintenance, 03/04/23 11:27:00 EDT, [place], [facility]/pharmacy #[id number], Partial fill [...] Diabetes mellitus - adult onset Confirmed Active Epitaxial Reactor Technician-Johanny Villanueva Confirmed Active Hypothyroidism Confirmed Active Osteoporosis Confirmed Active Systolic dysfunction Confirmed Active PVCs (premature ventricular contractions) Confirmed Active Social History Social History Type Response Smoking Status Former smoker, quit more than 30 days ago; Other: quit 5 yrs ago 04/19/2015; entered on: 05/12/20 Sex Patient Care team information Care Team Personnel Name: Vera Mccauley Position: [facility] Outreach Member Role: Lifetime Consulting Physician Name: Susan Smith RN Position: [facility] ED RN W/OE and Tasks Member Role: Primary Care Nurse Name: Martin Lopez RN Position: [facility] SN RN Member Role: Primary Care Nurse Name: Teri Salazar RN Position: [facility] SN RN Member Role: Primary Care Nurse Name: Juan Carlos Chapa RN Position: [facility] RN Member Role: Primary Care Nurse Name: Maryuri Cesar MD Position: [facility] Renal MD Member Role: Lifetime Consulting Physician Address: Address: [address] [place] [address] [facility] [address] Name: Gaye Mondragon RN Position: [facility] RN Supv Member Role: Primary Care Nurse Name: Qi Ordaz RN Position: S RN Member Role: Primary Care Nurse Name: Chaparro Mann MD Position: [facility] Physician - Primary Care Member Role: PCP Address: Address: [address] [place] [address]- Care Team Related Persons Name: SUSAN TAM Address: home [address] [place] [address] Name: NANCIE WELLS Address: home [address] [place] [address]
--- OUTSIDE RECORDS SUMMARY | 2024-06-01 09:21 | XMS_ITS | Continuity of Care Document ---
Author Organization [facility] Address [address] [place] [address]- Care Team Providers Care Project Manager/Design Manager Name Role Phone Chaparro Mann MD Primary Care Physician [phone] Encounter [facility] Date(s): 07/31/19 - 09/13/19 [facility] [address] [place] [address]- [facility] Attending Physician: Not on Staff, Attending MD [...] Active Diabetes mellitus - adult onset(Confirmed) Active Registered Nurse Nursery-Johanny Villanueva(Confirmed) Active Hypothyroidism(Confirmed) Active Osteoporosis(Confirmed) Active Social History Social History Type Response Smoking Status Former smoker, quit more than 30 days ago entered on: 05/12/19 Sex
--- OUTSIDE RECORDS SUMMARY | 2024-06-01 09:21 | XMS_ITS | Continuity of Care Document ---
Author Organization [facility] Address [address] [place] [address]- Care Team Providers Care Card Tape Converter Operator Name Role Phone Chaparro Mann MD Primary Care Physician Encounter [facility] Date(s): 11/28/20 - 12/28/[address] [address] Attending Physician: Admbasil, Vikram Admitting [...] to Pharmacy Electronically, [facility]/pharmacy #[id number], Partial fill upon patient request, 159, cm, [...] Active Diabetes mellitus - adult onset(Confirmed) Active Life Sciences Director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
--- OUTSIDE RECORDS SUMMARY | 2024-06-01 09:21 | XMS_ITS | Continuity of Care Document ---
Author Organization [facility] Address [address] [place] [address]- Care Team Providers Care Carpet Installer Helper Name Role Phone Chaparro Mann MD Primary Care Physician [place] [facility] [place] 05/26/20 - 06/25/20 [place] [address]- [facility] Attending Physician: Admtr, Joshua8 Admitting [...] 11/25/19 10:23:00 EDT, Route to Pharmacy Electronically, [facility]/pharmacy #[id number], 162, cm, 09/21/19 15:36:00 EST, Height, [...] Active Diabetes mellitus - adult onset(Confirmed) Active Puttier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
--- OUTSIDE RECORDS SUMMARY | 2024-06-01 09:21 | XMS_ITS | Continuity of Care Document ---
Author Organization [facility] Address [address] [place] [address]- Care Team Providers Care Flight Attendant/Inflight Supervisor Name Role Phone Chaparro Mann MD Primary Care Physician [phone] Encounter [facility] Date(s): 07/31/19 - 11/20/19 [facility] [address] [place] [address]- Attending Physician: Mark Patel MD Admitting Physician: [...] 11/11/19 14:02:00 EST, Route to Pharmacy Electronically, 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
--- OUTSIDE RECORDS SUMMARY | 2024-06-01 09:21 | XMS_ITS | Continuity of Care Document ---
Author Organization [facility] Address [address] [place] [address]- Care Team Providers Care It Training Specialist Name Role Phone Chaparro Mann MD Primary Care Physician [phone] Encounter [facility] Date(s): 05/12/20 - 06/11/20 [facility] [address] [place] [address]- [facility] Attending Physician: Admtr, Joshua8 Admitting Physician: Admtr, [...] 11/25/19 10:23:00 EDT, Route to Pharmacy Electronically, [facility]/pharmacy #[id number], 162, cm, 09/21/19 15:36:00 [...] Active Diabetes mellitus - adult onset(Confirmed) Active Adjunct Professor Of Law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
--- OUTSIDE RECORDS SUMMARY | 2024-06-01 09:21 | XMS_ITS | Continuity of Care Document ---
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
--- OUTSIDE RECORDS SUMMARY | 2024-06-01 09:21 | XMS_ITS | Continuity of Care Document ---
Author Organization [facility] Address [address] [place] [address]- Care Team Providers Care Drug Inspector Name Role Phone Chaparro Mann MD Primary Care Physician [phone] 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
--- OUTSIDE RECORDS SUMMARY | 2024-06-01 09:21 | XMS_ITS | Continuity of Care Document ---
Author Organization [facility] ter Address [address] [place] [address]- Care Team Providers Care Building Maintenance Engineer Name Role Phone Chaparro Mann MD Primary Care Physician Encounter [facility] [place] Date(s): 11/22/21 - 01/21/[address] [address] Attending Physician: Johanny Terry MD Admitting Physician: Johanny Terry MD Referring Physician: Johanny Terry MD Allergies, Adverse Reactions, Alerts Substance Reaction [...] a day, # 90 tablet, 3 Refills, [email or web address] ST[facility] [id number], 162.5, cm, 10/26/21 12:37:00 EST, Height, 51, [...] Diabetes mellitus - adult onset(Confirmed) Active Manager ResourceJuan Jose 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
--- OUTSIDE RECORDS SUMMARY | 2024-06-01 09:21 | XMS_ITS | Continuity of Care Document ---
Author Organization [facility] Address [address] [place] [address]- Care Team Providers Care Machine Binder Stripper Name Role Phone Chaparro Mann MD Primary Care Physician Encounter [facility] [place] Date(s): 03/05/24 - 04/04/24 [facility] [address] [place] [address]- Attending Physician: Vikram Pierce Admitting Physician: Vikram Pierce Referring Physician: Vikram Pierce Allergies, Adverse Reactions, Alerts Substance Reaction Severity Status carbamazepine double vision. vertigo Acti ve Haldol Active Immunizations Given and Recorded Vaccine Date Status Refusal Reason hepatitis B adult vaccine 09/13/22 Recorded hepatitis B adult vaccine 08/13/22 Recorded [id number] 12y+ bivalent booster vax 07/13/22 Recorded SARS-CoV-2 [...] 11 Refills, Maintenance, 03/04/23 11:27:00 EDT, [facility]/pharmacy #[id number], Partial fill upon patient request [...] mL, 11 Refills, Maintenance, 03/04/23 11:27:00 EDT, [place], [facility]/pharmacy #[id number], Partial fill upon patient request [...] Refills, Maintenance, 03/04/23 11:28:00 EDT, [place], [facility]/pharmacy #[id number], Partial fill upon patient request if the prescription is for a schedule... Start Date: 03/04/23 Status: Ordered metoprolol 25 mg oral tablet, extended release 25 mg, 1, tablet, By Mouth, Daily, # 90 tablet, Refills 3, Tot. Refills 3, Maintenance, 08/15/23 11:52:00 EST, Route to Pharmacy Electronically, [facility]/pharmacy #[id number], 161, cm, 07/22/23 12:23:00 EST, [...] Diabetes mellitus - adult onset Confirmed Active Poly Area Supervisor-Johanny Villanueva Confirmed Active Hypothyroidism Confirmed Active Osteoporosis Confirmed Active Systolic dysfunction Confirmed Active PVCs (premature ventricular contractions) Confirmed Active Social History Social History Type Response Smoking Status Former smoker, quit more than 30 days ago; Other: quit 5 yrs ago 04/19/2015; entered on: 05/12/20 Sex Patient Care team information Care Team Personnel Name: Vera Mccauley Position: [facility] Outreach Member Role: Lifetime Consulting Physician Name: Susan Smith RN Position: [facility] ED RN W/OE and Tasks Member Role: Primary Care Nurse Name: Martin Lopez RN Position: [facility] SN RN Member Role: Primary Care Nurse Name: Teri Salazar RN Position: [facility] SN RN Member Role: Primary Care Nurse Name: Juan Carlos Chapa RN Position: [facility] RN Member Role: Primary Care Nurse Name: Maryuri Cesar MD Position: [facility] Renal MD Member Role: Lifetime Consulting Physician Address: Address: [address] [place] [address] [facility] [address] Name: Gaye Mondragon RN Position: [facility] RN Supv Member Role: Primary Care Nurse Name: Qi Ordaz RN Position: S RN Member Role: Primary Care Nurse Name: Chaparro Mann MD Position: [facility] Physician - Primary Care Member Role: PCP Address: Address: [address] [place] [address]- Care Team Related Persons Name: SUSAN TAM Address: home [address] [place] [address] Name: NANCIE WELLS Address: home [address] [place] [address]
--- OUTSIDE RECORDS SUMMARY | 2024-06-01 09:21 | XMS_ITS | Continuity of Care Document ---
Author Organization [facility] Address [address] [place] [address]- Care Team Providers Care Waste Examiner Name Role Phone Chaparro Mann MD Primary Care Physician Encounter [facility] [place] Date(s): 12/07/20 - 01/06/21 [facility] [address] [place] [id number] Attending Physician: AdmVikram gracia Admitting Physician: Admtr, [...] Route to Pharmacy Electronically, [facility]/pharmacy #[id number], Partial fill upon patient request, 159, cm, [...] 16:22:00 EST, Route to Pharmacy Electronically, [facility]/pharmacy #[id number], 162.5, cm, 10/27/20 15:17:00 EST, [...] Active Diabetes mellitus - adult onset(Confirmed) Active 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
--- OUTSIDE RECORDS SUMMARY | 2024-06-01 09:21 | XMS_ITS | Continuity of Care Document ---
Author Organization [facility] Address [address] [place] [address]- Care Team Providers Care Continuous Improvement Lead Name Role Phone Chaparro Mann MD Primary Care Physician [phone] Encounter [facility] [place] Date(s): 03/28/20 - 04/27/20 [facility] [address] [place] [address]- [facility] Allergies, Adverse Reactions, Alerts Substance Reaction [...] 11/25/19 10:23:00 EDT, Route to Pharmacy Electronically, [facility]/pharmacy #[id number], 162, cm, 09/21/19 15:36:00 EST, Height, 48.8, [...] Active Diabetes mellitus - adult onset(Confirmed) Active Process Control SupervisorJuan Jose Villanueva(Confirmed) Active Hypothyroidism(Confirmed) Active Osteoporosis(Confirmed) Active Systolic dysfunction(Confirmed) Active PVCs (premature ventricular contractions)(Confirmed) Active Social History Social History Type Response Smoking Status Former smoker, quit more than 30 days ago entered on: 05/12/19 Sex
--- OUTSIDE RECORDS SUMMARY | 2024-06-01 09:22 | XMS_ITS | Continuity of Care Document ---
Author Organization [facility] ter Address [address] [place] [address]- Care Team Providers Care Invoice Control Clerk Name Role Phone Chaparro Mann MD Primary Care Physician Encounter [facility] [place] Date(s): 09/24/19 - 12/31/[address] [address] [facility] Attending Physician: Joann Raines NP Admitting Physician: Joann Raines NP Referring Physician: Joann Raines NP Allergies, Adverse Reactions, Alerts Substance Reaction Severity [...] 11/25/19 10:23:00 EDT, Route to Pharmacy Electronically, [facility]/pharmacy #[id number], 162, cm, 09/21/19 15:36:00 EST, Height, [...] Active Diabetes mellitus - adult onset(Confirmed) Active Ad Operations Associate-Johanny Villanueva(Confirmed) Active Hypothyroidism(Confirmed) Active Osteoporosis(Confirmed) Active Social History Social History Type Response Smoking Status Former smoker, quit more than 30 days ago entered on: 05/12/19 Sex
--- OUTSIDE RECORDS SUMMARY | 2024-06-01 09:22 | XMS_ITS | Continuity of Care Document ---
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
--- OUTSIDE RECORDS SUMMARY | 2024-06-01 09:22 | XMS_ITS | Continuity of Care Document ---
Author Organization [facility] Address [address] [place] [address]- Care Team Providers Care Civil Estimator Name Role Phone Chaparro Mann MD Primary Care Physician Encounter [facility] [place] [place] Date(s): 02/23/21 - 03/25/21 [facility] [address] [place] [id number] Allergies, Adverse Reactions, Alerts Substance Reaction [...] 11/14/20 16:22:00 EST, Route to Pharmacy Electronically, [facility]/pharmacy #[id number], 162.5, cm, 10/27/20 15:17:00 EST, [...] Active Diabetes mellitus - adult onset(Confirmed) Active 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
--- OUTSIDE RECORDS SUMMARY | 2024-06-01 09:22 | XMS_ITS | Continuity of Care Document ---
Author Organization [facility] ter Address [address] [place] [address]- Care Team Providers Care Notcher Name Role Phone Chaparro Mann MD Primary Care Physician [phone] [place] [facility] [place] 07/20/20 - 09/08/[address] [address] Attending Physician: Otto Gamino MD Admitting [...] 08/16/20 15:10:00 EST, Route to Pharmacy Electronically, [facility]/pharmacy #[id number], Partial fill upon patient request, 159, cm, [...] Active Diabetes mellitus - adult onset(Confirmed) Active 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
--- OUTSIDE RECORDS SUMMARY | 2024-06-01 09:22 | XMS_ITS | Continuity of Care Document ---
Author Organization [facility] Address [address] [place] [address]- Care Team Providers Care Network Development Coordinator Name Role Phone Chaparro Mann MD Primary Care Physician [place] [facility] [place] [facility] [place]/03[place]20 - 06/02/20 [facility] [address] [place] [address]- [facility] Allergies, Adverse Reactions, Alerts Substance Reaction Severity [...] 11/25/19 10:23:00 EDT, Route to Pharmacy Electronically, [facility]/pharmacy #[id number], 162, cm, 09/21/19 15:36:00 EST, Height, 48.8, [...] Active Diabetes mellitus - adult onset(Confirmed) Active 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
--- OUTSIDE RECORDS SUMMARY | 2024-06-01 09:22 | XMS_ITS | Continuity of Care Document ---
Author Organization [facility] Address [address] [place] [address]- Care Team Providers Care Senior Web Designer Name Role Phone Chaparro Mann MD Primary Care Physician [place] [facility] [place](s): 09/22/21 - 10/22/21 [facility] [address] [place] [address]- [place] Allergies, Adverse Reactions, Alerts Substance Reaction [...] 11/14/20 16:22:00 EST, Route to Pharmacy Electronically, [facility]/pharmacy #[id number], 162.5, cm, 10/27/20 15:17:00 [...] Active Diabetes mellitus - adult onset(Confirmed) Active 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
[2024-06-01 11:04] VITALS: BP 105/75; PULSE 83; RESP 16; TEMP 36.3; O2SAT 96
[2024-06-01] MEDS: Lactated Ringers 500 ML 50 ML IV (11:15)
[2024-06-01] MEDS: Tetracaine HCl/PF 0.5% Oph Sol 4 ML DROPS 1 DROP EYE-LEFT (11:16)
[2024-06-01] MEDS: Cyclopentolate 1 % Ophth Sol 2 ML DRPBTL 1 DROP EYE-LEFT ×3 (11:18→11:26)
[2024-06-01] MEDS: Tropicamide 1 % Ophth Sol 3 ML BTL 1 DROP EYE-LEFT ×3 (11:20→11:27)
[2024-06-01] MEDS: Ketorolac Tromethamine 0.5% Op 10 ML DROPS 1 DROP EYE-LEFT ×3 (11:21→11:27)
[2024-06-01] MEDS: Phenylephrine HCL 2.5% Oph SoL 2 ML BOTTLE 1 DROP EYE-LEFT ×3 (11:22→11:28)
--- NOTE | 2024-06-01 11:45 | P.CONAN_ITS ---
Documented by User: Haley Francis NP 05/28/24 14:41 HPI - Anesthesia Eval Consult details Narrative: 74yo F for Left Cataract Extraction IOL Insertion No previous cataract on record PMFSH Past Medical History Medical History (Updated 05/27/24 @ 09:38 by Sophia Mary RN) PVC (premature ventricular contraction) COPD (chronic obstructive pulmonary disease) [place] ([place] of hearing) Cardiomyopathy Skin cancer Arthritis Diabetes Hypothyroid Chronic renal insufficiency Congenital solitary kidney Subdural hematoma Decreased cardiac ejection fraction Elevated cholesterol HTN (hypertension) Surgical History Surgical History (Updated 06/01/24 @ 10:48 by Elke Lopez RN) Hx of cardiac catheterization Hx of vitrectomy H/O colonoscopy History of evacuation of hematoma History of cardiac radiofrequency ablation (RFA) Social History Social History Housing Other:: rents a room in a condo Are you a primary district manager primary care sales to a significant other at home: No Do you presently have visiting nurse or other home services: No Patient Tobacco Use Status: Former Tobacco user Tobacco use type: Cigarette Years Smoked: 47 Use of substances other than those prescribed or required for medical reasons: No Have you been hit, kicked, punched, or otherwise hurt by someone within the past year? If so, by whom?: No Spiritual Healthcare Practices: none Buddhist Healthcare Practices: none Cultural Healthcare Practices: none Are you DNR?: Yes Advance Directives Information Provided: Yes (will bring copy DOS) Advance Directives on File: No Recently lost weight without trying: No Eating poorly because of decreased appetite: No Nutrition Risks: No Nutritional Risk FDLMP: N/A Poor oral hygiene: No (upper full & lower partial denture) Meds Allergies Allergy/AdvReac Type Severity Reaction Status Date / Time carbamazepine AdvReac Intermediate reac. to Verified 05/26/24 15:32 generic-lack of balance/double vision-brand name ok haloperidol [From Haldol] AdvReac Intermediate extreme Verified 05/26/24 15:32 restlessness/eyelids sag Home Medications ?Medication ?Instructions ?Recorded ?Confirmed ?Last Taken ?Type albuterol sulfate 90 mcg/actuation 2 puff inhalation Q4-6H PRN 05/27/24 05/27/24 Unknown History aerosol inhaler (Ventolin HFA) Shortness Of Breath amlodipine 5 mg tablet 5 mg PO BEDTIME 05/27/24 05/27/24 Unknown History aripiprazole 15 mg tablet (Abilify) 15 mg PO BEDTIME 05/27/24 05/27/24 Unknown History atorvastatin 10 mg tablet 10 mg PO BEDTIME 05/27/24 05/27/24 Unknown History azelastine 137 mcg (0.1 %) nasal 2 spray intranasal BID PRN Nasal 05/27/24 05/27/24 Unknown History spray Congestion bupropion HCl 200 mg tablet,12 hr 200 mg PO QAM 05/27/24 05/27/24 06/01/24 History sustained-release calcifediol 30 mcg capsule,24 30 mcg PO DAILY 05/27/24 05/27/24 Unknown History hr,extended release (Rayaldee) carbamazepine 200 mg 200 mg PO BID 05/27/24 05/27/24 06/01/24 History tablet,extended release,12 hr (Tegretol XR) coenzyme Q10 100 mg capsule (Co 100 mg PO QAM 05/27/24 05/27/24 Unknown History Q-10) fluticasone fur. 100 mcg-umeclid 1 ea inhalation DAILY 05/27/24 05/27/24 06/01/24 History 62.5 mcg-vilant 25 mcg inhalat.powder (Trelegy Ellipta) levothyroxine 112 mcg tablet 112 mcg PO QAM 05/27/24 05/27/24 06/01/24 History (Synthroid) losartan 25 mg tablet 25 mg PO DAILY 05/27/24 05/27/24 Unknown History metoprolol succinate 25 mg 25 mg PO BEDTIME 05/27/24 05/27/24 Unknown History tablet,extended release 24 hr risperidone 1 mg tablet 1 mg PO BEDTIME 05/27/24 05/27/24 Unknown History sodium bicarbonate 650 mg tablet 650 mg PO BID 05/27/24 05/27/24 Unknown History vit C 250 mg-vit E 90 mg-zinc 40 1 tab PO BID 05/27/24 05/27/24 Unknown History mg-copper 1 [id number]-ekjwlj-gqydow capsule (PreserVision AREDS-2) Exam Height,Weight and Vital Signs: Height 5 ft 3 in Weight 46.72 kg Assessment and Plan Assessment Anesthesia Assessment: Chart Reviewed Documented by User: Celsa Mares DO 06/01/24 12:06 HPI - Anesthesia Eval Consult details Narrative: 74yo F for Left Cataract Extraction IOL Insertion No previous cataract on record. DNR/DNI. [facility] Past Medical History Medical History (Updated 05/27/24 @ 09:38 by Sophia Mary RN) PVC (premature ventricular contraction) COPD (chronic obstructive pulmonary disease) [place] (hard of hearing) Cardiomyopathy Skin cancer Arthritis Diabetes Hypothyroid Chronic renal insufficiency Congenital solitary kidney Subdural hematoma Decreased cardiac ejection fraction Elevated cholesterol HTN (hypertension) Family History Family history of problems with anesthesia: No Surgical History Surgical History (Updated 06/01/24 @ 10:48 by Elke Lopez RN) Hx of cardiac catheterization Hx of vitrectomy H/O colonoscopy History of evacuation of hematoma History of cardiac radiofrequency ablation (RFA) History of Problems with Anesthesia: No Social History Social History Housing Other:: rents a room in a condo Are you a primary district manager primary care sales to a significant other at home: No Do you presently have visiting nurse or other home services: No Patient Tobacco Use Status: Former Tobacco user Tobacco use type: Cigarette Years Smoked: 47 Use of substances other than those prescribed or required for medical reasons: No Have you been hit, kicked, punched, or otherwise hurt by someone within the past year? If so, by whom?: No Spiritual Healthcare Practices: none Buddhist Healthcare Practices: none Cultural Healthcare Practices: none Are you DNR?: Yes Advance Directives Information Provided: Yes (will bring copy DOS) Advance Directives on File: No Recently lost weight without trying: No Eating poorly because of decreased appetite: No Nutrition Risks: No Nutritional Risk FDLMP: N/A Poor oral hygiene: No (upper full & lower partial denture) Meds Allergies Allergy/AdvReac Type Severity Reaction Status Date / Time carbamazepine AdvReac Intermediate reac. to Verified 05/26/24 15:32 generic-lack of balance/double vision-brand name ok haloperidol [From Haldol] AdvReac Intermediate extreme Verified 05/26/24 15:32 restlessness/eyelids sag Home Medications ?Medication ?Instructions ?Recorded ?Confirmed ?Last Taken ?Type albuterol sulfate 90 mcg/actuation 2 puff inhalation Q4-6H PRN 05/27/24 05/27/24 Unknown History aerosol inhaler (Ventolin HFA) Shortness Of Breath amlodipine 5 mg tablet 5 mg PO BEDTIME 05/27/24 05/27/24 Unknown History aripiprazole 15 mg tablet (Abilify) 15 mg PO BEDTIME 05/27/24 05/27/24 Unknown History atorvastatin 10 mg tablet 10 mg PO BEDTIME 05/27/24 05/27/24 Unknown History azelastine 137 mcg (0.1 %) nasal 2 spray intranasal BID PRN Nasal 05/27/24 05/27/24 Unknown History spray Congestion bupropion HCl 200 mg tablet,12 hr 200 mg PO QAM 05/27/24 05/27/24 06/01/24 History sustained-release calcifediol 30 mcg capsule,24 30 mcg PO DAILY 05/27/24 05/27/24 Unknown History hr,extended release (Rayaldee) carbamazepine 200 mg 200 mg PO BID 05/27/24 05/27/24 06/01/24 History tablet,extended release,12 hr (Tegretol XR) coenzyme Q10 100 mg capsule (Co 100 mg PO QAM 05/27/24 05/27/24 Unknown History Q-10) fluticasone fur. 100 mcg-umeclid 1 ea inhalation DAILY 05/27/24 05/27/24 06/01/24 History 62.5 mcg-vilant 25 mcg inhalat.powder (Trelegy Ellipta) levothyroxine 112 mcg tablet 112 mcg PO QAM 05/27/24 05/27/24 06/01/24 History (Synthroid) losartan 25 mg tablet 25 mg PO DAILY 05/27/24 05/27/24 Unknown History metoprolol succinate 25 mg 25 mg PO BEDTIME 05/27/24 05/27/24 Unknown History tablet,extended release 24 hr risperidone 1 mg tablet 1 mg PO BEDTIME 05/27/24 05/27/24 Unknown History sodium bicarbonate 650 mg tablet 650 mg PO BID 05/27/24 05/27/24 Unknown History vit C 250 mg-vit E 90 mg-zinc 40 1 tab PO BID 05/27/24 05/27/24 Unknown History mg-copper 1 rp-ihthyy-hrenrw capsule (PreserVision AREDS-2) Exam Exam Date and Time: 06/01/24 1145 Height,Weight and Vital Signs: Height 5 ft 3 in Weight 46.72 kg Vital Signs Temperature 97.4 F 06/01/24 11:04 Pulse Rate 83 06/01/24 11:04 Respiratory Rate 16 06/01/24 11:04 Blood Pressure 105/75 06/01/24 11:04 Pulse Oximetry 96 06/01/24 11:04 Oxygen Delivery Method Room Air 06/01/24 11:04 Temperature 97.4 F 06/01/24 11:04 Pulse Rate 83 06/01/24 11:04 Respiratory Rate 16 06/01/24 11:04 Blood Pressure 105/75 06/01/24 11:04 Pulse Oximetry 96 06/01/24 11:04 Oxygen Delivery Method Room Air 06/01/24 11:04 Airway Mallampati Class: II TM Dist: >3cm Neck ROM: Limited Denture: Upper Partial: Lower Heart: S1S2 Lungs: CTAB Assessment and Plan Assessment Anesthesia Assessment: Anesthesia Plan Discussed and Chart Reviewed Final Anesthetic Review Family History of Problems with Anesthesia: No History of Problems with Anesthesia: No NPO: Yes ASA Class: III Final Preanesthetic Review: No Changes in Pt Med Stat, Meds/Allgs Chart Reviewed, Consent Obtained/Reviewed, Anes Risks/Benef Reviewed and DNR Form (If Appl.) (DNR/DNI suspended during jeff-operative period until discharge from PACU) Patient Risk: Intermediate Procedure Risk: Low Anesthetic Plan Anesthetic Plan: MAC: and Agree w/ Assess. and Plan Disposition: Standard PACU
--- NOTE | 2024-06-01 12:10 | MHC.SHP ---
Pre-Procedural Eval Section A - 24 Hr Update-Section A only Date of Service: 06/01/24 The patient is an INPATIENT: No Changes since office visit: No Cold of Flu in the past 2 weeks, No New Medical Problems, No Changes in Medication and No Patient answered all questions The patient has been examined within 24 hours of the surgical procedure. The History & Physical has been completed within 30 days and I have reviewed it.: Yes Section B - Complete if H&P > 30 days Chief Complaint: Age-related nuclear cataract, left eye Allergies: Allergies Allergy/AdvReac Type Severity Reaction Status Date / Time carbamazepine AdvReac Intermediate reac. to Verified 05/26/24 15:32 generic-lack of balance/double vision-brand name ok haloperidol [From Haldol] AdvReac Intermediate extreme Verified 05/26/24 15:32 restlessness/eyelids sag Plan Diagnosis/Plan: Unchanged I have reviewed the history and physical and performed a pertinent physical examination on my patient. No changes have occurred unless specified. Time Spent With Patient Time: Total time managing care of this patient today ____ minutes.
--- NOTE | 2024-06-01 12:11 | HO.PNOPHT ---
Ophthalmology Procedure Procedure Date of Service: 06/01/24 Ophthalmology Viscoelastic: Healon Duet Dual Pack Pro Ophthalmology Lenses: IOL Acrysof MP - MA60AC (20.5) Procedure Notes: PREOPERATIVE DIAGNOSIS: Decreased visual acuity left eye secondary to cataract POSTOPERATIVE DIAGNOSIS: Same PROCEDURE: Left cataract extraction with intraocular lens insertion SURGEON: Jamar Khan M.D. ANESTHESIA: Topical/MAC ESTIMATED BLOOD LOSS: None COMPLICATIONS: None After obtaining informed consent, the patient was brought to the operation room suite and placed in the supine position. After adequate sedation per anesthesia, topical drops of Tetracaine were given to the left eye. The eye was then prepped and draped in the usual sterile fashion. The operating room microscope was then positioned over the operative eye and a lid speculum placed. A paracentesis was created. Viscoelastic was then instilled into the anterior chamber. A three plane incision was then created temporally, utilizing a 2.85 mm keratome. Capsulotomy forceps were then utilized to create a circular tear capsulotomy. Hydrodissection and hydrodelineation were carried out until adequate mobilization of the nucleus occurred. Phacoemulsification was then utilized to remove the dense central nucleus followed by removal of the cortical material utilizing the automated aspiration irrigation unit. Viscoat elastic was instilled into the posterior capsular bag followed by placement of a posterior chamber intraocular lens without difficulty. The residual Viscoat elastic was then removed utilizing the automated IA machine. The wound was check and found to be watertight. The patient tolerated the procedure well and the lid speculum was removed. Intracameral injection of Vigamox 0.1 mL followed by a subtenon injection of Kenalog-40 0.2 mL were administered. The patient will be seen in the a.m.
[2024-06-01 12:41] VITALS: BP 131/70; PULSE 78; RESP 16; TEMP 37.1; O2SAT 99
== END 2024-06-01 12:51 | disposition home or self-care (01) ==
PROVIDERS: PCP Internal Medicine; Visit Provider Ophthalmology
PROC: (CPT 66985; principal; 2024-06-01 12:00)
DX: H25.12 Age-related nuclear cataract, left eye (principal); H54.7 Unspecified visual loss; H35.3220 Exudative age-related macular degeneration, left eye, stage unspecified; H35.3132 Nonexudative age-related macular degeneration, bilateral, intermediate dry stage; H18.413 Arcus senilis, bilateral; I12.9 Hypertensive chronic kidney disease with stage 1 through stage 4 chronic kidney disease, or unspecified chronic kidney disease; N18.1 Chronic kidney disease, stage 1; E78.00 Pure hypercholesterolemia, unspecified; E03.9 Hypothyroidism, unspecified; J44.9 Chronic obstructive pulmonary disease, unspecified; Z79.51 Long term (current) use of inhaled steroids; Z79.899 Other long term (current) drug therapy; Z88.8 Allergy status to other drugs, medicaments and biological substances; Z87.891 Personal history of nicotine dependence
CPT/HCPCS: 66984; J2250; J3301; V2630

== ENCOUNTER 2024-06-15 06:02 | Day surgery (SDC) | payer MEDICARE, MEDICAID, SELFPAY ==
[2024-05-27 08:35] VITALS: BMI 18.2
--- NOTE | 2024-06-11 14:25 | P.CONAN_ITS ---
Documented by User: Haley Francis NP 06/11/24 14:26 HPI - Anesthesia Eval Consult details Narrative: 74yo F for Right Cataract Extraction IOL Insertion Left eye 05/2024: Midaz 2 PMFSH Past Medical History Medical History PVC (premature ventricular contraction) COPD (chronic obstructive pulmonary disease) [place] (hard of hearing) Cardiomyopathy Skin cancer Arthritis Diabetes Hypothyroid Chronic renal insufficiency Congenital solitary kidney Subdural hematoma Decreased cardiac ejection fraction Elevated cholesterol HTN (hypertension) Family History Family history of problems with anesthesia: No Surgical History Surgical History Hx of cardiac catheterization Hx of vitrectomy H/O colonoscopy History of evacuation of hematoma History of cardiac radiofrequency ablation (RFA) History of Problems with Anesthesia: No Social History Social History Housing Other:: rents a room in a condo Are you a primary healthcare science specialist to a significant other at home: No Do you presently have visiting nurse or other home services: No Patient Tobacco Use Status: Former Tobacco user Tobacco use type: Cigarette Years Smoked: 47 Use of substances other than those prescribed or required for medical reasons: No Have you been hit, kicked, punched, or otherwise hurt by someone within the past year? If so, by whom?: No Spiritual Healthcare Practices: none Bahai Healthcare Practices: none Cultural Healthcare Practices: none Are you DNR?: No Advance Directives on File: No Recently lost weight without trying: No Eating poorly because of decreased appetite: No Nutrition Risks: No Nutritional Risk Patient : No (N/A) FDLMP: N/A : No (N/A) Poor oral hygiene: No (upper full & lower partial denture) Meds Allergies Allergy/AdvReac Type Severity Reaction Status Date / Time carbamazepine AdvReac Intermediate reac. to Verified 05/26/24 15:32 generic-lack of balance/double vision-brand name ok haloperidol [From Haldol] AdvReac Intermediate extreme Verified 05/26/24 15:32 restlessness/eyelids sag Home Medications ?Medication ?Instructions ?Recorded ?Confirmed ?Last Taken ?Type albuterol sulfate 90 mcg/actuation 2 puff inhalation Q4-6H PRN 05/27/24 05/27/24 Unknown History aerosol inhaler (Ventolin HFA) Shortness Of Breath amlodipine 5 mg tablet 5 mg PO BEDTIME 05/27/24 05/27/24 06/14/24 History aripiprazole 15 mg tablet (Abilify) 15 mg PO BEDTIME 05/27/24 05/27/24 Unknown History atorvastatin 10 mg tablet 10 mg PO BEDTIME 05/27/24 05/27/24 Unknown History azelastine 137 mcg (0.1 %) nasal 2 spray intranasal BID PRN Nasal 05/27/24 Unknown History spray Congestion bupropion HCl 200 mg tablet,12 hr 200 mg PO QAM 05/27/24 05/27/24 06/15/24 History sustained-release calcifediol 30 mcg capsule,24 30 mcg PO DAILY 05/27/24 05/27/24 Unknown History hr,extended release (Rayaldee) carbamazepine 200 mg 200 mg PO BID 05/27/24 05/27/24 06/15/24 History tablet,extended release,12 hr (Tegretol XR) coenzyme Q10 100 mg capsule (Co 100 mg PO QAM 05/27/24 05/27/24 Unknown History Q-10) fluticasone fur. 100 mcg-umeclid 1 ea inhalation DAILY 05/27/24 05/27/24 06/15/24 History 62.5 mcg-vilant 25 mcg inhalat.powder (Trelegy Ellipta) levothyroxine 112 mcg tablet 112 mcg PO QAM 05/27/24 05/27/24 06/15/24 History (Synthroid) losartan 25 mg tablet 25 mg PO DAILY 05/27/24 05/27/24 Unknown History metoprolol succinate 25 mg 25 mg PO BEDTIME 05/27/24 05/27/24 06/14/24 History tablet,extended release 24 hr risperidone 1 mg tablet 1 mg PO BEDTIME 05/27/24 05/27/24 Unknown History sodium bicarbonate 650 mg tablet 650 mg PO BID 05/27/24 05/27/24 Unknown History vit C 250 mg-vit E 90 mg-zinc 40 1 tab PO BID 05/27/24 05/27/24 Unknown History mg-copper 1 hc-lhfyat-jyzats capsule (PreserVision AREDS-2) Exam Height,Weight and Vital Signs: Height 5 ft 3 in Weight 46.72 kg Assessment and Plan Assessment Anesthesia Assessment: Chart Reviewed Final Anesthetic Review Family History of Problems with Anesthesia: No History of Problems with Anesthesia: No Documented by User: Madeline Soliman MD 06/15/24 08:35 PMFSH Past Medical History Medical History PVC (premature ventricular contraction) COPD (chronic obstructive pulmonary disease) [place] (hard of hearing) Cardiomyopathy Skin cancer Arthritis Diabetes Hypothyroid Chronic renal insufficiency Congenital solitary kidney Subdural hematoma Decreased cardiac ejection fraction Elevated cholesterol HTN (hypertension) Surgical History Surgical History Hx of cardiac catheterization Hx of vitrectomy H/O colonoscopy History of evacuation of hematoma History of cardiac radiofrequency ablation (RFA) Social History Social History Housing Other:: rents a room in a condo Are you a primary healthcare science specialist to a significant other at home: No Do you presently have visiting nurse or other home services: No Patient Tobacco Use Status: Former Tobacco user Tobacco use type: Cigarette Years Smoked: 47 Use of substances other than those prescribed or required for medical reasons: No Have you been hit, kicked, punched, or otherwise hurt by someone within the past year? If so, by whom?: No Spiritual Healthcare Practices: none Bahai Healthcare Practices: none Cultural Healthcare Practices: none Are you DNR?: No Advance Directives on File: No Recently lost weight without trying: No Eating poorly because of decreased appetite: No Nutrition Risks: No Nutritional Risk Patient : No (N/A) FDLMP: N/A : No (N/A) Poor oral hygiene: No (upper full & lower partial denture) Meds Allergies Allergy/AdvReac Type Severity Reaction Status Date / Time carbamazepine AdvReac Intermediate reac. to Verified 05/26/24 15:32 generic-lack of balance/double vision-brand name ok haloperidol [From Haldol] AdvReac Intermediate extreme Verified 05/26/24 15:32 restlessness/eyelids sag Home Medications ?Medication ?Instructions ?Recorded ?Confirmed ?Last Taken ?Type albuterol sulfate 90 mcg/actuation 2 puff inhalation Q4-6H PRN 05/27/24 05/27/24 Unknown History aerosol inhaler (Ventolin HFA) Shortness Of Breath amlodipine 5 mg tablet 5 mg PO BEDTIME 05/27/24 05/27/24 06/14/24 History aripiprazole 15 mg tablet (Abilify) 15 mg PO BEDTIME 05/27/24 05/27/24 Unknown History atorvastatin 10 mg tablet 10 mg PO BEDTIME 05/27/24 05/27/24 Unknown History azelastine 137 mcg (0.1 %) nasal 2 spray intranasal BID PRN Nasal 05/27/24 05/27/24 Unknown History spray Congestion bupropion HCl 200 mg tablet,12 hr 200 mg PO QAM 05/27/24 05/27/24 06/15/24 History sustained-release calcifediol 30 mcg capsule,24 30 mcg PO DAILY 05/27/24 05/27/24 Unknown History hr,extended release (Rayaldee) carbamazepine 200 mg 200 mg PO BID 05/27/24 05/27/24 06/15/24 History tablet,extended release,12 hr (Tegretol XR) coenzyme Q10 100 mg capsule (Co 100 mg PO QAM 05/27/24 05/27/24 Unknown History Q-10) fluticasone fur. 100 mcg-umeclid 1 ea inhalation DAILY 05/27/24 05/27/24 06/15/24 History 62.5 mcg-vilant 25 mcg inhalat.powder (Trelegy Ellipta) levothyroxine 112 mcg tablet 112 mcg PO QAM 05/27/24 05/27/24 06/15/24 History (Synthroid) losartan 25 mg tablet 25 mg PO DAILY 05/27/24 05/27/24 Unknown History metoprolol succinate 25 mg 25 mg PO BEDTIME 05/27/24 05/27/24 06/14/24 History tablet,extended release 24 hr risperidone 1 mg tablet 1 mg PO BEDTIME 05/27/24 05/27/24 Unknown History sodium bicarbonate 650 mg tablet 650 mg PO BID 05/27/24 05/27/24 Unknown History vit C 250 mg-vit E 90 mg-zinc 40 1 tab PO BID 05/27/24 05/27/24 Unknown History mg-copper 1 [id number]-uafvyc capsule (PreserVision AREDS-2) Exam Airway Mallampati Class: II TM Dist: >3cm Neck ROM: Full Heart: rrr Lungs: cta Assessment and Plan Assessment Anesthesia Assessment: Anesthesia Plan Discussed Final Anesthetic Review NPO: Yes ASA Class: III Final Preanesthetic Review: No Changes in Pt Med Stat, Meds/Allgs Chart Reviewed, Consent Obtained/Reviewed and Anes Risks/Benef Reviewed Patient Risk: Intermediate Procedure Risk: Low Anesthetic Plan Anesthetic Plan: MAC: Disposition: Standard PACU
[2024-06-15 06:54] VITALS: BP 146/60; PULSE 73; RESP 20; TEMP 36.3; O2SAT 97
[2024-06-15] MEDS: Ketorolac Tromethamine 0.5% Op 10 ML DROPS 1 DROP EYE-RIGHT ×3 (07:15→07:17)
[2024-06-15] MEDS: Cyclopentolate 1 % Ophth Sol 2 ML DRPBTL 1 DROP EYE-RIGHT ×3 (07:15→07:17)
[2024-06-15] MEDS: Lactated Ringers 500 ML 50 ML IV (07:15)
[2024-06-15] MEDS: Tropicamide 1 % Ophth Sol 3 ML BTL 1 DROP EYE-RIGHT ×3 (07:15→07:17)
[2024-06-15] MEDS: Tetracaine HCl/PF 0.5% Oph Sol 4 ML DROPS 1 DROP EYE-RIGHT (07:15)
[2024-06-15] MEDS: Phenylephrine HCL 2.5% Oph SoL 2 ML BOTTLE 1 DROP EYE-RIGHT ×3 (07:16→07:17)
--- NOTE | 2024-06-15 08:48 | MHC.SHP ---
Pre-Procedural Eval Section A - 24 Hr Update-Section A only Date of Service: 06/15/24 The patient is an INPATIENT: No Changes since office visit: No Cold of Flu in the past 2 weeks, No New Medical Problems, No Changes in Medication and No Patient answered all questions The patient has been examined within 24 hours of the surgical procedure. The History & Physical has been completed within 30 days and I have reviewed it.: Yes Section B - Complete if H&P > 30 days Chief Complaint: Age-related nuclear cataract, right eye Allergies: Allergies Allergy/AdvReac Type Severity Reaction Status Date / Time carbamazepine AdvReac Intermediate reac. to Verified 05/26/24 15:32 generic-lack of balance/double vision-brand name ok haloperidol [From Haldol] AdvReac Intermediate extreme Verified 05/26/24 15:32 restlessness/eyelids sag Plan Diagnosis/Plan: Unchanged I have reviewed the history and physical and performed a pertinent physical examination on my patient. No changes have occurred unless specified. Time Spent With Patient Time: Total time managing care of this patient today ____ minutes.
--- NOTE | 2024-06-15 08:49 | P.PCNO_ITS ---
Ophthalmology Procedure Procedure Date of Service: 06/15/24 Ophthalmology Viscoelastic: Healon Duet Dual Pack Pro Ophthalmology Lenses: IOL Acrysof MP - MA60AC (21) Procedure Notes: PREOPERATIVE DIAGNOSIS: Decreased visual acuity right eye secondary to cataract POSTOPERATIVE DIAGNOSIS: Same PROCEDURE: Right cataract extraction with intraocular lens insertion SURGEON: Jamar Khan M.D. ANESTHESIA: Topical/MAC ESTIMATED BLOOD LOSS: None COMPLICATIONS: None After obtaining informed consent, the patient was brought to the operating room suite and placed in the supine position. After adequate sedation per anesthesia, topical drops of Tetracaine were given to the right eye. The eye was then prepped and draped in the usual sterile fashion. The operating room microscope was then positioned over the operative eye and a lid speculum placed. A paracentesis was created. Viscoelastic was then instilled into the anterior chamber. A three plane incision was then created temporally, utilizing a 2.85 mm keratome. Capsulotomy forceps were then utilized to create a circular tear capsulotomy. Hydrodissection and hydrodelineation were carried out until adequate mobilization of the nucleus occurred. Phacoemulsification was then utilized to remove the dense central nucl eus followed by removal of the cortical material utilizing the automated aspiration irrigation unit. Viscoelastic was instilled into the posterior capsular bag followed by placement of a posterior chamber intraocular lens without difficulty. The residual Viscoelastic was then removed utilizing the automated IA machine. The wound was checked and found to be watertight. The patient tolerated the procedure well and the lid speculum was removed. Intracameral injection of Vigamox 0.1 mL followed by a subtenon injection of Kenalog-40 0.2 mL were administered. The patient will be seen in the a.m.
[2024-06-15 09:18] VITALS: BP 149/61; PULSE 69; RESP 16; TEMP 36.1; O2SAT 100
== END 2024-06-15 09:20 | disposition home or self-care (01) ==
PROVIDERS: PCP Internal Medicine; Visit Provider Ophthalmology
PROC: (CPT 66985; principal; 2024-06-15 08:30)
DX: H25.11 Age-related nuclear cataract, right eye (principal); H54.7 Unspecified visual loss; H35.3132 Nonexudative age-related macular degeneration, bilateral, intermediate dry stage; H35.3220 Exudative age-related macular degeneration, left eye, stage unspecified; H18.413 Arcus senilis, bilateral; I12.9 Hypertensive chronic kidney disease with stage 1 through stage 4 chronic kidney disease, or unspecified chronic kidney disease; N18.9 Chronic kidney disease, unspecified; E78.00 Pure hypercholesterolemia, unspecified; E03.9 Hypothyroidism, unspecified; J44.9 Chronic obstructive pulmonary disease, unspecified; F31.9 Bipolar disorder, unspecified; Z79.51 Long term (current) use of inhaled steroids; Z79.899 Other long term (current) drug therapy; Z88.8 Allergy status to other drugs, medicaments and biological substances; Z98.890 Other specified postprocedural states; Z87.891 Personal history of nicotine dependence
CPT/HCPCS: 66984; J3301; V2630